=== PATIENT | female | born 1945 | race Caucasian/White ===

== ENCOUNTER 2016-07-02 19:33 | Emergency (ER) | payer MEDICARE ==
[2015-10-25 13:46] VITALS: BMI 22.8
[~2016-07-02 19:33] MED LIST: ANUSOL-HC25 MG RC; ARICEPT5 MG PO; ATIVAN0.5 MG PO; BAYER CHEWABLE81 MG PO; BUSPAR10 MG PO; COLACE100 MG PO; DEPAKOTE SPRIN125 MG PO; DULCOLAX5 MG PO; EFFEXOR37.5 MG PO; KLONOPIN0.5 MG PO; KLONOPIN1 MG PO; LATUDA80 MG PO; LEXAPRO10 MG PO; LIDODERM 5 %1 PATCH TRANSDERM; MICONAZOLE NITR28 GM TOPICAL; MIRALAX17 GM PO; NORCO 7.5/325 T1 TA1 PO; OXYTROL PATCH1 PATCH TRANSDERM; PRILOSEC20 MG PO; REMERON30 MG PO; THERAGRAN M [BK1 TAB PO; THEREMS-M1 TAB PO; TRAZODONE HCL50 MG PO; VITAMIN D5000 UNIT PO; VOLTAREN100 GM TOPICAL; ZYPREXA ZYDI5 MG/TAB PO
== END 2016-07-02 21:46 | disposition home or self-care (01) ==
LOC: D.ER 19:33
DX: S01.01XA Laceration without foreign body of scalp, initial encounter (principal); W19.XXXA Unspecified fall, initial encounter; Y93.89 Activity, other specified; Y92.019 Unspecified place in single-family (private) house as the place of occurrence of the external cause; S09.90XA Unspecified injury of head, initial encounter; F41.9 Anxiety disorder, unspecified; F31.9 Bipolar disorder, unspecified; F32.9 Major depressive disorder, single episode, unspecified

== ENCOUNTER 2016-07-02 22:37 | Emergency (ER) | payer MEDICARE ==
[2015-10-25 13:46] VITALS: BMI 22.8
[2016-07-02 23:16] LABS: BASOPHILS 0.2 % (0.0-2.0); EOSINOPHILS 2.3 % (0-7); HEMATOCRIT 34.1 % (36.0-48.0); IMMATURE GRANULOCYTES 0.3 % (0-5); LYMPHOCYTES 34.7 % (15-50); MCH 30.7 pg (26.0-34.0); MCHC 32.3 g/dL (31.0-37.0); MCV 95.3 fL (80.0-100.0); MEAN PLATELET VOLUME 9.9 fL (7.4-10.4); MONOCYTES 18.4 % (2-11); NEUTROPHILS 44.1 % (40-80); PLATELET COUNT 124 10x3/uL (130-400); RBC 3.58 10x6/uL (4.00-5.40); RDW 13.8 % (11.5-14.5); WBC 6.6 10x3/uL (4.8-10.8)
[2016-07-02 23:33] LABS: ALBUMIN 3.3 g/dL (3.4-5.0); ANION GAP 8.2 mmol/L (8-16); BILIRUBIN - TOTAL 0.2 mg/dL (0.2-1.3); CARBON DIOXIDE 33.5 mmol/L (21.0-32.0); CREATININE - SERUM 1.7 mg/dL (0.6-1.3); POTASSIUM - SERUM 4.7 mmol/L (3.5-5.1); PROTEIN - SERUM 6.7 g/dL (6.4-8.2)
[2016-07-02 23:40] LABS: CALCIUM 8.4 mg/dL (8.5-10.1)
== END 2016-07-02 23:56 | disposition home or self-care (01) ==
LOC: D.ER 22:37
PROVIDERS: Emergency Medicine
DX: I95.9 Hypotension, unspecified (principal); F41.9 Anxiety disorder, unspecified; F31.9 Bipolar disorder, unspecified; F03.90 Unspecified dementia, unspecified severity, without behavioral disturbance, psychotic disturbance, mood disturbance, and anxiety

== ENCOUNTER 2017-06-12 22:50 | Inpatient (IN) | payer MEDICARE ==
[~2017-06-12] VITALS: Ht 170.2 cm; Wt 72.6 kg
--- NOTE | ~2017-06-12 | PN ---
PATIENT:KOFI AWAD MEDICAL RECORD: [id number] LOCATION:SUSHIL CastroJayy ADMISSION DATE: 06/13/17 PROGRESS NOTE DATE OF SERVICE: 06/24/2017 SUBJECTIVE: The patient's case was discussed with staff. She has no new complaint. OBJECTIVE: The patient is in good behavioral control with limited insight about her condition. She is anxious to leave the hospital. Unfortunately, [facility] and the office of long-term care have not given approval yet. Once they do, I anticipate transitioning her back to the skilled nursing. TRANSINT:[id number] Voice Confirmation ID: [id number] DOCUMENT ID: [id number] JERALD CHRISTY MD at 0808 CC: [id number] DICTATION DATE: 06/24/17 1515 CHILD CARE SPECIALIST: 06/24/17 1542 ADM IN [facility] [address] [place] [address]
--- NOTE | ~2017-06-12 | PN ---
PATIENT:KOFI AWAD MEDICAL RECORD: [id number] LOCATION:SUSHIL Recio ADMISSION DATE: 06/13/17 PROGRESS NOTE DATE OF SERVICE: 06/17/2017 SUBJECTIVE: The patient's case was discussed with staff. She has no new complaint. OBJECTIVE: The patient is in good behavioral control with limited insight about her condition. She tolerates her medicines well, but insists that she is very anxious. ASSESSMENT: No change in diagnoses. PLAN: The patient will be given Klonopin at a higher dose. Her long-term prognosis is guarded. Brief supportive and educational interventions were made, and I am going to check a Depakote level in the morning. TRANSINT:[id number] Voice Confirmation ID: [id number] DOCUMENT ID: [id number] JERALD CHRISTY MD at 1317 CC: [id number] DICTATION DATE: 06/17/17 1242 STORE ASSOCIATE: 06/17/17 1320 ADM IN [place] [id number] [place] [address]
--- NOTE | ~2017-06-12 | PN ---
PATIENT:KOFI AWAD MEDICAL RECORD: [id number] LOCATION:SUSHIL Recio ADMISSION DATE: 06/13/17 PROGRESS NOTE DATE OF SERVICE: 06/14/2017 SUBJECTIVE: The patient's case was discussed with staff. She has no new complaint. OBJECTIVE: The patient denies intent to harm herself or others. She generally tolerates her medicines well. She has been sleeping reasonably well. ASSESSMENT: No change in diagnoses. PLAN: The patient has significantly improved. She has limited insight about her situation. I am going to treat her with a lower dose of Klonopin and will maintain her on her other medications. TRANSINT:[id number] Voice Confirmation ID: [id number] DOCUMENT ID: [id number] JERALD CHRISTY MD at 1105 CC: [id number] DICTATION DATE: 06/14/17 1007 HOME CARE CHAPLAIN: 06/14/17 1238 ADM IN [place] [address] [place] [address]
--- NOTE | ~2017-06-12 | PN ---
PATIENT:KOFI AWAD MEDICAL RECORD: [id number] LOCATION:SUSHIL BorgesRafaelJayy ADMISSION DATE: 06/13/17 PROGRESS NOTE DATE OF SERVICE: 06/18/2017 SUBJECTIVE: The patient's case was discussed with staff. She has no new complaint. OBJECTIVE: The patient is calm and cooperative. She has limited insight about her condition. ASSESSMENT: No change in diagnoses. PLAN: The patient denies that she would seek to harm herself or others. She generally tolerates her medicines well. Eye contact is fair. I do plan on transitioning her back to the [facility]. She wants to have an apartment on her own in [place]. TRANSINT:[id number] Voice Confirmation ID: [id number] DOCUMENT ID: [id number] JERALD CHRISTY MD at 1322 CC: [id number] DICTATION DATE: 06/18/17 1335 CHEMICAL PLANT TECHNICAL DIRECTOR: 06/18/17 1354 ADM IN [place] [address] [place] [id number]
--- NOTE | ~2017-06-12 | DS ---
PATIENT:KOFI AWAD :49 MEDICAL RECORD: [id number] DISCHARGE SUMMARY ADMISSION DATE: 06/13/17 DISCHARGE DATE: 06/27/17 IDENTIFYING DATA: The patient is 71 years old and she was admitted to the hospital on a voluntary basis because of suicidal thoughts. The patient lives in a local intermediate. She has been in the intermediate for a long time and recently has become increasingly depressed. She endorses numerous neurovegetative depressive symptoms and has recently been having thoughts about killing herself. She had made plans to kill herself by electrocuting herself at the intermediate. She was clearly manic and delusional in addition to being depressed. She was admitted to the hospital to evaluate and treat these symptoms. HOSPITAL COURSE: The patient was admitted to the hospital and fully evaluated from both a medical, psychological, and social standpoint. She was treated with both mood stabilizing and memory enhancing medications. She did show improvement in her overall mood lability and a reduction in her delusional thought processes. She had a therapeutic lithium level and was subsequently transitioned out of the hospital. DISCHARGE DIAGNOSES: AXIS I: Schizoaffective disorder, bipolar type. AXIS II: Deferred. AXIS III: None. AXIS IV: Moderate stressors. AXIS V: Global assessment of functioning is 35. PLAN: At the time of discharge, the patient was in good behavioral control and had no active thoughts of harming herself or others. She was tolerating her medications well. Her long-term prognosis is guarded. TRANSINT:[id number] Voice Confirmation ID: [id number] DOCUMENT ID: [id number] JERALD CHRISTY MD at 1315 CC: [id number] DICTATION DATE: 07/02/17 1039 CHEMICAL EQUIPMENT SALES ENGINEER: 07/03/17 0329 DIS IN 06/27/17 [facility] [address] [place] [id number]
--- NOTE | ~2017-06-12 | PN ---
PATIENT:KOFI AWAD MEDICAL RECORD: [id number] LOCATION:SUSHIL Recio ADMISSION DATE: 06/13/17 PROGRESS NOTE DATE OF SERVICE: 06/25/2017 SUBJECTIVE: The patient's case was discussed with staff. She has no new complaint. OBJECTIVE: The patient is in good behavioral control. She has poor insight about her condition. She tolerates her medicines well. ASSESSMENT: No change in diagnoses. PLAN: Current medicines and therapies have been reviewed and will be maintained. Her long-term prognosis is guarded. I anticipate she can be transitioned out of the hospital soon if this level of improvement is maintained. TRANSINT:[id number] Voice Confirmation ID: [id number] DOCUMENT ID: [id number] JERALD CHRISTY MD at 1240 CC: [id number] DICTATION DATE: 06/25/17 1251 FEEDER WORKER POWER UNIT OPERATOR: 06/25/17 1310 ADM IN [place] [id number] [place] [address]
--- NOTE | ~2017-06-12 | PSY ---
PATIENT NAME:KOFI AWAD MEDICAL RECORD: [id number] : 49 LOCATION:SUSHIL Recio8 ADMISSION DATE: 06/13/17 ACCOUNT: [id number] PSYCHIATRIC EVALUATION DATE OF EVALUATION: 06/13/17 IDENTIFYING DATA: The patient is 71 years old and she was admitted to the hospital on a voluntary basis. CHIEF COMPLAINT: Suicidal thoughts. HISTORY OF PRESENT ILLNESS: The patient comes to us from a local intermediate where she has been for years. The patient has been quite depressed and endorses numerous neurovegetative depressive symptoms. In addition to this, she has recently begun thinking about killing herself. She has made a plan to electrocute herself. Apparently, she did this after reading about a philosopher who did this a long time ago. She told her plan to someone at the intermediate, who intervened. She repeats it to me when asked, says that she is not sure if she would still carry it out, but that she certainly is unhappy and does not really care what happens to her. PAST MEDICAL HISTORY: None. PAST PSYCHIATRIC HISTORY: Significant for longstanding mental illness with an established diagnosis of schizoaffective disorder, bipolar type. She also has a history of dementia. SOCIAL HISTORY: The patient is from [place]. 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 She became mentally ill and dropped out. She was 3 times through her adult life and 3 times. She has no children, and she has 2 sisters who are about 10 years older than her, both live out of state and she has little contact with them. MENTAL STATUS EXAMINATION: The patient is awake, alert, and oriented to person, place, time, and situation. Her mood is flat. Her affect is constricted. Thought processes are circumstantial. Memory, concentration, and abstraction abilities are at least moderately impaired, and she denies any active intent to harm herself or others as well as overt psychotic symptoms. ASSETS: Supportive family members. LIABILITIES: Limited insight. DIAGNOSTIC IMPRESSION: AXIS I: Schizoaffective disorder, bipolar type. AXIS II: Deferred. AXIS III: None. AXIS IV: Moderate stressors. AXIS V: Global assessment of functioning is 30. PLAN: At this time, the patient is admitted to the hospital for a comprehensive medical, psychological, and social evaluation. She will be treated with both mood stabilizing and memory enhancing medications as deemed appropriate. Her long-term prognosis is guarded. TRANSINT:[id number] Voice Confirmation ID: [id number] DOCUMENT ID: [id number] JERALD CHRISTY MD at 0944 CC: [id number] DICTATION DATE: 06/13/17 1223 PREPARATION OPERATOR: 06/13/17 1236 ADM IN [place] [id number] [place] [id number]
--- NOTE | ~2017-06-12 | PN ---
PATIENT:KOFI AWAD MEDICAL RECORD: [id number] LOCATION:SUSHIL Recio ADMISSION DATE: 06/13/17 PROGRESS NOTE DATE OF SERVICE: 06/27/2017 SUBJECTIVE: No new complaint. OBJECTIVE: The patient's Estefany assessment has returned and she will be able to be discharged today to [facility]. On exam, mood is euthymic. Affect is pleasant, somewhat expansive. Speech is fluent. Content of thought is negative for overt psychosis. Sensorium unchanged. ASSESSMENT: No change in diagnosis. PLAN: Anticipate discharge later today on current medications. TRANSINT:[id number] Voice Confirmation ID: [id number] DOCUMENT ID: [id number] JABARI MARCIAL III, MD at 0503 CC: [id number] DICTATION DATE: 06/27/17 1142 MANAGER FINANCIAL: 06/27/17 1214 DIS IN 06/27/17 [facility] [address] [place] [address]
--- NOTE | ~2017-06-12 | PN ---
PATIENT:KOFI AWAD MEDICAL RECORD: [id number] LOCATION:SUSHIL Castro112 ADMISSION DATE: 06/13/17 PROGRESS NOTE DATE OF SERVICE: 06/21/2017 SUBJECTIVE: The patient's case was discussed with staff. She has no new complaint. OBJECTIVE: The patient denies intent to harm herself or others. She generally tolerates her medicines well. She is limited in her insight. [facility] the [facility] and if this level of improvement is maintained, I would anticipate she can go back soon. TRANSINT:[id number] Voice Confirmation ID: [id number] DOCUMENT ID: [id number] JERALD CHRISTY MD at 1101 CC: [id number] DICTATION DATE: 06/21/17 1219 DIVISION SERVICE MANAGER: 06/21/17 1252 ADM IN [facility] [address] [place] [address]
--- NOTE | ~2017-06-12 | PN ---
PATIENT:KOFI AWAD MEDICAL RECORD: [id number] LOCATION:SUSHIL Castro112 ADMISSION DATE: 06/13/17 PROGRESS NOTE DATE OF SERVICE: 06/26/2017 SUBJECTIVE: The patient's case was discussed with staff. She has no new complaint. OBJECTIVE: The patient denies intent to harm herself or others. She generally tolerates her medicines well. Eye contact is fair. ASSESSMENT: No change in diagnoses. PLAN: Brief supportive and educational interventions were made. I anticipate the patient can be transitioned out of the hospital soon. At this point, the office of long-term care has not given us approval and tomorrow is Friday. It may come soon, but it would appear that she is going to be with us through the weekend unless the notification comes back this afternoon. TRANSINT:[id number] Voice Confirmation ID: [id number] DOCUMENT ID: [id number] JERALD CHRISTY MD at 1418 CC: [id number] DICTATION DATE: 06/26/17 1255 RADIO MECHANIC APPRENTICE: 06/26/17 1328 DIS IN 06/27/17 [facility] [address] [place] [address]
--- NOTE | ~2017-06-12 | PN ---
PATIENT:KOFI AWAD MEDICAL RECORD: [id number] LOCATION:SUSHIL Recio ADMISSION DATE: 06/13/17 PROGRESS NOTE DATE OF SERVICE: 06/19/2017 SUBJECTIVE: The patient's case was discussed with staff. She has no new complaint. OBJECTIVE: The patient is in good behavioral control with poor insight about her condition. She says that she wants to go live on the street if she cannot live in her own apartment or is going to be forced to go back to [facility]. It is pointless to try to reason with her. ASSESSMENT: No change in diagnoses. PLAN: Current medicines have been reviewed and will be maintained. Long-term prognosis is guarded. TRANSINT:[id number] Voice Confirmation ID: [id number] DOCUMENT ID: [id number] JERALD CHRISTY MD at 1303 CC: [id number] DICTATION DATE: 06/19/17 1348 PATTERN GENERATOR OPERATOR: 06/19/17 1415 ADM IN [place] [id number] [place] [address]
--- NOTE | ~2017-06-12 | PN ---
PATIENT:KOFI AWAD MEDICAL RECORD: [id number] LOCATION:SUSHIL BorgesRafaelJayy ADMISSION DATE: 06/13/17 PROGRESS NOTE DATE OF SERVICE: 06/20/2017 SUBJECTIVE: The patient's case was discussed with staff. She has no new complaint. OBJECTIVE: The patient denies intent to harm herself or others. She generally tolerates her medicines well. ASSESSMENT: No change in diagnoses. PLAN: Brief supportive and educational interventions were made. The patient apparently told Dr. Christina that she was going to kill herself yesterday, but she tells me today she was just angry and frustrated about going back to the long-term. TRANSINT:[id number] Voice Confirmation ID: [id number] DOCUMENT ID: [id number] JERALD CHRISTY MD at 1204 CC: [id number] DICTATION DATE: 06/20/17 1315 PIZZA MAKER: 06/20/17 1329 ADM IN [place] [address] [place] [address]
--- NOTE | ~2017-06-12 | PN ---
PATIENT:KOFI AWAD MEDICAL RECORD: [id number] LOCATION:JonyAIMEEJb CastroJayy ADMISSION DATE: 06/13/17 PROGRESS NOTE DATE OF SERVICE: 06/23/2017 SUBJECTIVE: The patient's case was discussed with staff. She has no new complaint. OBJECTIVE: The patient is in good behavioral control. She denies any intent to harm herself or others. She has resolved herself to going back to the [facility], although she still wants to plead her case with her older sister who is her power of collar tacker. ASSESSMENT: No change in diagnoses. PLAN: Supportive and educational interventions were made. Nursing Home prognosis is guarded. TRANSINT:[id number] Voice Confirmation ID: [id number] DOCUMENT ID: [id number] JERALD CHRISTY MD at 1457 CC: [id number] DICTATION DATE: 06/23/17 1114 ON SITE NURSE: 06/23/17 1200 ADM IN [place] [address] [place] [address]
--- NOTE | ~2017-06-12 | PN ---
PATIENT:KOFI AWAD MEDICAL RECORD: [id number] LOCATION:SUSHIL Recio ADMISSION DATE: 06/13/17 PROGRESS NOTE DATE OF SERVICE: 06/15/2017 SUBJECTIVE: The patient's case was discussed with staff. She has no new complaint. OBJECTIVE: The patient is disorganized with poor insight about her condition. She complains of anxiety, but looks very calm. ASSESSMENT: No change in diagnoses. PLAN: Brief supportive and educational interventions were made. The patient's long-term prognosis is guarded. TRANSINT:[id number] Voice Confirmation ID: [id number] DOCUMENT ID: [id number] JERALD CHRISTY MD at 1156 CC: [id number] DICTATION DATE: 06/15/17 1208 SNACK BAR COOK: 06/15/17 1238 ADM IN [place] [id number] [place] [address]
[2017-06-12 23:12] LABS: APPEARANCE CLEAR (CLEAR); BACTERIA FEW /hpf (NONE SEEN); BILIRUBIN NEGATIVE (NEGATIVE); COLOR YELLOW (YELLOW); EPITHELIAL CELLS RARE /hpf (0-5); GLUCOSE NEGATIVE (NEGATIVE); KETONE NEGATIVE (NEGATIVE); NITRITE NEGATIVE (NEGATIVE); PROTEIN NEGATIVE (NEGATIVE); RED CELLS - URINE 0-5 /hpf (0-5); SPECIFIC GRAVITY 1.005 (1.005-1.020); UROBILINOGEN NORMAL (NORMAL)
[2017-06-12 23:51] LABS: BASOPHILS 0.3 % (0-2); EOSINOPHILS 2.7 % (0-7); HEMATOCRIT 34.3 % (36.0-48.0); HEMOGLOBIN 11.1 g/dL (12-16); IMMATURE GRANULOCYTES 0.3 % (0-5); LYMPHOCYTES 33.7 % (15-50); MCH 30.6 pg (26.0-34.0); MCHC 32.4 g/dL (31.0-37.0); MCV 94.5 fL (80.0-100.0); MEAN PLATELET VOLUME 9.8 fL (7.4-10.4); MONOCYTES 14.3 % (2-11); NEUTROPHILS 48.7 % (40-80); RBC 3.63 10x6/uL (4.00-5.40); RDW 13.8 % (11.5-14.5)
[2017-06-12 23:54] LABS: PLATELET COUNT 190 10x3/uL (130-400)
[2017-06-13 00:13] LABS: UDS - AMPHET NEGATIVE QUAL (NEGATIVE); UDS - BARB NEGATIVE QUAL (NEGATIVE); UDS - BENZO NEGATIVE QUAL (NEGATIVE); UDS - COCAINE NEGATIVE QUAL (NEGATIVE); UDS - OPIATE NEGATIVE QUAL (NEGATIVE); UDS - PCP NEGATIVE QUAL (NEGATIVE); UDS - THC NEGATIVE QUAL (NEGATIVE)
[2017-06-13 00:15] LABS: ALBUMIN 3.1 g/dL (3.4-5.0); ANION GAP 13.8 mmol/L (8-16); BILIRUBIN - TOTAL 0.16 mg/dL (0.2-1.3); CALCIUM 8.4 mg/dL (8.5-10.1); CARBON DIOXIDE 26.6 mmol/L (21.0-32.0); CREATININE - SERUM 1.4 mg/dL (0.6-1.3); POTASSIUM - SERUM 4.4 mmol/L (3.5-5.1); PROTEIN - SERUM 6.2 g/dL (6.4-8.2); VALPROIC ACID (DEPAKOTE) 32.7 ug/mL (50.0-100.0)
[2017-06-13 01:50] VITALS: BP 130/64
[2017-06-13] MEDS ORDERED: DEPAKOTE ER500 MG PO (05:53)
[2017-06-13] MEDS ORDERED: DULCOLAX5 MG PO (06:03)
[2017-06-13] MEDS ORDERED: EFFEXOR XR37.5 MG PO (06:06)
[2017-06-13] MEDS ORDERED: ZYPREXA10 MG PO (06:11)
[2017-06-13] MEDS ORDERED: ARICEPT5 MG PO (06:12)
[2017-06-13] MEDS ORDERED: LATUDA80 MG PO (06:12)
[2017-06-13] MEDS ORDERED: REMERON30 MG PO (06:14)
[2017-06-13] MEDS ORDERED: TRAZODONE HCL50 MG PO (06:15)
[2017-06-13] MEDS ORDERED: SINEMET CR 50-1 EACH PO (06:17)
[2017-06-13] MEDS ORDERED: SENNA PLUS TA1 UDTAB PO (06:18)
[2017-06-13] MEDS ORDERED: THEREMS-M1 TAB PO (06:19)
[2017-06-13] MEDS ORDERED: ACETAMINOPHEN325 MG PO (06:21)
[2017-06-13 07:34] LABS: CHOL - HDL RATIO 3.2 ratio (2.3-4.1); LDL-HDL RATIO 1.5 ratio (1.5-3.5)
[2017-06-13 07:43] LABS: HEMOGLOBIN A1C 5.9 % (4.8-6.0)
[2017-06-13 09:37] VITALS: BP 136/65
[2017-06-13 11:31] VITALS: BMI 25.1
[2017-06-13 19:35] VITALS: BP 122/60
[2017-06-14 10:20] VITALS: BP 136/76
[2017-06-14 20:03] VITALS: BP 132/64
[2017-06-15 07:00] VITALS: BP 122/64
[2017-06-15 08:52] VITALS: BP 122/64
[2017-06-15 19:25] LABS: APPEARANCE CLEAR (CLEAR); BILIRUBIN NEGATIVE (NEGATIVE); COLOR STRAW (YELLOW); GLUCOSE NEGATIVE (NEGATIVE); KETONE NEGATIVE (NEGATIVE); NITRITE POSITIVE (NEGATIVE); PROTEIN TRACE mg/dL (NEGATIVE); SPECIFIC GRAVITY 1.005 (1.005-1.020); UROBILINOGEN NORMAL (NORMAL)
[2017-06-15 19:27] LABS: BACTERIA FEW /hpf (NONE SEEN); WHITE CELLS - URINE 0-5 /hpf (0-5)
[2017-06-15 19:53] VITALS: BP 120/58
[2017-06-16 08:22] VITALS: BP 151/061; BP 181/061
[2017-06-16 19:21] VITALS: BP 107/48
[2017-06-17 07:00] VITALS: BP 115/68
[2017-06-17 13:15] VITALS: Ht 170.2 cm; Wt 72.6 kg
[2017-06-17 19:46] VITALS: BP 137/87
[2017-06-18 08:55] VITALS: BP 139/063
[2017-06-18 19:41] VITALS: BP 114/75
[2017-06-19 07:37] VITALS: BP 116/58
[2017-06-19 19:30] VITALS: BP 126/86
[2017-06-20 08:44] VITALS: BP 145/74
[2017-06-20 19:30] VITALS: BP 131/81
[2017-06-21 10:50] VITALS: BP 166/84
[2017-06-21 20:33] VITALS: BP 160/60
[2017-06-22 07:00] VITALS: BP 127/74
[2017-06-22 20:30] VITALS: BP 110/50; BP 110/54
[2017-06-23 08:36] VITALS: BP 136/91
[2017-06-23 19:56] VITALS: BP 125/68
[2017-06-24 08:49] VITALS: BP 148/091
[2017-06-25 08:00] VITALS: BP 128/054
[2017-06-25 19:36] VITALS: BP 120/51
[2017-06-26 09:37] VITALS: BP 132/81
[2017-06-26 20:35] VITALS: BP 120/52
[2017-06-27 09:32] VITALS: BP 119/74
[2017-06-27] MEDS ORDERED: KLONOPIN1 MG PO (11:14)
[2017-06-27] MEDS ORDERED: VITAMIN D5000 UNIT PO (11:15)
== END 2017-06-27 16:30 | DRG 885 ==
LOC: D.ER 22:50 → D.PSYCH 06-13 01:10
PROVIDERS: Family Medicine; Psychiatry & Neurology Psychiatry
DX: F25.0 Schizoaffective disorder, bipolar type (principal); R45.851 Suicidal ideations; F41.9 Anxiety disorder, unspecified; G20 Parkinson's disease; F02.80 Dementia in other diseases classified elsewhere, unspecified severity, without behavioral disturbance, psychotic disturbance, mood disturbance, and anxiety; K21.9 Gastro-esophageal reflux disease without esophagitis; K59.09 Other constipation; L84 Corns and callosities; E55.9 Vitamin D deficiency, unspecified

== ENCOUNTER 2017-09-10 19:45 | Inpatient (IN) | payer MEDICARE ==
--- NOTE | ~2017-09-10 | DS ---
PATIENT:RACHEAL AWAD :49 MEDICAL RECORD: [id number] DISCHARGE SUMMARY ADMISSION DATE: 09/10/17 DISCHARGE DATE: 09/17/17 IDENTIFYING DATA: The patient is 72 years old and well known to me from previous clinical contact. She lives in a local assisted and has been making suicidal statements and endorsing vegetative depressive symptoms. All of this is related to frustration about not being able to live on her own. She has a guardian who happens to be her older sister. The older sister is almost 80 or is 80 and lives in [place], [place]. Racheal has a long history of not functioning well on her own and for a long time has been in a assisted. She is frustrated by these circumstances and says she wants to kill herself for that reason. HOSPITAL COURSE: The patient was admitted to the hospital and fully evaluated from both a medical, psychological, and social standpoint. She was treated with antidepressant and mood stabilizing medications and actually did show improvement in her condition. She was not happy about the circumstances, particularly with her sister, but she was accepting of it and returned to the assisted without making any threats. DISCHARGE DIAGNOSES: AXIS I: Schizoaffective disorder, bipolar type. AXIS II: None. AXIS III: None. AXIS IV: Moderate stressors. AXIS V: Global Assessment of Functioning is 40. PLAN: At the time of discharge, the patient was in good behavioral control with limited insight about her condition. She was tolerating her medications well. Her long-term prognosis is guarded. TRANSINT:[id number] Voice Confirmation ID: [id number] DOCUMENT ID: [id number] JERALD CHRISTY MD at 1444 CC: [id number] DICTATION DATE: 09/23/17 1514 ARTIFICIAL INSEMINATION TECHNICIAN: 09/23/17 1619 DIS IN 09/17/17 [place] [id number] [place] [address]
--- NOTE | ~2017-09-10 | PN ---
PATIENT:KOFI AWAD MEDICAL RECORD: [id number] LOCATION:SUSHIL Recio ADMISSION DATE: 09/10/17 PROGRESS NOTE DATE OF SERVICE: 09/12/2017 SUBJECTIVE: No new complaint offered. OBJECTIVE: The patient has voiced some suicidal ideation, although she does not at the moment. Mood is for the most part euthymic. Affect is still somewhat expansive. Speech is fluent. Content of thought is as noted above. Sensorium shows no change. ASSESSMENT: No change in diagnosis. PLAN: 1. Continue present medications. 2. Continue supportive therapy. TRANSINT:[id number] Voice Confirmation ID: [id number] DOCUMENT ID: [id number] JABARI MARCIAL III, MD at 1341 CC: [id number] DICTATION DATE: 09/12/17 1148 SINGLE CORNER CUTTER: 09/12/17 1154 ADM IN [facility] [address] [place] [id number]
--- NOTE | ~2017-09-10 | PSY ---
PATIENT NAME:KOFI AWAD MEDICAL RECORD: [id number] : 49 LOCATION:JonyCINDY Recio8 ADMISSION DATE: 09/10/17 ACCOUNT: [id number] PSYCHIATRIC EVALUATION DATE OF EVALUATION: 09/11/17 IDENTIFYING DATA: The patient is 71 years old and she is very well known to me from previous clinical contact. She was last here in May of 2017. The patient currently presents back because she has made suicidal statements in the [facility]. She tells me that is correct and that she is unhappy about living in the ch[facility] and that she is going to kill herself by not eating. This was discussed in an open manner and the patient says that she is so unhappy living there and feels so frustrated because she cannot live in her own apartment that she is going to kill herself in this passive manner. She does not endorse many neurovegetative depressive symptoms, in fact she does not present as a depressed individual when I am speaking with her. PAST MEDICAL HISTORY: None. PAST PSYCHIATRIC HISTORY: Significant for longstanding chronic mental illness with an established diagnosis of schizoaffective disorder, bipolar type. She also has a history of dementia that is somewhat poorly documented. SOCIAL HISTORY: The patient is from [place]. She attended the [employer] and was accepted into [employer] where she went for 1 year before she became mentally ill and was forced to withdraw. She was 3 times and has been 3 times. She has no children, but she does have 2 sisters who are both about 10 years older than her, one has a little bit of contact with her and she lives in [place]. MENTAL STATUS EXAMINATION: The patient is awake, alert and oriented to person, place, time, and situation. Her mood is flat. Her affect is constricted. Thought processes are circumstantial. Memory, concentration, and abstraction abilities are moderately impaired and she denies any active intent to harm herself or others as well as any overt psychotic symptoms. ASSETS: Stable living environment. LIABILITIES: Limited insight. DIAGNOSTIC IMPRESSION: AXIS I: Schizoaffective disorder, bipolar type. AXIS II: None. AXIS III: None. AXIS IV: Moderate stressors. AXIS V: Global assessment of functioning is 35. PLAN: At this time, the patient is admitted to the hospital for a comprehensive medical, psychological, and social evaluation. She will be treated with both mood stabilizing and memory enhancing medications as deemed appropriate. Her long-term prognosis is guarded. TRANSINT:[id number] Voice Confirmation ID: [id number] DOCUMENT ID: [id number] JERALD CHRISTY MD at 1403 CC: [id number] DICTATION DATE: 09/11/17 1352 WEB PRODUCTION MANAGER: 09/11/17 1423 ADM IN [place] [address] [place] [address]
--- NOTE | ~2017-09-10 | PN ---
PATIENT:KOFI AWAD MEDICAL RECORD: [id number] LOCATION:SUSHIL Recio ADMISSION DATE: 09/10/17 PROGRESS NOTE DATE OF SERVICE: 09/16/2017 SUBJECTIVE: The patient's case was discussed with staff. She has no new complaint. OBJECTIVE: The patient is in good behavioral control with limited insight about her condition. She tolerates her medicines well. ASSESSMENT: No change in diagnoses. PLAN: The patient scored a 15/[address] Perez's testing indicating the presence of a dementia. She will be transitioned out of the hospital tomorrow. There is no evidence of direct or acute dangerousness. Her sister is her guardian and does not want her to change her living arrangements. TRANSINT:[id number] Voice Confirmation ID: [id number] DOCUMENT ID: [id number] JERALD CHRISTY MD at 1218 CC: [id number] DICTATION DATE: 09/16/17 1451 PRESIDENT + PUBLISHER: 09/16/17 1500 ADM IN [place] [id number] [place] [id number]
--- NOTE | ~2017-09-10 | PN ---
PATIENT:KOFI AWAD MEDICAL RECORD: [id number] LOCATION:SUSHIL Castro112 ADMISSION DATE: 09/10/17 PROGRESS NOTE DATE OF SERVICE: 09/17/2017 SUBJECTIVE: The patient's case was discussed with staff. She has no new complaint. OBJECTIVE: The patient is in good behavioral control and has no thoughts of harming herself or others. I anticipate she can be transitioned back to the longterm today. TRANSINT:[id number] Voice Confirmation ID: [id number] DOCUMENT ID: [id number] JERALD CHRISTY MD at 1341 CC: [id number] DICTATION DATE: 09/17/17 1234 COPIER AND PRINTER FIELD TECHNICIAN: 09/17/17 1300 DIS IN 09/17/17 [place] [id number] [place] [address]
--- NOTE | ~2017-09-10 | PN ---
PATIENT:KOFI AWAD MEDICAL RECORD: [id number] LOCATION:SUSHIL Recio ADMISSION DATE: 09/10/17 PROGRESS NOTE DATE OF SERVICE: 09/15/2017 SUBJECTIVE: The patient's case was discussed with staff. She has no new complaint. OBJECTIVE: The patient is in good behavioral control with limited insight about her condition. She tolerates her medicines well. ASSESSMENT: No change in diagnoses. PLAN: The patient will have a Depakote level checked tomorrow morning. Dr. Idalia Perez scheduled to test her and I suspect there is some cognitive impairment, although it may be difficult to detect. 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 I believe she is significantly above average intelligence. TRANSINT:[id number] Voice Confirmation ID: [id number] DOCUMENT ID: [id number] JERALD CHRISTY MD at 1344 CC: [id number] DICTATION DATE: 09/15/17 1428 CERTIFIED COMPOSITES TECHNICIAN: 09/15/17 1448 ADM IN [place] [address] [place] [id number]
[~2017-09-10 19:45] MED LIST changes: +ACETAMINOPHEN325 MG PO; +DEPAKOTE ER500 MG PO; +EFFEXOR XR37.5 MG PO; +SENNA PLUS TA1 UDTAB PO; +SINEMET CR 50-1 EACH PO; +ZYPREXA10 MG PO
[2017-09-10] MEDS ORDERED: KLONOPIN1 MG PO (21:16)
[2017-09-10 21:56] LABS: BASOPHILS 0.2 % (0-2); EOSINOPHILS 2.7 % (0-7); HEMATOCRIT 33.5 % (36.0-48.0); HEMOGLOBIN 10.7 g/dL (12-16); IMMATURE GRANULOCYTES 0.2 % (0-5); LYMPHOCYTES 31.7 % (15-50); MCH 30.3 pg (26.0-34.0); MCHC 31.9 g/dL (31.0-37.0); MCV 94.9 fL (80.0-100.0); MEAN PLATELET VOLUME 9.7 fL (7.4-10.4); MONOCYTES 17.5 % (2-11); NEUTROPHILS 47.7 % (40-80); PLATELET COUNT 130 10x3/uL (130-400); RBC 3.53 10x6/uL (4.00-5.40); RDW 13.5 % (11.5-14.5); WBC 6.4 10x3/uL (4.8-10.8)
[2017-09-10 22:18] LABS: ALBUMIN 3.1 g/dL (3.4-5.0); BILIRUBIN - TOTAL 0.28 mg/dL (0.2-1.3); CALCIUM 8.5 mg/dL (8.5-10.1); CARBON DIOXIDE 27.1 mmol/L (21.0-32.0); CHOL - HDL RATIO 2.6 ratio (2.3-4.1); CREATININE - SERUM 1.5 mg/dL (0.6-1.3); LDL-HDL RATIO 1.3 ratio (1.5-3.5); POTASSIUM - SERUM 4.1 mmol/L (3.5-5.1); PROTEIN - SERUM 6.3 g/dL (6.4-8.2); THYROID STIMULATING HORMONE 1.35 uIU/mL (0.36-3.74)
[2017-09-11 02:44] VITALS: BP 116/52; BMI 21.5
[2017-09-11 08:11] VITALS: BP 128/77
[2017-09-11 11:41] LABS: APPEARANCE HAZY (CLEAR); BACTERIA MODERATE /hpf (NONE SEEN); BILIRUBIN NEGATIVE (NEGATIVE); COLOR YELLOW (YELLOW); EPITHELIAL CELLS 0-5 /hpf (0-5); GLUCOSE NEGATIVE (NEGATIVE); KETONE NEGATIVE (NEGATIVE); MUCUS <1+ /lpf (NONE SEEN); NITRITE POSITIVE (NEGATIVE); PROTEIN NEGATIVE (NEGATIVE); SPECIFIC GRAVITY 1.005 (1.005-1.020); UROBILINOGEN NORMAL (NORMAL)
[2017-09-11 13:58] VITALS: Wt 62.1 kg
[2017-09-11 20:13] VITALS: BP 140/67
[2017-09-12 06:13] LABS: RAPID PLASMA REAGIN Non Reactive (Non Reactive)
[2017-09-12 08:16] LABS: FOLATE (FOLIC ACID) - SERUM >20.0 ng/mL (>3.0)
[2017-09-12 10:17] LABS: VITAMIN D 25 HYDROXY 70.5 ng/mL (30.0-100.0)
[2017-09-12 21:20] VITALS: BP 134/69
[2017-09-13 12:49] VITALS: BP 145/75
[2017-09-13 21:34] VITALS: BP 130/59
[2017-09-14 07:00] VITALS: BP 128/79
[2017-09-15 07:28] VITALS: BP 126/78
[2017-09-15 21:22] VITALS: BP 123/63
[2017-09-16 09:45] VITALS: BP 124/68
[2017-09-16 19:41] VITALS: BP 135/57
[2017-09-17 08:54] VITALS: BP 117/68
[2017-09-18 18:09] LABS: AEROBE ID Final report (())
== END 2017-09-17 16:00 | DRG 885 ==
LOC: D.PSYCH 19:45
PROVIDERS: Psychiatry & Neurology Psychiatry
DX: F25.0 Schizoaffective disorder, bipolar type (principal); R45.851 Suicidal ideations; G20 Parkinson's disease; F02.80 Dementia in other diseases classified elsewhere, unspecified severity, without behavioral disturbance, psychotic disturbance, mood disturbance, and anxiety; F41.9 Anxiety disorder, unspecified; F32.9 Major depressive disorder, single episode, unspecified; K21.9 Gastro-esophageal reflux disease without esophagitis; N18.3 Chronic kidney disease, stage 3 (moderate); D50.9 Iron deficiency anemia, unspecified; K59.09 Other constipation; E55.9 Vitamin D deficiency, unspecified; E88.09 Other disorders of plasma-protein metabolism, not elsewhere classified

== ENCOUNTER 2017-12-07 20:06 | Emergency (ER) | payer MEDICARE ==
[~2017-12-07] VITALS: Ht 167.6 cm; Wt 59.1 kg
[2017-12-07 20:09] VITALS: Ht 167.6 cm; Wt 59.1 kg
[2017-12-07 21:31] VITALS: BP 132/74
== END 2017-12-07 21:32 | disposition home or self-care (01) ==
LOC: D.ER 20:06
DX: S01.81XA Laceration without foreign body of other part of head, initial encounter (principal); W19.XXXA Unspecified fall, initial encounter; Y93.89 Activity, other specified; Y92.129 Unspecified place in nursing home as the place of occurrence of the external cause; F03.90 Unspecified dementia, unspecified severity, without behavioral disturbance, psychotic disturbance, mood disturbance, and anxiety; Z86.59 Personal history of other mental and behavioral disorders

== ENCOUNTER 2018-01-16 21:39 | Emergency (ER) | payer MEDICARE ==
[~2018-01-16] VITALS: Ht 167.6 cm; Wt 62.7 kg
[2018-01-16 21:53] VITALS: Ht 167.6 cm; Wt 62.7 kg
[2018-01-17 01:07] VITALS: BP 110/73
== END 2018-01-17 01:07 ==
LOC: D.ER 21:39
DX: S09.90XA Unspecified injury of head, initial encounter (principal); W19.XXXA Unspecified fall, initial encounter; Y93.89 Activity, other specified; Y92.129 Unspecified place in nursing home as the place of occurrence of the external cause; F03.90 Unspecified dementia, unspecified severity, without behavioral disturbance, psychotic disturbance, mood disturbance, and anxiety; Z86.59 Personal history of other mental and behavioral disorders; K21.9 Gastro-esophageal reflux disease without esophagitis; G20 Parkinson's disease

== ENCOUNTER 2018-01-23 20:31 | Emergency (ER) | payer MEDICARE ==
[~2018-01-23] VITALS: Ht 167.6 cm; Wt 62.7 kg
[2018-01-23 20:33] VITALS: Ht 167.6 cm; Wt 62.7 kg
[2018-01-23] MEDS ORDERED: REMERON15 MG PO (20:40)
[2018-01-23] MEDS ORDERED: MEGACE40 MG PO (20:40)
[2018-01-23] MEDS ORDERED: ZYPREXA10 MG PO (20:41)
[2018-01-24 03:23] VITALS: BP 132/73
== END 2018-01-24 01:25 | disposition home or self-care (01) ==
LOC: D.ER 20:31
DX: S00.93XA Contusion of unspecified part of head, initial encounter (principal); W19.XXXA Unspecified fall, initial encounter; Y93.89 Activity, other specified; Y92.129 Unspecified place in nursing home as the place of occurrence of the external cause; I10 Essential (primary) hypertension; G30.9 Alzheimer's disease, unspecified; F02.80 Dementia in other diseases classified elsewhere, unspecified severity, without behavioral disturbance, psychotic disturbance, mood disturbance, and anxiety; K21.9 Gastro-esophageal reflux disease without esophagitis

== ENCOUNTER 2018-04-19 12:15 | Inpatient (IN) | payer MEDICARE ==
[~2018-04-19] VITALS: Ht 167.6 cm; Wt 68.2 kg
--- NOTE | ~2018-04-19 | MORECARE ---
CASE MANAGEMENT DISCHARGE SUMMARY PATIENT: KOFI AWAD UNIT: [id number] ADM DATE: 04/19/18 AGE: 72 : 47 SEX: F ROOM/BED: D.2222 AUTHOR: JESSICA FARAH PHYSICIAN: REFERRING PHYSICIAN: ZULEIKA GARCIA MD DATE OF SERVICE: 04/19/18 Discharge Plan Patient Name: KOFI [facility]AD [facility] [facility] 1945 Planned Disposition: Anticipated Discharge Date: 04/24/18 Discharge Date: Expected LOS: 5 Initial Reviewer: [id number] Initial Review Date: 04/19/2018 Generated: 04/19/18 5:46 pm Patient Name: KOFI AWAD Page [id number] at 1646 All edits/amendments must be made on the electronic document DICTATION DATE: 04/19/181645 TELEPHONE SERVICES SALES REPRESENTATIVE: SAUL 04/19/181645 RPT#: [id number] DC DATE: STATUS: ADM IN [facility] [address] [place] [address] END OF REPORT
--- NOTE | ~2018-04-19 | MORECARE ---
CASE MANAGEMENT DISCHARGE SUMMARY PATIENT: KOFI AWAD UNIT: [id number] ADM DATE: 04/19/18 AGE: 72 : [birth year] SEX: F ROOM/BED: D.2222 AUTHOR: GAGAN,DOC PHYSICIAN: REFERRING PHYSICIAN: ZULEIKA PERKINS MD DATE OF SERVICE: 04/22/18 Discharge Plan Patient Name: KOFI AWAD Facility: [facility]:[place] : 1945 Planned Disposition: Anticipated Discharge Date: 04/24/18 Discharge Date: 04/21/2018 Expected LOS: 5 Initial Reviewer: [email or web address] Initial Review Date: 04/19/2018 Generated: 04/22/18 4:23 pm Comments DCP- Discharge Planning Updated by [email or web address]: Justine Sharma on 04/21/18 10:[address] Received orders for discharge. Spoke with Corby at [facility] and clinical faxed to [phone] per her request. I informed Corby that she will have 5 more days of Levaquin via her midline. Corby states patient will be returning to her emt intermediate bed, nurse to call report to [facility]. She is discharging today to LTC (Medicaid bed) via ambulance. clearance coordinator informed of need for ambulance. DCP- Discharge Planning Updated by [email or web address]: Saira Esparza on 04/19/18 3:[address] Patient Name: KOFI AWAD Admission Status: ER Accout number: [id number] Admission Date: 04-19-2018 : 1945 Admission Diagnosis: Attending: ZULEIKA PERKINS Current LOS: 1 Anticipated DC Date: 04-24-2018 Planned Disposition: Primary Insurance: MEDICARE A & B Discharge Planning Comments: Patient disoriented during her ER stay. She is a resident at [facility] and she will return there upon discharge from the hospital. See Emergency Contact listed below (found on [place] Facesheet) CM will continue to follow and will assist with dc plans/needs. Paper Box Cutter: Saira Esparza RN, [facility] DCPIA - Discharge Planning Initial Assessment Updated by [email or web address]: Saira Esparza on 04/19/18 4:49 pm * Is the patient Alert and Oriented? No * How many steps to enter\exit or inside your home? None * PCP Dr. Perkins * [facility] * [facility] * Facility [facility] * ADLs Total Dependent * List name and contact numbers for known caregivers / representatives who currently or will assist patient after discharge: Sri Hart - - [phone] (home) [phone] (Business) * Verbal permission to speak to the caregivers and representatives has been obtained from the patient. Yes * Community resources currently utilized None * Additional services required to return to the preadmission environment? No * Can the patient safely return to the preadmission environment? Yes * Has this patient been hospitalized within the prior 30 days at any hospital? No Last DP export: 04/21/18 10:44 Patient Name: KOFI AWAD Page 30315 at 1523 All edits/amendments must be made on the electronic document DICTATION DATE: 04/22/181522 GOLF BALL INSPECTOR: SAUL 04/22/18 152 RPT#: [id number] DC DATE:04/21/18 STATUS: DIS IN [facility] [address] [place] [address] END OF REPORT
--- NOTE | ~2018-04-19 | MORECARE ---
CASE MANAGEMENT DISCHARGE SUMMARY PATIENT: KOFI AWAD UNIT: [id number] ADM DATE: 04/19/18 AGE: 72 : 47 SEX: F ROOM/BED: D.2222 AUTHOR: GAGAN,DOC PHYSICIAN: REFERRING PHYSICIAN: ZULEIKA PERKINS MD DATE OF SERVICE: 04/19/18 Discharge Plan Patient Name: KOFI AWAD Facility: [facility]:[place] : 1945 Planned Disposition: Anticipated Discharge Date: 04/24/18 Discharge Date: Expected LOS: 5 Initial Reviewer: [email or web address] Initial Review Date: 04/19/2018 Generated: 04/19/18 5:53 pm DCP- Discharge Planning Updated by [email or web address]: Saira Esparza on 04/19/18 3:[address] Patient Name: KOFI AWAD Admission Status: ER Accout number: [id number] Admission Date: 04-19-2018 : 1945 Admission Diagnosis: Attending: ZULEIKA PERKINS Current LOS: 1 Anticipated DC Date: 04-24-2018 Planned Disposition: Primary Insurance: MEDICARE A & B Discharge Planning Comments: Patient disoriented during her ER stay. She is a resident at [facility] and she will return there upon discharge from the hospital. See Emergency Contact listed below (found on [place] Facesheet) CM will continue to follow and will assist with dc plans/needs. Metal Control Coordinator: Saira Esparza RN, [facility] DCPIA - Discharge Planning Initial Assessment Updated by [email or web address]: Saira Esparza on 04/19/18 4:49 pm * Is the patient Alert and Oriented? No * How many steps to enter\exit or inside your home? None * PCP Dr. Perkins * [facility] * [facility] * Facility Name [facility] Resident * ADLs Total Dependent * List name and contact numbers for known caregivers / representatives who currently or will assist patient after discharge: Sri Hart - - [phone] (home) [phone] (Business) * Verbal permission to speak to the caregivers and representatives has been obtained from the patient. Yes * Community resources currently utilized None * Additional services required to return to the preadmission environment? No * Can the patient safely return to the preadmission environment? Yes * Has this patient been hospitalized within the prior 30 days at any hospital? No Last DP export: 04/19/18 3:46 Patient Name: KOFI AWAD Page 64610 at 1653 All edits/amendments must be made on the electronic document DICTATION DATE: 04/19/181652 SAILMAKER: SAUL 04/19/181652 RPT#: [id number] DC DATE: STATUS: ADM IN [facility] [address] [place] [address] END OF REPORT
--- NOTE | ~2018-04-19 | MORECARE ---
CASE MANAGEMENT DISCHARGE SUMMARY PATIENT: KOFI AWAD UNIT: [id number] ADM DATE: 04/19/18 AGE: 72 : [birth year] SEX: F ROOM/BED: D.2222 AUTHOR: GAGAN,DOC PHYSICIAN: REFERRING PHYSICIAN: ZULEIKA PERKINS MD DATE OF SERVICE: 04/21/18 Discharge Plan Patient Name: KOFI AWAD Facility: [facility]:[place] : 1945 Planned Disposition: Anticipated Discharge Date: 04/24/18 Discharge Date: Expected LOS: 5 Initial Reviewer: [email or web address] Initial Review Date: 04/19/2018 Generated: 04/21/18 12:36 pm DCP- Discharge Planning Updated by [email or web address]: Saira Esparza on 04/19/18 3:[address] Patient Name: KOFI AWAD Admission Status: ER Accout number: [id number] Admission Date: 04-19-2018 : 1945 Admission Diagnosis: Attending: ZULEIKA PERKINS Current LOS: 1 Anticipated DC Date: 04-24-2018 Planned Disposition: Primary Insurance: MEDICARE A & B Discharge Planning Comments: Patient disoriented during her ER stay. She is a resident at [facility] and she will return there upon discharge from the hospital. See Emergency Contact listed below (found on [place] Faces[place]) CM will continue to follow and will assist with dc plans/needs. Art Educator: Saira Esparza RN, [facility] DCPIA - Discharge Planning Initial Assessment Updated by [email or web address]: Saira Esparza on 04/19/18 4:49 pm * Is the patient Alert and Oriented? No * How many steps to enter\exit or inside your home? None * PCP Dr. Perkins * Pharmacy [facility] * Preadmission Environment [facility] * Facility Name [facility] Resident * ADLs Total Dependent * List name and contact numbers for known caregivers / representatives who currently or will assist patient after discharge: Sri Hart - - [phone] (home) [phone] (Business) * Verbal permission to speak to the caregivers and representatives has been obtained from the patient. Yes * Community resources currently utilized None * Additional services required to return to the preadmission environment? No * Can the patient safely return to the preadmission environment? Yes * Has this patient been hospitalized within the prior 30 days at any hospital? No External [facility]iders [facility] Next Contact Date: Service Request Date: Service Type: Resolution: Reviewer: Comments: Last DP export: 04/19/18 3:53 Patient Name: KOFI AWAD Page 41823 at 1136 All edits/amendments must be made on the electronic document DICTATION DATE: 04/21/18 1135 DRUPAL ARCHITECT: SAUL 04/21/18 1135 RPT#: [id number] DC DATE: STATUS: ADM IN [facility] [address] [place] [address] END OF REPORT
--- NOTE | ~2018-04-19 | MORECARE ---
CASE MANAGEMENT DISCHARGE SUMMARY PATIENT: KOFI AWAD UNIT: [id number] ADM DATE: 04/19/18 AGE: 72 : [birth year] SEX: F ROOM/BED: D.2222 AUTHOR: GAGAN,DOC PHYSICIAN: REFERRING PHYSICIAN: ZULEIKA PERKINS MD DATE OF SERVICE: 04/21/18 Discharge Plan Patient Name: KOFI AWAD Facility: [facility]:[place] : 1945 Planned Disposition: Anticipated Discharge Date: 04/24/18 Discharge Date: Expected LOS: 5 Initial Reviewer: [email or web address] Initial Review Date: 04/19/2018 Generated: 04/21/18 12:44 pm Comments DCP- Discharge Planning Updated by [email or web address]: Justine Shamra on 04/21/18 10:[address] Received orders for discharge. Spoke with Corby at [facility] and clinical faxed to [phone] per her request. I informed Corby that she will have 5 more days of Levaquin via her midline. Corby states patient will be returning to her terminal superintendent bed, nurse to call report to [facility]. She is discharging today to LTC (Medicaid bed) via ambulance. children's program coordinator informed of need for ambulance. DCP- Discharge Planning Updated by [email or web address]: Saira Esparza on 04/19/18 3:[address] Patient Name: KOFI AWAD Admission Status: ER Accout number: [id number] Admission Date: 04-19-2018 : 1945 Admission Diagnosis: Attending: ZULEIKA PERKINS Current LOS: 1 Anticipated DC Date: 04-24-2018 Planned Disposition: Primary Insurance: MEDICARE A & B Discharge Planning Comments: Patient disoriented during her ER stay. She is a resident at [facility] and she will return there upon discharge from the hospital. See Emergency Contact listed below (found on [place] Facesheet) CM will continue to follow and will assist with dc plans/needs. Fiberglasser: Saira Esparza RN, [facility] DCPIA - Discharge Planning Initial Assessment Updated by [email or web address]: Saira Esparza on 04/19/18 4:49 pm * Is the patient Alert and Oriented? No * How many steps to enter\exit or inside your home? None * PCP Dr. Perkins * [facility]acy [facility] * Preadmission Environment [facility] * Facility [facility] * ADLs Total Dependent * List name and contact numbers for known caregivers / representatives who currently or will assist patient after discharge: Sri Hart - - [phone] (home) [phone] (Business) * Verbal permission to speak to the caregivers and representatives has been obtained from the patient. Yes * Community resources currently utilized None * Additional services required to return to the preadmission environment? No * Can the patient safely return to the preadmission environment? Yes * Has this patient been hospitalized within the prior 30 days at any hospital? No Last DP export: 04/21/18 10:36 Patient Name: KOFI AWAD Page 54714 at 1144 All edits/amendments must be made on the electronic document DICTATION DATE: 04/21/181143 E LEARNING DEVELOPER: SAUL 04/21/18 1144 RPT#: [id number] DC DATE: STATUS: ADM IN [facility] [address] [place] [address] END OF REPORT
[~2018-04-19 12:15] MED LIST changes: +MEGACE40 MG PO; +REMERON15 MG PO
[2018-04-19 12:52] LABS: APPEARANCE CLEAR (CLEAR); BILIRUBIN NEGATIVE (NEGATIVE); COLOR YELLOW (YELLOW); GLUCOSE NEGATIVE (NEGATIVE); KETONE NEGATIVE (NEGATIVE); NITRITE NEGATIVE (NEGATIVE); PROTEIN 1+ mg/dL (NEGATIVE); UROBILINOGEN NORMAL (NORMAL); WHITE CELLS - URINE NSEEN /hpf (0-5)
[2018-04-19 12:53] LABS: EPITHELIAL CELLS NSEEN /hpf (0-5); RED CELLS - URINE OCC /hpf (0-5)
[2018-04-19 12:59] LABS: BASOPHILS 0.2 % (0-2); EOSINOPHILS 0.3 % (0-7); HEMATOCRIT 45.3 % (36.0-48.0); HEMOGLOBIN 14.5 g/dL (12-16); IMMATURE GRANULOCYTES 0.8 % (0-5); LYMPHOCYTES 22.4 % (15-50); MCH 31.3 pg (26.0-34.0); MCV 97.6 fL (80.0-100.0); MEAN PLATELET VOLUME 10.6 fL (7.4-10.4); MONOCYTES 8.8 % (2-11); NEUTROPHILS 67.5 % (40-80); RBC 4.64 10x6/uL (4.00-5.40); RDW 14.2 % (11.5-14.5); WBC 12.6 10x3/uL (4.8-10.8)
[2018-04-19 13:05] LABS: PLATELET COUNT 228 10x3/uL (130-400)
[2018-04-19 14:00] LABS: ALBUMIN 2.4 g/dL (3.4-5.0); ANION GAP 17.8 mmol/L (8-16); BILIRUBIN - TOTAL 0.34 mg/dL (0.2-1.3); CALCIUM 9.1 mg/dL (8.5-10.1); CARBON DIOXIDE 21.6 mmol/L (21.0-32.0); CREATININE - SERUM 2.1 mg/dL (0.6-1.3); POTASSIUM - SERUM 4.4 mmol/L (3.5-5.1); PROTEIN - SERUM 6.6 g/dL (6.4-8.2)
[2018-04-19 14:13] VITALS: BP 165/88
[2018-04-19 17:39] VITALS: BP 153/77
[2018-04-19] MEDS ORDERED: REMERON15 MG PO (22:12)
[2018-04-19] MEDS ORDERED: MEGACE40 MG PO (22:13)
[2018-04-19 22:28] VITALS: BP 109/78; Ht 167.6 cm; Wt 68.2 kg
[2018-04-20] VITALS: BP 99/53
[2018-04-20 04:00] VITALS: BP 132/66
[2018-04-20 05:52] LABS: BASOPHILS 0.1 % (0-2); EOSINOPHILS 0.8 % (0-7); HEMATOCRIT 37.9 % (36.0-48.0); HEMOGLOBIN 11.8 g/dL (12-16); IMMATURE GRANULOCYTES 0.4 % (0-5); LYMPHOCYTES 23.4 % (15-50); MCH 30.7 pg (26.0-34.0); MCHC 31.1 g/dL (31.0-37.0); MCV 98.7 fL (80.0-100.0); MEAN PLATELET VOLUME 10.6 fL (7.4-10.4); MONOCYTES 11.2 % (2-11); NEUTROPHILS 64.1 % (40-80); RBC 3.84 10x6/uL (4.00-5.40); WBC 10.3 10x3/uL (4.8-10.8)
[2018-04-20 06:09] LABS: PLATELET COUNT 140 10x3/uL (130-400)
[2018-04-20 06:23] LABS: ALBUMIN 2.2 g/dL (3.4-5.0); BILIRUBIN - TOTAL 0.31 mg/dL (0.2-1.3); CALCIUM 9.1 mg/dL (8.5-10.1); CARBON DIOXIDE 23.4 mmol/L (21.0-32.0); CREATININE - SERUM 1.6 mg/dL (0.6-1.3); POTASSIUM - SERUM 4.3 mmol/L (3.5-5.1); PROTEIN - SERUM 6.3 g/dL (6.4-8.2); VANCOMYCIN - TROUGH 12.2 ug/mL (10.0-20.0)
[2018-04-20 06:33] LABS: ANION GAP 14.9 mmol/L (8-16)
[2018-04-20 08:50] VITALS: BP 103/69
[2018-04-20 16:17] VITALS: BP 122/58
[2018-04-20 21:47] VITALS: BP 125/59
[2018-04-21 05:43] VITALS: BP 120/39
[2018-04-21 06:43] LABS: BASOPHILS 0.1 % (0-2); EOSINOPHILS 4.1 % (0-7); HEMATOCRIT 30.8 % (36.0-48.0); HEMOGLOBIN 9.8 g/dL (12-16); IMMATURE GRANULOCYTES 0.6 % (0-5); LYMPHOCYTES 20.2 % (15-50); MCH 30.5 pg (26.0-34.0); MCHC 31.8 g/dL (31.0-37.0); MEAN PLATELET VOLUME 10.5 fL (7.4-10.4); MONOCYTES 10.6 % (2-11); NEUTROPHILS 64.4 % (40-80); RBC 3.21 10x6/uL (4.00-5.40); RDW 13.5 % (11.5-14.5); WBC 8.6 10x3/uL (4.8-10.8)
[2018-04-21 06:44] LABS: PLATELET COUNT 105 10x3/uL (130-400)
[2018-04-21 07:12] LABS: ANION GAP 12.5 mmol/L (8-16); BILIRUBIN - TOTAL 0.16 mg/dL (0.2-1.3); CALCIUM 7.9 mg/dL (8.5-10.1); CARBON DIOXIDE 25.1 mmol/L (21.0-32.0); CREATININE - SERUM 1.5 mg/dL (0.6-1.3); PROTEIN - SERUM 5.1 g/dL (6.4-8.2); VANCOMYCIN - RANDOM 15.8 ug/mL (10.0-20.0)
[2018-04-21 07:15] LABS: POTASSIUM - SERUM 3.6 mmol/L (3.5-5.1)
[2018-04-21 09:57] VITALS: BP 101/41
[2018-04-21] MEDS ORDERED: Levaquin PREMIX IV (10:18)
[2018-04-21] MEDS ORDERED: KLONOPIN0.5 MG PO (10:19)
[2018-04-21] MEDS ORDERED: FLORAJEN3 CAPS460 MG PO (10:20)
[2018-04-21 13:58] VITALS: BP 99/39
== END 2018-04-21 15:26 | DRG 872 ==
LOC: D.ER 12:15 → D.MS 16:26
PROVIDERS: Emergency Medicine; Family Medicine
PROC: 05HC33Z Insertion of Infusion Device into Left Basilic Vein, Percutaneous Approach (ICD-10-PCS; principal; 2018-04-20)
PROC: B54NZZA Ultrasonography of Left Upper Extremity Veins, Guidance (ICD-10-PCS; 2018-04-20)
DX: A41.9 Sepsis, unspecified organism (principal); N17.9 Acute kidney failure, unspecified; E87.0 Hyperosmolality and hypernatremia; K21.9 Gastro-esophageal reflux disease without esophagitis; G30.9 Alzheimer's disease, unspecified; F02.80 Dementia in other diseases classified elsewhere, unspecified severity, without behavioral disturbance, psychotic disturbance, mood disturbance, and anxiety; E03.9 Hypothyroidism, unspecified; F25.0 Schizoaffective disorder, bipolar type; N18.9 Chronic kidney disease, unspecified; D50.9 Iron deficiency anemia, unspecified; E55.9 Vitamin D deficiency, unspecified; N32.81 Overactive bladder

== ENCOUNTER 2018-07-23 16:20 | Inpatient (IN) | payer MEDICARE ==
[~2018-07-23] VITALS: Ht 167.6 cm; Wt 59.3 kg
--- NOTE | ~2018-07-23 | PN ---
PATIENT:KOFI HUNTLEY MEDICAL RECORD: [id number] LOCATION:S[facility] [address] ADMISSION DATE: 07/23/18 PROGRESS NOTE DATE OF SERVICE: 08/01/2018 SUBJECTIVE: Ms. Huntley is a 72-year-old female resident of local [facility]. She states she was previously a resident in the [facility] and Dr. 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 She came to us secondary to suicidal ideations with plan to electrocute herself with fork in the wall. She did remember me from yesterday and was able to call me by name. She seems somewhat anxious, attention seeking as evidenced by frequently yesterday and today call Dr. Ortega and today myself back over. Her valproic acid level yesterday was 52.2. She is noted to have a bilateral upper extremity tremor. She complained of a little bit of irritability today. OBJECTIVE: LATEST VITAL SIGNS: 98.6, 77, 17, 160/64, 96%. ASSESSMENT: Unchanged. PLAN: Continue to monitor for suicidal ideation. Might consider if possible therapy appointments for patient as she seems to be not continuing to do well with processing her anxiety and other issues on an outpatient basis. Case discussed with nursing, chart review and patient interview. TRANSINT:[id number] Voice Confirmation ID: [id number] DOCUMENT ID: [id number] SIDDHARTHA MCGRAW MD CC: [id number] DICTATION DATE: 08/01/18 1051 MANAGER CHILD: 08/01/18 1140 ADM IN [place] [address] [place] [address]
--- NOTE | ~2018-07-23 | PN ---
PATIENT:KOFI HUNTLEY MEDICAL RECORD: [id number] LOCATION:S[facility] [address]112 ADMISSION DATE: 07/23/18 PROGRESS NOTE DATE OF SERVICE: 08/03/2018 SUBJECTIVE: Ms. Huntley is a 72-year-old female who was admitted secondary to suicidal ideation with a plan to stick a fork in an outlet. The patient is well known to this facility and Dr. Ortega as she has had a long history of such behavior. Nursing reports that she, per her baseline, will get territorial or angry when her needs, such as, not wanting to let anyone else sit on the couch she is on or not getting a particular type of drink and will get easily agitated. However, on interview with me she has always known my name. She is pleasant. She generally reports some low level of anxiety, which apparently has been longstanding and baseline and has some history of benzodiazepine abuse. She slept 8 hours last night. She is eating 25% to 175% of meals and last bowel movement was on the 9th. OBJECTIVE: LATEST VITAL SIGNS: Temperature 98.2, heart rate 87, respiratory rate 17, blood pressure 120/54, and oxygen saturation 98%. ASSESSMENT: Unchanged. PLAN: Continue current treatment plan. Continue to monitor for suicidal ideation. Case discussed with nursing, chart review, and patient interviewed. TRANSINT:[id number] Voice Confirmation ID: [id number] DOCUMENT ID: [id number] SIDDHARTHA MCGRAW MD CC: [id number] DICTATION DATE: 08/03/18 1207 INTEL RECRUITER: 08/03/18 1227 ADM IN [place] [address] [place] [address]
[~2018-07-23 16:20] MED LIST changes: +FLORAJEN3 CAPS460 MG PO; +Levaquin PREMIX IV
[2018-07-23] MEDS ORDERED: DEPAKENE250 MG PO (18:10)
[2018-07-23] MEDS ORDERED: DEPAKOTE250 MG PO (18:11)
[2018-07-23] MEDS ORDERED: CYMBALTA30 MG PO (18:13)
[2018-07-23] MEDS ORDERED: FERROUS SULFAT325 MG PO (18:14)
[2018-07-23] MEDS ORDERED: SENNA LAXATIVE8.6 MG PO (18:16)
--- NOTE | 2018-07-23 18:39 | NUR ---
PT WAS ADMITTED FOR SUICIDAL IDEATION WITH A PLAN TO STICK A FORK IN A PLUG IN AND SHOCK SELF TO . CALLED DAMIEN PISANO THE PT'S SISTER WHO IS HER POA FOR CONSENT TO TREAT. DAMIEN GAVE CONSENT FOR TREATMENT AND CODE WORD IS "JOSLYN". PT IS A FULL CODE.
[2018-07-23 19:17] LABS: BASOPHILS 0.3 % (0-2); EOSINOPHILS 1.1 % (0-7); HEMATOCRIT 34.5 % (36.0-48.0); HEMOGLOBIN 11.1 g/dL (12-16); IMMATURE GRANULOCYTES 0.3 % (0-5); LYMPHOCYTES 46.6 % (15-50); MCH 30.5 pg (26.0-34.0); MCHC 32.2 g/dL (31.0-37.0); MCV 94.8 fL (80.0-100.0); MEAN PLATELET VOLUME 9.7 fL (7.4-10.4); MONOCYTES 10.7 % (2-11); PLATELET COUNT 193 10x3/uL (130-400); RBC 3.64 10x6/uL (4.00-5.40); RDW 14.8 % (11.5-14.5); WBC 7.1 10x3/uL (4.8-10.8)
[2018-07-23 19:41] LABS: ALBUMIN 3.2 g/dL (3.4-5.0); ANION GAP 14.9 mmol/L (8-16); BILIRUBIN - TOTAL 0.16 mg/dL (0.2-1.3); CARBON DIOXIDE 27.5 mmol/L (21.0-32.0); CHOL - HDL RATIO 2.7 ratio (2.3-4.1); CREATININE - SERUM 1.9 mg/dL (0.6-1.3); LDL-HDL RATIO 1.4 ratio (1.5-3.5); POTASSIUM - SERUM 4.4 mmol/L (3.5-5.1); PROTEIN - SERUM 6.8 g/dL (6.4-8.2); THYROID STIMULATING HORMONE 1.83 uIU/mL (0.36-3.74); VALPROIC ACID (DEPAKOTE) 58.1 ug/mL (50.0-100.0)
[2018-07-23 21:21] VITALS: BP 140/70
--- NOTE | 2018-07-24 04:17 | NUR ---
B) Patient is alert and oriented to person, place and time, calm and cooperative, no S.I. this shift, denies self harm, I) Administered scheduled medications as ordered, monitored for safety R) Mediation compliant, pleasant and friendly, remembers staff names for her last visit to longterm, P) Continue plan of care.
--- NOTE | 2018-07-24 14:59 | NUR ---
ORIENTED X 3.DENIES THOUGHTS OF HARMING SELF,HAS CONTRACT .WILL TELL STAFF IF THOUGHTS OF SUICIDE RETURN.GAIT VERY UNSTEADY,PROPELLS SELF IN WHEELCHAIR BUT ATTEMPTS TO GET STAFF TO PUSH HER .VERY NEEDY.WILL CONTINUE WITH PLAN OF CARE,MONITOR FOR CHANGES AND SAFETY.
[2018-07-24 15:43] VITALS: BP 107/43
[2018-07-24 19:58] VITALS: BP 84/32
--- NOTE | 2018-07-25 03:55 | NUR ---
B) Patient is alert and oriented to person and place, calm and cooperative with staff, I) Administered schuled medications as ordered, monitored for safety R) Mediation compliant, no suicidal statements this shift, contracts for safety P) Continue plan of care.
[2018-07-25 07:24] LABS: RAPID PLASMA REAGIN Non Reactive (Non Reactive); VITAMIN D 25 HYDROXY 50.3 ng/mL (30.0-100.0)
[2018-07-25 08:10] VITALS: BP 115/47
[2018-07-25 08:16] LABS: FOLATE (FOLIC ACID) - SERUM >20.0 ng/mL (>3.0)
--- NOTE | 2018-07-25 09:59 | NUR ---
PT C/O URGENCY TODAY WITH URINATION BUT NO EVIDENCE OF INCONTIENCE YET. PT WILL BE PUT ON A TOILETING SCHEDULE OF EVERY 2 HOURS TO PREVENT ANY EPISODES. NO AGGRESSION NOTED. PT DENIES ANY SI AND STATED THAT HER DEPRESSION SEEMS TO BE BETTER. ENCOURAGED PT TO CONTINUE TO EXPRESS NEEDS AND FEELINGS TO STAFF. MEDICATIONS GIVEN ORDERED. FALL PRECAUTIONS MAINTAINED. WILL CONTINUE TO MONITOR AND CONTINUE WITH PLAN OF CARE.
--- NOTE | 2018-07-25 12:41 | PSY ---
PATIENT NAME:KOFI AWAD MEDICAL RECORD: [id number] : [birth year] LOCATION:[facility] M[facility] ADMISSION DATE: 07/23/18 ACCOUNT: [id number] PSYCHIATRIC EVALUATION DATE OF EVALUATION: 07/23/18 PSYCHIATRIC EVALUATION IDENTIFYING DATA: The patient is 72 years old and she is known to me from previous clinical contact. CHIEF COMPLAINT: None. HISTORY OF PRESENT ILLNESS: The patient was last hospitalized here in August of 2017. She currently lives in the [facility] and is referred to us because she apparently said she was going to kill herself by sticking a fork into a light socket. She endorses numerous depressive symptoms. She tells me that she is not happy where she is or with her life circumstances, but is very short on details about how or why these things are a problem. PAST MEDICAL HISTORY: None. PAST PSYCHIATRIC HISTORY: Significant for long-standing chronic mental illness. The patient has been hospitalized numerous times and has been in all sorts of residential treatment facilities as well as supervised living settings. She has a history of dementia that is poorly documented and is well above average intelligence, which creates a problem in that she can decline quite a bit before it becomes too noticeable. SOCIAL HISTORY: The patient is from [place]. She attended the [facility] [employer] [facility] and was accepted to [employer], where she went for one year before becoming mentally ill and forced to withdraw. She was 3 times and has had 3 divorces. She has no children, but she does have 2 sisters who are 10 years older than her and have some contact with her. MENTAL STATUS EXAMINATION: The patient is awake; alert; and oriented to person, place, time, and situation. Her mood is flat. Her affect is constricted. Thought processes are circumstantial. Memory, concentration, and abstraction abilities are moderately impaired. She denies that she would actively seek to harm herself or others as well as any overt psychotic symptoms. ASSETS: Stable living environment. LIABILITIES: Limited insight. ALLERGIES: LITHIUM AND PREDNISONE. MEDICATIONS: Please see the admission's MAR. DIAGNOSTIC IMPRESSION: AXIS I: 1. Schizoaffective disorder, bipolar type. 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 AXIS II: None. AXIS III: None. AXIS IV: Moderate. AXIS V: Global assessment of functioning 40. PLAN: At this time, the patient is admitted to the hospital secondary to depressive symptoms associated with a chronic mental illness. She is threatening to kill herself and has a specific and effective plan as to how to do it. She says she will stick a fork or some other metal object into a light socket. TRANSINT:[id number] Voice Confirmation ID: [id number] DOCUMENT ID: [id number] JERALD CHRISTY MD at 1241 CC: [id number] DICTATION DATE: 07/23/181812 DISPERSION MIXER: 07/23/18 185 ADM IN [place] [address] [place] [address]
--- NOTE | 2018-07-25 12:41 | PN ---
PATIENT:KOFI AWAD MEDICAL RECORD: [id number] LOCATION:S[facility]IL Recio ADMISSION DATE: 07/23/18 PROGRESS NOTE DATE OF SERVICE: 07/24/2018 SUBJECTIVE: The patient's case was discussed with staff. She has no new complaint. OBJECTIVE: The patient is in good behavioral control. She has not been aggressive or threatening today. She did say she was going to kill herself by sticking something metal, I think she had said a fork, into the light socket. This did not come up in our conversation today. She is taking Depakote and has a low therapeutic dose. I am going to leave it this way today and will likely have to increase it; but at this point, I am going to leave it as it is. I think that she is a little better and I would like to make as few medication changes as possible since she is brittle or fragile with her disease to begin with and just in general it is best to take as few medicines as low dose as possible obviously; and consistent with those two principles, I am just going to leave the medicines as they are today and will talk with her again tomorrow. TRANSINT:[id number] Voice Confirmation ID: [id number] DOCUMENT ID: [id number] JERALD CHRISTY MD at 1241 CC: [id number] DICTATION DATE: 07/24/18 1616 LIQUOR COMMISSIONER: 07/24/[address] [facility] [address] [place] [address]
[2018-07-25 20:00] VITALS: BP 116/57
--- NOTE | 2018-07-25 21:30 | NUR ---
PATIENT IS CALM AND COOPERATIVE. DENIES ANY SUICIDAL IDEATIONS, COMPLIANT WITH MEDS, NO ADVERSE REACTIONS NOTED. WILL CONTINUE TO MONITOR.
--- NOTE | 2018-07-26 07:30 | NUR ---
REC'D PT IN HALLWAY WITH PEERS. AWAKE ANS ALERT X 3. DENIES SI AT THIS TIME. DENIES ANY THOUGHTS OF SELF HARM. CONTRACT IN PLACE. REDIRECT NEEDED. CALM AND COOPERATIVE WITH ASSESSMENT. PRESCRIBED MEDS PROVIDED. MED COMPLIANT. FALL PRECAUTIONS IN PLACE. WILL CONTINUE TO MONITOR Q 15 MINUTES FOR SAFETY. WILL CPOC.
[2018-07-26 08:26] VITALS: BP 113/60
--- NOTE | 2018-07-26 12:51 | PN ---
PATIENT:KOFI AWAD MEDICAL RECORD: [id number] LOCATION:S[facility]IL Recio ADMISSION DATE: 07/23/18 PROGRESS NOTE DATE OF SERVICE: 07/25/2018 SUBJECTIVE: The patient's case was discussed with staff. She has no new complaint. OBJECTIVE: The patient denies intent to harm herself or others. She is quite delusional and clearly displaying evidence of a great deal of anxiety. ASSESSMENT: No change in diagnoses. PLAN: The patient is going to be given Klonopin at a dose of 0.5 mg twice daily. She will be monitored for clinical changes associated with its use. Her long-term prognosis is guarded. TRANSINT:[id number] Voice Confirmation ID: [id number] DOCUMENT ID: [id number] JERALD CHRISTY MD at 1251 CC: [id number] DICTATION DATE: 07/25/18 1250 LEAD RELAY TESTER: 07/25/18 1450 ADM IN [place] [address] [place] [address]
[2018-07-26 20:00] VITALS: BP 98/65
--- NOTE | 2018-07-26 21:39 | NUR ---
PATIENT IS QUIET AND STAYS TO HERSELF, NOT VERY INTERACTIVE WITH OTHERS, EASILY AGITATED, COMPLIANT WITH MEDS, NO ADVERSE REACTION NOTED. WILL FOLLOW POC
--- NOTE | 2018-07-27 07:30 | NUR ---
REC'D PT IN HALLWAY WITH PEERS. ALERT AND ORIENTED X 3. CALM AND COOPERATIVE WITH ASSESSMENT. REDIRECT NEEDED. NO SI NOTED. PT DENIES ANY SI. PRESCRIBED MEDS PROVIDED. MED COMPLIANT. FALL PRECAUTIONS IN PLACE. WILL CONTINUE TO MONITOR Q 15 MINUTES FOR SAFETY. WILL CPOC.
[2018-07-27 11:11] VITALS: Ht 167.6 cm; Wt 59.3 kg
--- NOTE | 2018-07-27 15:53 | PN ---
PATIENT:KOFI AWAD MEDICAL RECORD: [id number] LOCATION:JonyAIM[facility] Castro[facility]y ADMISSION DATE: 07/23/18 PROGRESS NOTE DATE OF SERVICE: 07/26/2018 SUBJECTIVE: The patient's case was discussed with staff. She has no new complaint. OBJECTIVE: The patient denies intent to harm herself or others. She is generally tolerating her medications well. She has not been aggressive today. ASSESSMENT: No change in diagnoses. PLAN: Brief supportive and educational interventions were made. The patient will be maintained on her current medicines. TRANSINT:[id number] Voice Confirmation ID: [id number] DOCUMENT ID: [id number] JERALD CHRISTY MD at 1553 CC: [id number] DICTATION DATE: 07/26/18 1259 DIRECTOR SCHOOL FOR BLIND: 07/26/18 1801 ADM IN [facility] [address] [place] [address]
[2018-07-27 20:27] VITALS: BP 124/65
--- NOTE | 2018-07-28 02:49 | NUR ---
B) Patientis alert and oriented to person and place, no S.I. this shift, needy and attention seeking at times, I) Administered scheduled medications as ordered, monitored for safety R) Mediation compliant, quiet, and calm most of the time, P) Continue plan of care.
--- NOTE | 2018-07-28 07:30 | NUR ---
REC'D PT IN HALLWAY WITH PEERS. PT CALM AND COOPERATIVE WITH ASSESSMENT. NO SI NOTED. PT DENIES ANY SI. REDIRECT AND REORIENT NEEDED. PRESCRIBED MEDS PROVIDED. MED COMPLIANT. FALL PRECAUTIONS IN PLACE. WILL CONTINUE TO MONITOR Q 15 MINUTES FOR SAFETY. WILL CPOC.
[2018-07-28 08:30] VITALS: BP 110/51
--- NOTE | 2018-07-28 12:55 | NUR ---
Nutrition Follow Up: Chart reviewed Diet: Regular PO Intake: 79% meal avg BM: 07/25/18 Meds and labs reviewed Rec continue current diet. RD following.
--- NOTE | 2018-07-28 15:32 | PN ---
PATIENT:KOFI AWAD MEDICAL RECORD: [id number] LOCATION:JonyAIMEEJb CastroJayy ADMISSION DATE: 07/23/18 PROGRESS NOTE DATE OF SERVICE: 07/27/2018 SUBJECTIVE: The patient's case was discussed with staff. She has no new complaint. OBJECTIVE: The patient tolerates her medicines well. She is oriented fully. She has not been aggressive and has no thoughts of harming herself or others. ASSESSMENT: No change in diagnoses. PLAN: The patient will be maintained on current medicines. Her long-term prognosis is guarded. TRANSINT:[id number] Voice Confirmation ID: [id number] DOCUMENT ID: [id number] JERALD CHRISTY MD at 1532 CC: [id number] DICTATION DATE: 07/27/18 1711 INTERMEDIATE FRAME TENDER: 07/27/18 1830 ADM IN [place] [id number] [place] [address]
[2018-07-28 21:16] VITALS: BP 150/70
--- NOTE | 2018-07-29 02:30 | NUR ---
PATIENT IS ALERT AND ORIENT TO TO SELF AND PLACE. DENIES ANT SUICIDAL THOUGHTS. CALM AND COOPERATIVE WITH STAFF. REDIRECT NEEDED. ADMINISTERED MEDICATIONS. COMPLIANT WITH MEDICATIONS. FALL PRECAUTIONS MAINTAINED. CONTINUE PLAN OF CARE.
--- NOTE | 2018-07-29 07:30 | NUR ---
B) PT IS ALERT AND ORIENTED TO PERSON AND PLACE. DENIES SUICIDAL THOUGHTS. CALM AND COOPERATIVE WITH ASSESSMENT. REDIRECT NEEDED. I) ADMINISTERED MEDICATIONS PRESCRIBED R) MED COMPLIANT P) WILL CPOC
[2018-07-29 08:08] VITALS: BP 137/53
--- NOTE | 2018-07-29 15:23 | PN ---
PATIENT:KOFI AWAD MEDICAL RECORD: [id number] LOCATION:SUSHIL Recio ADMISSION DATE: 07/23/18 PROGRESS NOTE DATE OF SERVICE: 07/28/2018 SUBJECTIVE: The patient's case was discussed with staff. She has no new complaint. OBJECTIVE: The patient is calm and cooperative. She has not been aggressive today. She does have some delusional thought content, but denies that she would seek to harm herself or others. ASSESSMENT: No change in diagnoses. PLAN: The patient's Cymbalta is going to be increased. She will be monitored for clinical changes associated with this. Her long-term prognosis is guarded. TRANSINT:[id number] Voice Confirmation ID: [id number] DOCUMENT ID: [id number] JERALD CHRISTY MD at 1523 CC: [id number] DICTATION DATE: 07/28/18 1622 PARCEL CARRIER: 07/28/184 ADM IN [place] [id number] [place] [address]
[2018-07-29 17:47] LABS: APPEARANCE CLEAR (CLEAR); BILIRUBIN NEGATIVE (NEGATIVE); COLOR STRAW (YELLOW); GLUCOSE NEGATIVE (NEGATIVE); KETONE NEGATIVE (NEGATIVE); NITRITE NEGATIVE (NEGATIVE); PROTEIN NEGATIVE (NEGATIVE); SPECIFIC GRAVITY 1.005 (1.005-1.020); UROBILINOGEN NORMAL (NORMAL)
[2018-07-29 20:22] VITALS: BP 101/51
--- NOTE | 2018-07-30 00:59 | NUR ---
B) Patient is alert and oriented to person, place and time, needy and demanding at times, wants the staff to do things for her that she can do, I) Administered scheduled medications as ordered, monitored for safety, redirected as needed, encouraged independance R) Mediation compliant, follows instructions, P) Continue plan of care.
[2018-07-30 07:36] VITALS: BP 130/55
--- NOTE | 2018-07-30 11:36 | NUR ---
B) The patient is awake and alert, she can get a bit flirtatious with the men, she is pleasant. She has not made any suicidal remarks and she is not displaying any depression. I) Provide prescribed meds. R) The patient is compliant with meds. P) Continue POC.
--- NOTE | 2018-07-30 15:20 | PN ---
PATIENT:KOFI AWAD MEDICAL RECORD: [id number] LOCATION:JonyRafaelRAHAT Castro112 ADMISSION DATE: 07/23/18 PROGRESS NOTE DATE OF SERVICE: 07/29/2018 SUBJECTIVE: The patient's case was discussed with staff. She has no new complaint. OBJECTIVE: The patient is in good behavioral control. She has limited insight about her condition. She has been fairly irritable with the staff, but not in a way that is directly dangerous. I think part of that is the staff is skilled in deescalating her and part of it is she just has not been agitated quite to that level. Nevertheless, I think that this is problematic and I am concerned about her being in a less therapeutic environment and what would likely go wrong. I am going to increase the dose of her Cymbalta slightly. I will continue her on her other medications as they are. TRANSINT:[id number] Voice Confirmation ID: [id number] DOCUMENT ID: [id number] JERALD CHRISTY MD at 1520 CC: [id number] DICTATION DATE: 07/29/18 1559 STONEMASON SUPERVISOR: 07/29/18 [address] [facility] [address] [place] [address]
[2018-07-30 20:47] VITALS: BP 98/46
--- NOTE | 2018-07-30 22:08 | NUR ---
PATIENT FELL WHILE TRYING TO TRANSFER FROM WHEELCHAIR TO BED UNASSISTED, AT 20:00, PHYSICIANT DR GARCIA AND FAMILY DAMIEN PISANO NOTIFIED, NEURO CHECKS STARTED AND STARS REPORT FILLED OUT, WILL CONTINUE TO MONITOR.
--- NOTE | 2018-07-31 05:16 | NUR ---
B) Patient is alert and oriented to person and place, demanding and needy, I) Administered scheduled mediations as ordered, monitored for safety, neuro checks R) Medication compliant, no change in behavior, P) Continue plan of care.
--- NOTE | 2018-07-31 11:32 | PN ---
PATIENT:KOFI AWAD MEDICAL RECORD: [id number] LOCATION:SUSHIL CastroJayy ADMISSION DATE: 07/23/18 PROGRESS NOTE DATE OF SERVICE: 07/30/2018 SUBJECTIVE: The patient's case was discussed with staff. She has no new complaint. OBJECTIVE: The patient is tolerating her medicines well. I have increased her Cymbalta slightly. She is in good behavioral control. ASSESSMENT: No change in diagnoses. PLAN: The patient will be maintained on current medicines, which I have reviewed. I am, however, going to increase the dose of the Depakote to 500 mg twice daily. TRANSINT:[id number] Voice Confirmation ID: [id number] DOCUMENT ID: [id number] JERALD CHRISTY MD at 1132 CC: [id number] DICTATION DATE: 07/30/18 1554 SURVEILLANCE SYSTEM MONITOR: 07/30/18 1821 ADM IN [facility] [address] [place] [address]
[2018-07-31 20:00] VITALS: BP 93/44
--- NOTE | 2018-07-31 22:09 | NUR ---
B) Patient is alert and oriented to person, place and time, calm and cooperative, I) Administered scheduled mediations as ordered, monitored for safety R) Mediation compliant, sleeping now quietly in bed, P) Continue plan of care.
--- NOTE | 2018-08-01 07:30 | NUR ---
REC'D PT IN HALLWAY WITH PEERS. PT IS VERY DEMANDING AT TIMES. CALM AND COOPERATIVE WITH ASSESSMENT. REDIRECT AND REORIENT NEEDED. PRESCRIBED MEDS PROVIDED. MED COMPLIANT. FALL PRECAUTIONS IN PLACE. WILL CONTINUE TO MONITOR Q 15 MINUTES FOR SAFETY. WILL CPOC.
--- NOTE | 2018-08-01 07:57 | NUR ---
REC'D PT IN HALLWAY WITH PEERS. NO SI NOTED OR VOICED. PT DENIES ANY SI. CALM AND COOPERATIVE WITH ASSESSMENT. REDIRECT AND REORIENT NEEDED. PRESCRIBED MEDS PROVIDED. MED COMPLIANT. FALL PRECAUTIONS IN PLACE. WILL CONTINUE TO MONITOR Q 15 MINUTES FOR SAFETY. WILL CPOC.
[2018-08-01 08:26] VITALS: BP 116/64
--- NOTE | 2018-08-01 21:19 | NUR ---
PATIENT IS COOPERATIVE MOST OF THE TIME. LABILE AT TIMES, COMLIANT WITH MEDS. NO ADVERSE REACTION NOTED.
[2018-08-01 22:58] VITALS: BP 109/56
--- NOTE | 2018-08-02 07:14 | NUR ---
REC'D PT IN HALLWAY WITH PEERS. ALERT AND ORIENTED. CALM AND COOPERATIVE WITH ASSESSMENT. PT IS DEMANDING AT TIMES. EASY TO REDIRECT AND REORIENT NEEDED. PRESCRIBED MEDS PROVIDED. MED COMPLIANT. FALL PRECAUTIONS IN PLACE. WILL CONTINUE TO MONITOR Q 15 MINUTES FOR SAFETY. WILL CONTINUE PLAN OF CARE.
[2018-08-02 07:59] VITALS: BP 106/56
[2018-08-02 22:25] VITALS: BP 117/58
--- NOTE | 2018-08-02 22:45 | NUR ---
PATIENT IS QUIET, LABILE AT TIMES, COMPLIANT WITH MEDS, NO ADVERSE REACTION NOTED. REQUIRES LITTLE GUIDANCE. WILL FOLLOW POC
--- NOTE | 2018-08-03 07:30 | NUR ---
REC'D PT IN HALLWAY WITH PEERS. ALERT AND ORIENTED. CALM AND COOPERATIVE WITH ASSESSMENT. PT IS DEMANDING AND NEEDY AT TIMES. REDIRECT AND REORIENT NEEDED. PRESCRIBED MEDS PROVIDED. MED COMPLIANT. FALL PRECAUTIONS IN PLACE. WILL CONTINUE TO MONITOR Q 15 MINUTES FOR SAFETY. WILL CPOC.
[2018-08-03 08:00] VITALS: BP 128/54
[2018-08-03 21:06] VITALS: BP 101/58
--- NOTE | 2018-08-04 01:30 | NUR ---
RECEIVED IN PATIENT ROOM. RESTING IN BED WITH EYES OPEN. CALM AND COOPERATIVE WITH CARE AND ASSESSMENT. DENIES THOUGHTS OF SELF HARM. REDIRECT AND REORIENT NEEDED. RESTING IN BED WITH EYES CLOSED AT THIS TIME. CONTINUE PLAN OF CARE.
[2018-08-04 08:00] VITALS: BP 138/75
--- NOTE | 2018-08-04 11:30 | NUR ---
REC'D PT IN HALLWAY WITH PEERS. AWAKE AND ALERT. PT IS VERY DEMANDING AT TIMES. NO SI NOTED OR VOICED. PT DENIES ANY SI. CALM AND COOPERATIVE WITH ASSESSMENT. REDIRECT NEEDED. PRESCRIBED MEDS PROVIDED. MED COMPLIANT. FALL PRECAUTIONS IN PLACE. WILL CONTINUE TO MONITOR Q 15 MINUTES FOR SAFETY. WILL CPOC.
[2018-08-04 20:00] VITALS: BP 92/36
[2018-08-05 08:23] VITALS: BP 114/72
--- NOTE | 2018-08-05 09:00 | NUR ---
RECEIVED PT IN DINING ROOM FOR B'FAST, ALERT, CALM, NO AGGRESSION NOTED, CONT CONFUSED. MEDS ADMIN PER ORDERS WITH COMPLETE MED COMPLIANCE NOTED. COOPERATIVE WITH GROUP AND STAFF REQUESTS. CONT POC INCLUDING MEDS AND GROUP THERAPY DIRECTED.
--- NOTE | 2018-08-05 10:57 | NUR ---
Nutrition Follow Up: Chart reviewed Diet: Regular PO Intake: 81% meal avg BM: 08/04/18 Meds and labs reviewed Rec continue current diet. RD following.
--- NOTE | 2018-08-05 20:43 | NUR ---
RECEIVED IN PATIENT ROOM. RESTING IN BED WITH EYES OPEN. CALM AND COOPERATIVE WITH CARE AND ASSESSMENT. DENIES THOUGHTS OF SELF HARM. REDIRECT AND REORIENT AT THIS TIME. CONTINUE PLAN OF CARE.
[2018-08-06 00:47] VITALS: BP 100/44
[2018-08-06 07:16] VITALS: BP 115/64
--- NOTE | 2018-08-06 14:39 | NUR ---
IS ORIENTED X 3.THIS AM ANGRY AFFECT OBSERVED,REQUESTED DRINK OF WATER AND WHEN NURSE COULDN'T IMMEDIATELY GET IT FOR HER SHE BECAME VERY AGGITATED.HAS HAD A MUCH MORE RELAXED AFFECT AND BEHAVIOR THIS AFTERNOON.IS COMPLIANT WITH STAFF AND MEDS.DENIES THOUGHTS OF HARMING SELF.WILL CONTINUE WITH PLAN OF CARE,MONITOR FOR CHANGES AND SAFETY.
--- NOTE | 2018-08-06 15:50 | PN ---
PATIENT:KOFI AWAD MEDICAL RECORD: [id number] LOCATION:SUSHIL Recio ADMISSION DATE: 07/23/18 PROGRESS NOTE DATE OF SERVICE: 07/31/2018 SUBJECTIVE: The patient's case was discussed with staff. She has no new complaint. OBJECTIVE: The patient denies intent to harm herself or others. She has a euthymic mood and is tolerating her medicines well. She continues to report anxiety that is not objectively observed. She does have a tremor that is consistent with her longstanding tardive dyskinesia. ASSESSMENT: No change in diagnoses. PLAN: Current medicines will be maintained, a Depakote level will be checked. TRANSINT:[id number] Voice Confirmation ID: [id number] DOCUMENT ID: [id number] JERALD CHRISTY MD at 1550 CC: [id number] DICTATION DATE: 07/31/18 1059 JINGLE WRITER: 07/31/18 1213 ADM IN [place] [address] [place] [address]
--- NOTE | 2018-08-06 15:50 | PN ---
PATIENT:KOFI AWAD MEDICAL RECORD: [id number] LOCATION:JonyAIMEEJb JonyRafaelJayy ADMISSION DATE: 07/23/18 PROGRESS NOTE DATE OF SERVICE: 08/04/2018 SUBJECTIVE: The patient's case was discussed with staff. She has no new complaint. OBJECTIVE: The patient is in good behavioral control with limited insight about her condition. She has been somewhat irritable. She denies any active intent to harm herself or others. She generally is tolerating her medicines well. It does appear that she has a urinary tract infection and is not currently taking an antibiotic for that. Her long-term prognosis is guarded. I am going to start her on Levaquin and we will increase the dose of her Klonopin because of her anxiety. TRANSINT:[id number] Voice Confirmation ID: [id number] DOCUMENT ID: [id number] JERALD CHRISTY MD at 1550 CC: [id number] DICTATION DATE: 08/04/18 1638 WATER/WASTEWATER PROJECT ENGINEER: 08/04/18 1653 ADM IN [place] [id number] [place] [address]
--- NOTE | 2018-08-06 15:50 | PN ---
PATIENT:KOFI AWAD MEDICAL RECORD: [id number] LOCATION:SUSHIL CastroJayy ADMISSION DATE: 07/23/18 PROGRESS NOTE DATE OF SERVICE: 08/05/2018 SUBJECTIVE: The patient's case was discussed with staff. She has no new complaint. OBJECTIVE: The patient is in good behavioral control with poor insight about her condition. She tolerates her medicines well. She is still demanding and has some lability, which has not been escalated, but that nonescalation is probably related to her environment rather than significant improvement in her condition. I am going to keep her on the same medicines for right now. TRANSINT:[id number] Voice Confirmation ID: [id number] DOCUMENT ID: [id number] JERALD CHRISTY MD at 1550 CC: [id number] DICTATION DATE: 08/05/18 1644 FISH HATCHERY ASSISTANT: 08/05/18 1749 ADM IN [facility] [address] [place] [address]
--- NOTE | 2018-08-06 20:13 | NUR ---
RECEIVED IN PATIENT ROOM. SITTING UP IN BED. CALM AND COOPERATIVE WITH CARE AND ASSESSMENT. DENIES THOUGHTS OF SELF HARM. YELLS OUT AT TIMES. REDIRECT AND REORIENT NEEDED. RESTING IN BED WITH EYES OPEN AT THIS TIME. CONTINUE PLAN OF CARE.
[2018-08-06 21:52] VITALS: BP 122/38
[2018-08-07 08:14] VITALS: BP 127/76
--- NOTE | 2018-08-07 13:53 | PN ---
PATIENT:KOFI AWAD MEDICAL RECORD: [id number] LOCATION:SUSHIL CastroJayy ADMISSION DATE: 07/23/18 PROGRESS NOTE DATE OF SERVICE: 08/06/2018 SUBJECTIVE: The patient's case was discussed with staff. She has no new complaint. OBJECTIVE: The patient is in good behavioral control. She is denying any thoughts of harming herself or others. She does not look more depressed, but she says she is. Based on this, I am going to change her antidepressant from Cymbalta to Lexapro. Supportive and educational interventions were made. TRANSINT:[id number] Voice Confirmation ID: [id number] DOCUMENT ID: [id number] JERALD CHRISTY MD at 1353 CC: [id number] DICTATION DATE: 08/06/18 170 LOAN SERVICE OFFICER: 08/06/18 2245 ADM IN [place] [id number] [place] [address]
--- NOTE | 2018-08-07 16:18 | NUR ---
IS ORIENTED X 3.COMPLIANT WITH STAFF AND MEDS.PROPELLS SELF IN WHEELCHAIR,LEGS WEAK AND HAS UNSTEADY GAIT.WILL CONTINUE WITH PLAN OF CARE,MONITOR FOR CHANGES AND SAFETY.CAN BE DEMANDING AT TIMES.
[2018-08-07 20:00] VITALS: BP 109/44
--- NOTE | 2018-08-08 00:20 | NUR ---
PATIENT STAYS TO HERSELF, GETS AGITATED QUICKLY WHEN THINGS DON'T GO HER WAY. COMPLIANT WITH MEDS. WILL FOLLOW POC
[2018-08-08 08:27] VITALS: BP 110/73
--- NOTE | 2018-08-08 10:23 | NUR ---
RECEIVED PATIENT IN DINING ROOM FOR B'FAST, ALERT, CALM, ATTENTION-SEEKING AT TIMES. MEDS ADMIN PER ORDERS WITH COMPLETE MED COMPLIANCE NOTED. NO S/S ADVERSE REACTION NOTED. COOPERATIVE WITH GROUP AND STAFF REQUESTS. CONT POC INCLUDING MEDS AND GROUP THERAPY DIRECTED.
--- NOTE | 2018-08-08 12:17 | PN ---
PATIENT:KOFI AWAD MEDICAL RECORD: [id number] LOCATION:JonyAIMEEJb CastroJayy ADMISSION DATE: 07/23/18 PROGRESS NOTE DATE OF SERVICE: 08/07/2018 SUBJECTIVE: The patient's case was discussed with staff. She has no new complaint. OBJECTIVE: The patient denies intent to harm herself or others. She tolerates her medicines well. ASSESSMENT: No change in diagnoses. PLAN: Brief supportive and educational interventions were made. Long-term prognosis is guarded. I am going to increase the dose of her Lexapro slightly. TRANSINT:[id number] Voice Confirmation ID: [id number] DOCUMENT ID: [id number] JERLAD CHRISTY MD at 1217 CC: [id number] DICTATION DATE: 08/07/18 1604 EXCEPTIONAL CHILDREN'S TEACHER: 08/07/18 2319 ADM IN [place] [id number] [place] [address]
[2018-08-09 01:57] VITALS: BP 119/61
--- NOTE | 2018-08-09 02:49 | NUR ---
B) Patient is alert and oriented to person and place, demanding and attention seeking, I) Administered scheduled medications as ordered, redirected as needed, R) Mediation compliant, P) Continue plan of care.
[2018-08-09 10:03] VITALS: BP 135/48
--- NOTE | 2018-08-09 11:49 | PN ---
PATIENT:KOFI AWAD MEDICAL RECORD: [id number] LOCATION:MARGARITOJb JonyRafaelJayy ADMISSION DATE: 07/23/18 PROGRESS NOTE DATE OF SERVICE: 08/08/2018 SUBJECTIVE: The patient's case was discussed with staff. She has no new complaint. OBJECTIVE: The patient is in good behavioral control. She is tolerating her medicines well. She has a Depakote level of 68 and is showing less mood lability. ASSESSMENT: No change in diagnoses. PLAN: Supportive and educational interventions were made. The patient's long-term prognosis is guarded. TRANSINT:[id number] Voice Confirmation ID: [id number] DOCUMENT ID: [id number] JERALD CHRISTY MD at 1149 CC: [id number] DICTATION DATE: 08/08/18 1414 BUSINESS PROCESS LEAD: 08/08/18 1429 ADM IN [place] [address] [place] [id number]
--- NOTE | 2018-08-09 18:23 | NUR ---
ORIENTED BUT HAS SOME CONFUSION AT TIMES.DEMANDING AND NEEDY AT TIMES.COMPLIANT WITH STAFF AND MEDS.WILL CONTINUE WITH PLAN OF CARE,MONITOR FOR CHANGES AND SAFETY.
--- NOTE | 2018-08-09 22:16 | NUR ---
RECEIVED IN DAY ROOM. LAYING ON COUCH AND READING NEWSPAPER. CALM AND COOPERATIVE WITH CARE AND ASSESSMENT. DENIES THOUGHTS OF SELF HARM. YELLS OUT AT TIMES. PT IS ATTENTION SEEKING AT TIMES. REDIRECT AND REORIENT NEEDED. RESTING IN BED WITH EYES CLOSED AT THIS TIME. CONTINUE PLAN OF CARE.
[2018-08-09 22:53] VITALS: BP 129/45
[2018-08-10 08:00] VITALS: BP 112/51
--- NOTE | 2018-08-10 15:29 | PN ---
PATIENT:KOFI AWAD MEDICAL RECORD: [id number] LOCATION:JonyAIMEEJb CastroJayy ADMISSION DATE: 07/23/18 PROGRESS NOTE DATE OF SERVICE: 08/09/2018 SUBJECTIVE: The patient's case was discussed with staff. She has no new complaint. OBJECTIVE: The patient is in good behavioral control with poor insight about her condition. She is tolerating her medicines well. ASSESSMENT: No change in diagnoses. PLAN: Brief supportive and educational interventions were made. Long-term prognosis is guarded. TRANSINT:[id number] Voice Confirmation ID: [id number] DOCUMENT ID: [id number] JERALD CHRISTY MD at 1529 CC: [id number] DICTATION DATE: 08/09/18 1200 MECHANICAL TECHNOLOGIST: 08/09/18 1223 ADM IN [address] [address]
[2018-08-10] MEDS ORDERED: DEPAKOTE500 MG PO (16:14)
[2018-08-10] MEDS ORDERED: Aricept PO (16:14)
[2018-08-10] MEDS ORDERED: KLONOPIN1 MG PO (16:15)
[2018-08-10] MEDS ORDERED: FLORAJEN3 CAPS460 MG PO (16:15)
[2018-08-10] MEDS ORDERED: LEXAPRO20 MG PO (16:15)
[2018-08-10] MEDS ORDERED: Senokot-S Tablet PO (16:15)
[2018-08-10] MEDS ORDERED: PROTONIX40 MG PO (16:15)
[2018-08-10] MEDS ORDERED: VESICARE5 MG PO (16:16)
[2018-08-10] MEDS ORDERED: VITAMIN D5000 UNIT PO (16:16)
[2018-08-10] MEDS ORDERED: THERAGRAN M [BK1 TAB PO (16:16)
[2018-08-10] MEDS ORDERED: LIDODERM 5 %1 PATCH TRANSDERM (16:16)
--- NOTE | 2018-08-10 18:00 | NUR ---
PT STATED TO STAFF " IM GOING TO PUT A FORK IN ELECTRICAL SOCKET IF I HAVE TO GO BACK TO [facility], I WOULD RATHER THAN GO BACK THERE." STATEMENTS REPORTED TO DR. CHRISTY. WILL CONTINUE TO MONITOR Q 15 MINUTES FOR SAFETY.
[2018-08-10 20:03] VITALS: BP 124/52
--- NOTE | 2018-08-10 21:33 | NUR ---
RECEIVED IN DAYROOM. RESTING ON COUCH WITH EYES OPEN. CALM AND COOPERATIVE WITH CARE AND ASSESSMENT. DENIES THOUGHTS OF SELF HARM. REDIRECT AND REORIENT NEEDED. RESTING IN BED WITH EYES CLOSED AT THIS TIME. CONTINUE PLAN OF CARE.
[2018-08-11 08:00] VITALS: BP 106/57
--- NOTE | 2018-08-11 10:05 | NUR ---
Nutrition Follow Up: Chart reviewed Diet: Regular PO Intake: 68% meal avg BM: 08/10/18 Meds and labs reviewed Rec continue current diet. Will continue to honor food preferences and provide supplements prn. RD following.
--- NOTE | 2018-08-11 12:02 | PN ---
PATIENT:KOFI AWAD MEDICAL RECORD: [id number] LOCATION:SUSHIL Recio ADMISSION DATE: 07/23/18 PROGRESS NOTE DATE OF SERVICE: 08/10/2018 SUBJECTIVE: The patient's case was discussed with staff. She has no new complaint. OBJECTIVE: The patient denies intent to harm herself or others. Her mood is euthymic. She is tolerating her medicines well. ASSESSMENT: No change in diagnoses. PLAN: Current medicines have been reviewed and will be maintained. Her long-term prognosis is guarded. I anticipate she can be transitioned out of the hospital soon. TRANSINT:[id number] Voice Confirmation ID: [id number] DOCUMENT ID: [id number] JERALD CHRISTY MD at 1202 CC: [id number] DICTATION DATE: 08/10/18 1613 CREATIVE ARTS MUSIC THERAPIST: 08/10/18 2113 ADM IN [facility] [address] [place] [id number]
--- NOTE | 2018-08-11 15:00 | NUR ---
RECEIVED IN DAYROOM, LYING ON COUCH MOST OF DAY WITH EYES CLOSED. SHE AWKENS FOR MEALS. SHE IS ALERT TO NAME AND PLACE. DENIES SI. PROVIDE PRESCRIBED MEDS. COMPLIANT WITH TAKING MEDS. FALL PRECAUTIONS MAINTAINED. CONTINUE PLAN CARE.
--- NOTE | 2018-08-11 20:00 | NUR ---
PATIENT D/C'D TO [facility].
--- NOTE | 2018-08-12 15:37 | PN ---
PATIENT:KOFI AWAD MEDICAL RECORD: [id number] LOCATION:JonyAIMEEJb Castro112 ADMISSION DATE: 07/23/18 PROGRESS NOTE DATE OF SERVICE: 08/11/2018 SUBJECTIVE: The patient's case was discussed with staff. She has no new complaint. OBJECTIVE: The patient tells me she is not suicidal. She says she was angry and frustrated about not being able to go to the senior care she wants to go to and says she made these statements because she hoped it would keep her from having to go back to the [facility]. I have explained to her again that there is no choice on this. She is not happy, but she has resolved that it is fine and is willing to accept the placement. ASSESSMENT: No change in diagnoses. PLAN: Current medicines have been reviewed and will be maintained. Long-term prognosis is guarded. She should be transitioned out of the hospital tomorrow. TRANSINT:[id number] Voice Confirmation ID: [id number] DOCUMENT ID: [id number] JERALD CHRISTY MD at 1537 CC: [id number] DICTATION DATE: 08/11/18 1319 SINGE MACHINE OPERATOR: 08/11/18 1415 DIS IN 08/11/18 [facility] [address] [place] [address]
--- NOTE | 2018-08-18 15:21 | DS ---
PATIENT:KOFI AWAD :49 MEDICAL RECORD: [id number] DISCHARGE SUMMARY ADMISSION DATE: 07/23/18 DISCHARGE DATE: 08/11/18 IDENTIFYING DATA: The patient is 72 years old and she was admitted to the hospital on a voluntary basis. CHIEF COMPLAINT: Suicidal thoughts. HISTORY OF PRESENT ILLNESS: The patient is known to me from previous clinical contact. She was previously here about a year ago. The patient lives in a local [facility] and was referred to us because she said she was going to kill herself. She had a specific plan. She was going to stick a metal fork or some other piece of metal into a light socket. She endorsed numerous depressive symptoms and states that she is not happy where she is living or with her life circumstances, but other than this general broad details, she could not give specific examples that could be individually addressed and perhaps resolved. HOSPITAL COURSE: The patient was admitted to the hospital and fully evaluated from both a medical, psychological, and social standpoint. The patient has a new onset of dementia or by new, I mean, within the past couple of years, but in addition to that, she is a known chronically mentally ill person who has been hospitalized many times over several decades and has received extensive inpatient and outpatient treatment because of her mental illness, which is and has been so debilitating that she has been in some kind of fdc care for most of her adult life. The patient was treated with both memory enhancing and mood stabilizing medications and extensive adjustments had to be made before reasonable balance of side effects and beneficial effects could be reached and before the patient had improved enough such that she could reasonably be transitioned back to a long-term care setting. The patient was no longer having thoughts of hurting herself. She did have impairment of her cognitive abilities in the mild to moderate range. The patient is or was far above average intelligence and so it is sometimes difficult to assess the situation since she appears relatively intact unless one talks to her pretty extensively. She is, however, clearly impaired cognitively in a manner consistent with dementia. She also again has the schizoaffective disorder, which is longstanding, but was stabilized pharmacologically. DISCHARGE DIAGNOSES: AXIS I: 1. Schizoaffective disorder, bipolar type. 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 AXIS II: None. AXIS III: None. AXIS IV: Moderate. AXIS V: Global assessment of functioning is 45. PLAN: At the time of discharge, the patient was in good behavioral control and had no active thoughts of harming herself or others. She was tolerating her medications well. Her long-term prognosis is guarded. TRANSINT:[id number] Voice Confirmation ID: [id number] DOCUMENT ID: [id number] DISCHARGE SUMMARY REPORT [id number] KOFI AWAD PETER MD at 1521 CC: [id number] DICTATION DATE: 08/17/18 1419 REPORT MANAGER: 08/18/18 0042 DIS IN 08/11/18 [id number] [place] [address]
== END 2018-08-11 20:00 | DRG 885 ==
LOC: D.PSYCH 16:20
PROVIDERS: ADMIT Psychiatry & Neurology Psychiatry
DX: F25.0 Schizoaffective disorder, bipolar type (principal); F02.81 Dementia in other diseases classified elsewhere, unspecified severity, with behavioral disturbance; R45.851 Suicidal ideations; N39.0 Urinary tract infection, site not specified; G30.1 Alzheimer's disease with late onset; M54.5 Low back pain; E78.5 Hyperlipidemia, unspecified; N18.9 Chronic kidney disease, unspecified; K59.09 Other constipation; K21.9 Gastro-esophageal reflux disease without esophagitis; D50.9 Iron deficiency anemia, unspecified; N32.81 Overactive bladder; G20 Parkinson's disease; F41.9 Anxiety disorder, unspecified; F32.9 Major depressive disorder, single episode, unspecified; E55.9 Vitamin D deficiency, unspecified; H10.32 Unspecified acute conjunctivitis, left eye

== ENCOUNTER 2018-12-27 23:18 | Emergency (ER) | payer MEDICARE ==
[~2018-12-27] VITALS: Ht 167.6 cm; Wt 65.9 kg
[~2018-12-27 23:18] MED LIST changes: +Aricept PO; +CYMBALTA30 MG PO; +DEPAKENE250 MG PO; +DEPAKOTE250 MG PO; +DEPAKOTE500 MG PO; +FERROUS SULFAT325 MG PO; +LEXAPRO20 MG PO; +PROTONIX40 MG PO; +SENNA LAXATIVE8.6 MG PO; +Senokot-S Tablet PO; +VESICARE5 MG PO
[2018-12-27 23:22] VITALS: Ht 167.6 cm; Wt 65.9 kg
[2018-12-27] MEDS ORDERED: ACETAMINOPHEN500 M1 PO (23:24)
[2018-12-27] MEDS ORDERED: EFFEXOR XR150 MG PO (23:25)
[2018-12-27] MEDS ORDERED: KLONOPIN0.5 MG PO (23:26)
[2018-12-27] MEDS ORDERED: OXYBUTYNIN CHLOR5 MG PO (23:27)
[2018-12-28 01:35] VITALS: BP 102/58
== END 2018-12-28 01:36 ==
LOC: D.ER 23:18
DX: S43.402A Unspecified sprain of left shoulder joint, initial encounter (principal); W18.30XA Fall on same level, unspecified, initial encounter; Y93.89 Activity, other specified; Y92.129 Unspecified place in nursing home as the place of occurrence of the external cause; F03.90 Unspecified dementia, unspecified severity, without behavioral disturbance, psychotic disturbance, mood disturbance, and anxiety

== ENCOUNTER 2019-05-20 13:07 | Emergency (ER) | payer MEDICARE ==
[~2019-05-20] VITALS: Ht 167.6 cm; Wt 61.4 kg
[~2019-05-20 13:07] MED LIST changes: +ACETAMINOPHEN500 M1 PO; +EFFEXOR XR150 MG PO; +OXYBUTYNIN CHLOR5 MG PO
[2019-05-20 13:11] VITALS: Ht 167.6 cm; Wt 61.4 kg
[2019-05-20 15:20] VITALS: BP 113/64
== END 2019-05-20 15:32 ==
LOC: D.ER 13:07
DX: M25.512 Pain in left shoulder (principal); W19.XXXA Unspecified fall, initial encounter; Y93.9 Activity, unspecified; Y92.9 Unspecified place or not applicable; G20 Parkinson's disease; F02.80 Dementia in other diseases classified elsewhere, unspecified severity, without behavioral disturbance, psychotic disturbance, mood disturbance, and anxiety; G30.9 Alzheimer's disease, unspecified; Z91.81 History of falling; I10 Essential (primary) hypertension; G62.9 Polyneuropathy, unspecified

== ENCOUNTER 2019-12-24 05:16 | Inpatient (IN) | payer MEDICARE ==
[~2019-12-24] VITALS: Ht 167.6 cm; Wt 71.4 kg
[2019-12-24] VITALS (75 sets, daily range): BP systolic 79–159; BP diastolic 33–98; BMI 22.9
--- NOTE | ~2019-12-24 | OP ---
PATIENT NAME: KOFI AWAD MEDICAL RECORD: [id number] :[birth year] LOCATION:D.[facility] [id number] ADMISSION DATE:12/24/19 SURGEON: IWLMER LAMB MD DATE OF OPERATION: 01/14/2020 PREOPERATIVE DIAGNOSES: 1. Dysphagia. 2. Chronic kidney disease. 3. Schizoaffective disorder. POSTOPERATIVE DIAGNOSES: 1. Dysphagia. 2. Chronic kidney disease. 3. Schizoaffective disorder. PROCEDURE: PEG tube placement. SURGEON: Wilmer Lamb MD REPORT OF PROCEDURE: An Olympus endoscope was advanced through the mouth and esophagus. We insufflated the stomach and found an area of the [place] tube on the antrum. The abdomen was then prepped and draped. A total of 5 mL of 1% lidocaine was infused into the subcutaneous tissues and the skin incision was made with an 11 blade. Angiocath needle was brought through the abdominal wall into the gastric lumen. Through this we passed a wire which was grasped with an Endo snare. These were pulled through the mouth and esophagus and affixed to the PEG tube. We then pulled the wire and the PEG tube through the mouth and esophagus and through the abdominal wall until it rested in good position at 2.5 cm at the skin. We went back down with the endoscope and could see that the tube was in good position with no sign of any bleeding. COMPLICATIONS: None. CONDITION: Stable. ANESTHESIA: TIVA. BLOOD LOSS: Minimal. TRANSINT:[id number] Voice Confirmation ID: [id number] DOCUMENT ID: [id number] WILMER LAMB MD CC: [id number] DICTATION DATE: 01/14/20 113 EDITOR PUBLICATIONS: 01/14/202216 ADM IN [facility] [address] [place] [address]
--- NOTE | 2019-12-24 05:28 | NUR ---
20 MG ETOMIDATE GIVE 100 MG SUCCINYLCHOLINE GIVEN PT INTUBATED AT 0535 WITH 7.5 ET 23 @ LIP
[2019-12-24] MEDS ORDERED: LEXAPRO10 MG PO (05:42)
[2019-12-24] MEDS ORDERED: PROTONIX20 MG PO (05:43)
[2019-12-24] MEDS ORDERED: DONEPEZIL HCL10 MG PO (05:45)
[2019-12-24] MEDS ORDERED: NAMENDA10 MG PO (05:46)
[2019-12-24] MEDS ORDERED: ZYPREXA2.5 MG PO (05:47)
[2019-12-24] MEDS ORDERED: COLACE100 MG PO (05:53)
--- NOTE | 2019-12-24 06:00 | NUR ---
HEMOCULT NEG GASTROCULT SENT TO LAB.
--- NOTE | 2019-12-24 06:15 | NUR ---
bc sent to lab x 1
[2019-12-24 06:22] LABS: CALC OSMOLALITY 330 mosm/kg (275-300); CALCIUM 9.5 mg/dL (8.5-10.1); CHLORIDE - SERUM 115 mmol/L (98-107); CREATININE - SERUM 3.8 mg/dL (0.6-1.3); GLUCOSE 132 mg/dL (74-106); SODIUM 152 mmol/L (136-145); UREA NITROGEN 89 mg/dL (7-18); eGFR NON AFRICAN AMERICAN 12 mL/min (90-120)
[2019-12-24 06:26] LABS: BILIRUBIN NEGATIVE (NEGATIVE); GLUCOSE NEGATIVE (NEGATIVE); KETONE NEGATIVE (NEGATIVE); NITRITE POSITIVE (NEGATIVE); UROBILINOGEN NORMAL (NORMAL)
[2019-12-24 06:27] LABS: WHITE CELLS - URINE >50 /hpf (NEGATIVE)
[2019-12-24 06:29] LABS: HEMATOCRIT 46.4 % (36.0-48.0); HEMOGLOBIN 14.3 g/dL (12-16); MCH 30.9 pg (26.0-34.0); MCHC 30.8 g/dL (31.0-37.0); MCV 100.2 fL (80.0-100.0); MEAN PLATELET VOLUME 10.5 fL (7.4-10.4); PLATELET COUNT 221 10x3/uL (130-400); RBC 4.63 10x6/uL (4.00-5.40); WBC 18.1 10x3/uL (4.8-10.8)
[2019-12-24 06:41] LABS: ALKALINE PHOSPHATASE 91 U/L (30-120); ALT (SGPT) 26 U/L (10-68); CKMB 1.2 U/L (0.0-3.6); CREATINE KINASE 166 UL (21-215); MAGNESIUM - SERUM 3.2 mg/dL (1.8-2.4); PRO BNP 2072 pg/mL (0-125); PROTEIN - SERUM 8.3 g/dL (6.4-8.2); THYROID STIMULATING HORMONE 0.82 uIU/mL (0.36-3.74)
[2019-12-24 06:52] LABS: ALBUMIN 2.8 g/dL (3.4-5.0)
--- NOTE | 2019-12-24 06:54 | NUR ---
io removed from r shoulder after mid line placement
--- NOTE | 2019-12-24 06:54 | NUR ---
see restraint paper work
--- NOTE | 2019-12-24 06:57 | NUR ---
CODE SEPSIS CALLED
[2019-12-24 06:58] LABS: APTT 21.4 SECONDS (22.8-39.4); C-REACTIVE PROTEIN 47.1 mg/dL (0.0-0.9); INR 1.22 (0.85-1.17); PROTIME 15.3 SECONDS (11.6-15.0)
[2019-12-24 07:00] LABS: LYMPHOCYTES 20 % (15-50); MONOCYTES 1 % (2-11); NEUTROPHILS 79 % (40-80); PLATELET ESTIMATE NORMAL
--- NOTE | 2019-12-24 07:09 | NUR ---
awake, biting tube. RT AT BS AND REPORTS PT COUGHING AGAINST TUBE. DIPROVAN INITIATED.
--- NOTE | 2019-12-24 07:16 | NUR ---
PT RINGS REMOVED DUE TO FINGER SWELLING PLACED IN HER PINK SOCKS AND PLACED IN PLASTIC BAG WITH PT MACHINE TENDER BAG.
--- NOTE | 2019-12-24 07:33 | NUR ---
79/38 (54) RESTING NO AGGITATION NOTED. PROPOFOL GTT STOPPED
--- NOTE | 2019-12-24 07:38 | NUR ---
REPORT CALLED TO MARY CHRISTIAN
--- NOTE | 2019-12-24 07:55 | NUR ---
AWAKE, BITING TUBE. BP IMPROVED 117/33 (61) PROPOFOL RESTARTED @ 5 MCG/KG/MIN
--- NOTE | 2019-12-24 07:58 | NUR ---
DR MARQUEZ PAGED AND CALLED BACK. INFORMED OF LOW BP WITH SEDATION, INQUIRED RE: ORDER FOR A PRESSOR. DR MARQUEZ SAYS TAKE HIM TO ICU AND HE WILL MANAGE FROM THERE.
--- NOTE | 2019-12-24 08:15 | NUR ---
TRANSPORTED/ADMIT TO ICU #[id number], CONSITION STABLE WITH RN, RT AND CM
--- NOTE | 2019-12-24 09:15 | NUR ---
pt arrived to the unit with the er staff. pt was placved on icu monitors and positioned for comfort on the vent. will continue to monitor pt.
--- NOTE | 2019-12-24 11:10 | NUR ---
pt repositioned for comfort. reassessment complete. will continue to monitor.
--- NOTE | 2019-12-24 13:17 | NUR ---
pt positioned for comfort will continue to monitor.
--- NOTE | 2019-12-24 14:31 | MORECARE ---
CASE MANAGEMENT DISCHARGE SUMMARY PATIENT: KOFI AWAD UNIT: [id number] ADM DATE: 12/24/19 AGE: 74 : [birth year] SEX: F ROOM/BED: D.[facility] AUTHOR: JESSICA FARAH PHYSICIAN: REFERRING PHYSICIAN: KIRILL PONCE MD DATE OF SERVICE: 12/24/19 Discharge Plan Patient Name: KOFI AWAD Facility: [facility]:[place] : 1945 Planned Disposition: Nursing Facility JESSIE Cert Anticipated Discharge Date: Discharge Date: Expected LOS: Initial Reviewer: [email or web address] Initial Review Date: 12/24/2019 Generated: 12/24/19 3:31 pm DCPIA - Discharge Planning Initial Assessment Updated by [email or web address]: Trena Quintero on 12/24/19 2:29 pm * Is the patient Alert and Oriented? Yes * How many steps to enter\exit or inside your home? * PCP [facility] * Pharmacy [facility] * Preadmission Environment [facility] * Facility Name [facility] * ADLs Partial Dependent * List name and contact numbers for known caregivers / representatives who currently or will assist patient after discharge: JYOTI RAMOS - SISTER -[phone] DAMIEN PISANO - SISTER - [phone], * Verbal permission to speak to the caregivers and representatives has been obtained from the patient. N/A * Additional services required to return to the preadmission environment? No * Can the patient safely return to the preadmission environment? Yes * Has this patient been hospitalized within the prior 30 days at any hospital? No Patient Name: KOFI AWAD Page [id number] at 1431 All edits/amendments must be made on the electronic document DICTATION DATE: 12/24/19 1431 STUDENT DEVELOPMENT SPECIALIST: SAUL 12/24/19 143 RPT#: [id number] DC DATE: STATUS: ADM IN [facility] [address] [place] [address] END OF REPORT
--- NOTE | 2019-12-24 14:40 | MORECARE ---
CASE MANAGEMENT DISCHARGE SUMMARY PATIENT: KOFI AWAD UNIT: [id number] ADM DATE: 12/24/19 AGE: 74 : [birth year] SEX: F ROOM/BED: D.2316 AUTHOR: GAGAN,DOC PHYSICIAN: REFERRING PHYSICIAN: KIRILL PONCE MD DATE OF SERVICE: 12/24/19 Discharge Plan Patient Name: KOFI AWAD Facility: [facility]:[place] : 1945 Planned Disposition: Nursing Facility JESSIE Cert Anticipated Discharge Date: Discharge Date: Expected LOS: Initial Reviewer: [email or web address] Initial Review Date: 12/24/2019 Generated: 12/24/19 3:40 pm Comments DCP- Discharge Planning Updated by [email or web address]: Trena Quintero on 12/24/19 1:[address] Patient Name: KOFI AWAD Admission Status: ER Accout number: [id number] Admission Date: 12-24-2019 : 1945 Admission Diagnosis: Attending: DASIA Current LOS: 1 Anticipated DC Date: Planned Disposition: Nursing Facility [facility] Cert Primary Insurance: MEDICARE A & B Discharge Planning Comments: PATIENT IS A RESIDENT AT [facility] [phone] PLAN IS FOR HER TO RETURN THERE UPON DISCHARGE. CM WILL CONTINUE TO FOLLOW AND ASSIST NEEDED WITH DISCHARGE PLANNING / NEEDS. Raimann Machine Operator: Trena Quintero DCPIA - Discharge Planning Initial Assessment Updated by [email or web address]: Trena Quintero on 12/24/19 2:29 pm * Is the patient Alert and Oriented? Yes * How many steps to enter\exit or inside your home? * PCP [facility] * Pharmacy [facility] * Preadmission Environment [facility] * Facility Name [facility] * ADLs Partial Dependent * List name and contact numbers for known caregivers / representatives who currently or will assist patient after discharge: JYOTI RICHARD - SISTER -[phone] DAMIEN PISANO - SISTER - [phone], * Verbal permission to speak to the caregivers and representatives has been obtained from the patient. N/A * Additional services required to return to the preadmission environment? No * Can the patient safely return to the preadmission environment? Yes * Has this patient been hospitalized within the prior 30 days at any hospital? No Last DP export: 12/24/19 1:32 pm Patient Name: KOFI AWAD Page [id number] at 1440 All edits/amendments must be made on the electronic document DICTATION DATE: 12/24/19 144 LENDING ADVISOR: SAUL 12/24/19 1440 RPT#: [id number] DC DATE: STATUS: ADM IN [facility] [address] [place] [address] END OF REPORT
--- NOTE | 2019-12-24 15:00 | NUR ---
reassessment complete oral care done. pt positioned for comfort will continue to monitor.
[2019-12-24 15:09] LABS: HEMATOCRIT 33.2 % (36.0-48.0); HEMOGLOBIN 10.4 g/dL (12-16)
[2019-12-24 15:28] LABS: ANION GAP 14.4 mmol/L (8-16); CALCIUM 7.9 mg/dL (8.5-10.1); CARBON DIOXIDE 24.4 mmol/L (21.0-32.0); CREATININE - SERUM 3.2 mg/dL (0.6-1.3)
[2019-12-24 15:33] LABS: POTASSIUM - SERUM 3.8 mmol/L (3.5-5.1)
--- NOTE | 2019-12-24 17:32 | NUR ---
pt positioned for comfort will comntinue to monitor.
--- NOTE | 2019-12-24 18:50 | NUR ---
RECIVED REPORT AT BEDSIDE. PT IS INTUABTED/SEDATED BUT HAS EYES OPEN AND FOLLOWS COMMANDS BUT APPEARS TO BE AGITATED AND IS BITTING ETT. WILL INCREASE FENTYLE TO 100MCG/MIN AND WORK ON DECREASING DIPRIVAN PRN SINCE AT 35MCG. VSS. RESTRAINTS ARE OBSERVED BILAT WITH PINK, WARM EXTREMTIES. RUIZ TO GRAVITY WITH YELLOW URINE. THERE IS A IV IN RIGHT FOOT CDI, NO S/S OF INFILTRATION OR ERRTHEMA. PICC TO LEFT UPPER ARM CDI, NO S/S OF INFILTRATION OR ERRTHEMA. IV IN RIGHT NECK CDI, SL. PERFORMED FULL ASSESSMENT AND WILL DOC IN FLOWSHEET. IV FLOWSHEET WILL FILL OUT. BED IS LEFT LOW,SIDE RAILSX2,CALL LIGHT WITHIN REACH. BED ALARM ON. WILL CONITNUE TO MONITOR.
[2019-12-24 20:57] LABS: HEMATOCRIT 34.4 % (36.0-48.0); HEMOGLOBIN 10.7 g/dL (12-16)
--- NOTE | 2019-12-24 21:00 | NUR ---
PT IS RESTING IN BED COMFORTABLE INTUBATED/SEDATED. WILL GO DOWN ON DIPRIVAN PER PROTOCOL IN IV FLOWSHEET. VSS. PROVIDE ORAL CARE AND TUNED TO LEFT SIDE FOR COMFORT AT THIS TIME. BED IS LEFT LOW,SIDE RAISLX2,CALL LIGHT WTIHIN REACH. WILL CONITNUE TO [facility]
--- NOTE | 2019-12-24 23:00 | NUR ---
PT IS GETTING AGITATED AGAIN AND IS BITTING ETT TUBE AGAIN AND IS PULLING AT WRIST RESTRAINTS. WILL INCREASE FENTYLE AT THIS TIME TO HELP CALM HER. WILL DOC IN IV FLOW SHEET. VSS. BED IS LOW,SIDE RAISLX2,CALL LIGHT WITHIN REACH. WILL CONITNUE TO [facility]
--- NOTE | 2019-12-24 23:43 | NUR ---
PT IS MORE CALM AT THIS TIME. SHE IS INTUABTED/SEDATED. VSS. BED IS LOW,SIDE RAISLX2,CALL LIGHT WITHIN REACH. WILL CONTINUE TO MONITOR
[2019-12-25] VITALS (90 sets, daily range): BP systolic 76–134; BP diastolic 34–84; Ht 167.6 cm; Wt 71.4 kg
--- NOTE | 2019-12-25 01:00 | NUR ---
PT IS RESTING IN BED CALM INTUBATED/SEDATED. VSS. PROVIDED ORAL CARE AND TUNRED FOR COMFORT. WILL DECREASE LEVOPHED AND CHART IN IV FLOWSHEET. BED IS LOW,SIDE RAISLX2,CALL LIGHT WITHIN REACH. BED ALARM IS ON
--- NOTE | 2019-12-25 03:00 | NUR ---
PT IS RESTING IN BED CALM INTUBATED/SEDATED. VSS. SLOWLY DECREASEING LEVOPHED, SEE IV FLOWSHEET. ORAL CARE PORVIDED AT THIS TIME. REPOSOTIONED FOR COMFORT. FEET NOW ELEVATED OFF BED. PT TOLERATED WELL. RE-ASSESSMENT DONE AND WILL DOC IN FLOWSHEET. RESTRAINTS OBSERVED WITH CAP REFILL LESS THAN 3 SECONDS, WARM AND PINK BILAT. BED IS LOW,SIDE RIASLX2,CALL LIGHT WITHIN REACH. BED ALARM IS ON.WILL CONINTUE TO MONITOR
--- NOTE | 2019-12-25 04:00 | NUR ---
PT IS INTUABTED/SEDATED CALM. VSS. JUST PROVIDED FULL BED BATH C HCG SOLUTION. CHANGED GOWN AND LINENS AND PROVIDED RUIZ CATHEOTR CARE. ORAL CARE WAS GIVEN. TUNED WITH POSTIONING BLOCKS AND HEELS ARE BRIDGED OFF BED. SCDS REMOVED AND PUT BACK ON. PT TOLERATED WELL. BED WAS LEFT LOW,SIDE RAISLX2,CALL LIGHT WITHIN REACH. BED ALARM ON. WILL CONITNUE TO MONITOR
[2019-12-25 04:47] LABS: BASOPHILS 0.5 % (0-2); EOSINOPHILS 0.2 % (0-7); HEMATOCRIT 33.3 % (36.0-48.0); HEMOGLOBIN 10.1 g/dL (12-16); IMMATURE GRANULOCYTES 5.9 % (0-5); MCH 30.1 pg (26.0-34.0); MCHC 30.3 g/dL (31.0-37.0); MCV 99.1 fL (80.0-100.0); MEAN PLATELET VOLUME 9.7 fL (7.4-10.4); MONOCYTES 10.2 % (2-11); NEUTROPHILS 69.2 % (40-80); RDW 14.1 % (11.5-14.5); WBC 17.9 10x3/uL (4.8-10.8)
[2019-12-25 04:51] LABS: PLATELET COUNT 127 10x3/uL (130-400); RBC 3.36 10x6/uL (4.00-5.40)
[2019-12-25 05:06] LABS: ANION GAP 12.1 mmol/L (8-16); BILIRUBIN - TOTAL 0.25 mg/dL (0.2-1.3); CALCIUM 7.6 mg/dL (8.5-10.1); CARBON DIOXIDE 25.3 mmol/L (21.0-32.0); CREATININE - SERUM 3.1 mg/dL (0.6-1.3); POTASSIUM - SERUM 3.4 mmol/L (3.5-5.1)
[2019-12-25 05:07] LABS: ALBUMIN 1.7 g/dL (3.4-5.0); PROTEIN - SERUM 5.5 g/dL (6.4-8.2)
--- NOTE | 2019-12-25 06:00 | NUR ---
PT IS RESTING IN BED CALM INTUBATED/SEDATED. VSS. ORAL CARE AND REPOSITIONED AT THIS TIME. BED IS LOW,SIDE RAISLX2,CALL LIGHT WITHIN REACH. WILL CONTINUE TO MONITOR
--- NOTE | 2019-12-25 07:00 | NUR ---
BEDSIDE REPORT RECEIVED. SHIFT ASSESSMENT COMPLETED PER FLOWSHEET, SEE FLOWSHEET FOR INFORMATION. PT INTUBATED AND SEDATED. UPON ENTERING ROOM, NOTED THE SOUND OF A CUFF LEAK. NBA FINE NOTIFED. VSS. WILL CONT TO MONITOR.
--- NOTE | 2019-12-25 08:40 | NUR ---
PT EXTUBATED BY NBA HERNANDEZ. PT NOT RESPONDING TO STIMULI, AND AND BEDSIDE. PT PLACED ON BIPAP 50%. WILL CONT TO MONITOR.
--- NOTE | 2019-12-25 09:00 | NUR ---
PT NOT TOLERATING BIPAP AT 100% WITH O2 SATURATION OF 30%. AT BEDSIDE. WILL CONT TO MONITOR.
--- NOTE | 2019-12-25 09:30 | NUR ---
CPR STARTED. PT REINTUBATED WITH SIZE 7, 23 AT THE LIP ON 100% OXYGEN. AT BEDSIDE.
--- NOTE | 2019-12-25 09:40 | NUR ---
AT BESIDE. ORDERS NBA TO ADVANCE ETT 2CM TO 25. ANOTHER CXR TAKEN, NOTIFED. DR. SCHNEIDER AKNOWLEDGED ETT PLACEMENT, NO NEW ORDERS. WILL CONT TO MONITOR.
--- NOTE | 2019-12-25 11:00 | NUR ---
REASSESSMENT COMPLETED PER FLOWSHEET, SEE FLOWSHEET FOR INFORMATION. PT INTUBATED AND SEDATED AT THIS TIME. VSS. WILL CONT TO MONITOR.
--- NOTE | 2019-12-25 12:54 | NUR ---
TEMPERATURE OF 102.3 DEGREES FAHTRENHEIT. TYLENOL GIVEN RECTALLY. NOTIFED. WILL CONT TO MONITOR.
--- NOTE | 2019-12-25 19:00 | NUR ---
PT IS RESTING IN BED CALM INTUABTED/SEDATED. OPENS EYES SPONTANOUSLY AND FOLLOWS COMMANDS. VSS. RESTRAINTS OBSERVED WITH PINK AND WARM EXTREMITES BILAT. RUIZ CATHETOR TO GRAVITY AND DRAINING. PERFORMED FULL ASSESSMENT AND WILL DOC IN FLOW SHEET. IV MEDS DOC IN IV FLOWSHEET. PERFORMED ORAL CARE AND TURNED TO RIGHT SIDE AT THIS TIME. ARMS ARE ON PILLOWS. HEELS BRIDGED OFF BED. BED IS LOW,SIDE RAISLX2,CALL LIGHT WITHIN REACH. WILL CONINTUE TO MONITOR
--- NOTE | 2019-12-25 21:02 | NUR ---
PT IS RESTING IN BED CALM INTUBATED/SEDATED. VSS. INSERTED NGT INTO LEFT NARE SUCCESSFULLY AT THIS TIME. SECURED TO NOSE LEFT CLAMP UNTILL CONFIRMED PLACEMENT. PT TOLERATED WELL. BED WAS LEFT LOW,SIDE RAISLX2,CALL LIGHT WITHIN REACH. WILL CONTINUE TO MONITOR
--- NOTE | 2019-12-25 21:45 | NUR ---
X-RAY HERE AT THIS TIME TO CHECK NGT PLACEMENT. IT IS COILED ON ITSELF, SO D/C AT THIS TIME. WILL CALL TO INFORM
--- NOTE | 2019-12-25 22:20 | NUR ---
TALKED TO ABOUT NGT PLACEMENT THAT WAS NOT IN PLACE. HE VOICED"THAT IS OK JUST HOLD TO PUT ONE IN TILL TOMORROW". T.O TO HOLD PO MEDS AT THIS TIME. T.O READ BACK CORRECT
--- NOTE | 2019-12-25 23:00 | NUR ---
PT IS CALM INTUBATED/SEDATED, VSS. RE-ASSESSMENT DONE AND WILL CHART IN FLOWSHEET. ORAL CARE PORIVDED AND TURNED FOR COMFORT. RESTRAINTS OBSERVED. BED LOW,SIDE RAILSX2,CALL LIGHT WITHIN REACH.
[2019-12-26] VITALS (24 sets, daily range): BP systolic 102–125; BP diastolic 41–85
--- NOTE | 2019-12-26 01:00 | NUR ---
PT IS RESTING IN BED CALM INTUBATED/SEDATED. VSS. ORAL CARE PROVIDE AND TURNED FOR COMFORT. ARMS ARE ELVATED ON PILLOW. RESTRAINTS OBSERVED. HEELS ARE BRIDGED OFF BED. NOW OFF LEVOPHED FOR 2 HOURS WITH BP'S WITHIN WANTED RANGE. BED IS LOW,SIDE RAISLX2,CALL LIGHT WITHIN REACH.BED ALARM ON. WILL CONTINUE TO MONITOR
--- NOTE | 2019-12-26 03:00 | NUR ---
PT IS RESTING CALM INTUABTED/SEDATED. VSS. RE-ASSESSMENT DONE AT THIS TIME. REPOSITIONED FOR COMFORT. ORAL CARE PROVIDED. PT TOLERATED WELL. BED IS LEFT LOW,SIDE RAISLX2,CALL LIGHT WITHIN REACH. WILL CONTINUE TO MONITOR
--- NOTE | 2019-12-26 05:00 | NUR ---
PT IS RESTING CALM INTUABTED/SEDATED.VSS.RESTRAINTSOBSERVED. ORAL CARE PROVIDED, TURNED FOR COMFORT. ARMS ARE ELVATED ON PILLOWS. I/O'S DONE. BED IS LEFT LOW,SIDE RAISLX2,CALL LIGHT WITHIN REACH. WILL CONTINEUT TO MONITOR
--- NOTE | 2019-12-26 06:30 | NUR ---
PT IS RESTING IN BED CALM INTUABTED/SEDATED. VSS. BED IS LOW,SIDE RAISLX2,CALL LIGHT WITHIN REACH.
--- NOTE | 2019-12-26 08:44 | NUR ---
LYING IN BED ON VENT AT THIS TIME. VSS. NO ACUTE DISTRESS NOTED. PT TURNED Q2H. ORAL CARE PROVIDED Q2H. WILL CONTINUE PLAN OF CARE.
[2019-12-26 08:56] LABS: BASOPHILS 0.2 % (0-2); EOSINOPHILS 1.8 % (0-7); HEMOGLOBIN 10.2 g/dL (12-16); IMMATURE GRANULOCYTES 2.5 % (0-5); MCH 30.5 pg (26.0-34.0); MCHC 31.9 g/dL (31.0-37.0); MEAN PLATELET VOLUME 10.9 fL (7.4-10.4); MONOCYTES 5.5 % (2-11); RBC 3.34 10x6/uL (4.00-5.40); RDW 14.1 % (11.5-14.5); WBC 14.8 10x3/uL (4.8-10.8)
[2019-12-26 08:57] LABS: MCV 95.8 fL (80.0-100.0); PLATELET COUNT 100 10x3/uL (130-400)
[2019-12-26 09:05] LABS: HEMATOCRIT 29.7 % (36.0-48.0); HEMOGLOBIN 9.8 g/dL (12-16)
[2019-12-26 09:22] LABS: ALBUMIN 1.7 g/dL (3.4-5.0); BILIRUBIN - TOTAL 0.39 mg/dL (0.2-1.3); CALCIUM 7.7 mg/dL (8.5-10.1); CARBON DIOXIDE 19.4 mmol/L (21.0-32.0); CREATININE - SERUM 2.5 mg/dL (0.6-1.3); PROTEIN - SERUM 5.6 g/dL (6.4-8.2)
[2019-12-26 09:23] LABS: ANION GAP 15.6 mmol/L (8-16)
--- NOTE | 2019-12-26 09:34 | NUR ---
DR PONCE HERE TO SEE PT. NOTIFIED OF CHLORIDE LEVEL OF 116 AND POTASSIUM LEVEL OF 3.0. ELECTROLYTE PROTOCOL ORDERED. ALSO CHANGE PROTONOIX ORDER FROM CONTINUOUS GTT TO 40 DAILY. H&H ORDERS CHANGED FROM SERIAL TO Q12H X 2 AND THEN TO DAILY SINCE STABLE H&H. VSS. WILL CONTINUE PLAN OF CARE.
--- NOTE | 2019-12-26 09:38 | NUR ---
PER DR SCHNEIDER, ALLOW PT TO REST TODAY ON SEDATION. STATING "WE WILL NOT WAKE HER TODAY."
--- NOTE | 2019-12-26 10:45 | NUR ---
PER DR SCHNEIDER, NGT PLACED TO RT NARE. 16 MOROCCAN. AUSCULTATED FOR PLACEMENT. ALSO WAITING FOR XRAY RESULTS TO VERIFY PLACMENET.
--- NOTE | 2019-12-26 12:00 | NUR ---
PER DR SCHNEIDER START NGT FLUSH 100ML Q4H. STARTED AT THIS TIME. VSS. NO ACUTE DISTRESS NOTED. WILL CONTINUE PLAN OF CARE.
--- NOTE | 2019-12-26 14:43 | NUR ---
NO ACUTE DISTRESS NOTED. NO CHANGE. VSS. TURNED Q2H, ORAL CARE PROVIDED Q2H. WILL CONTINUE PLAN OF CARE.
--- NOTE | 2019-12-26 16:44 | NUR ---
SPOKE WITH PTS FAMILY AT THIS TIME AFTER CALL IN CODE VERIFIED. UPDATES PROVIDED. VSS. WILL CONTINUE PLAN OF CARE.
--- NOTE | 2019-12-26 18:26 | NUR ---
NO ACUTE DISTRESS NOTED. NO CHANGE. VSS. TURNED Q2H. ORAL CARE PROVIDED Q2H. WILL CONTINUE PLAN OF CARE.
[2019-12-26 20:30] LABS: HEMATOCRIT 35.3 % (36.0-48.0); HEMOGLOBIN 10.8 g/dL (12-16)
[2019-12-27] VITALS (24 sets, daily range): BP systolic 93–129; BP diastolic 36–78
--- NOTE | 2019-12-27 07:30 | NUR ---
REPORT RECIEVED, SHIFT ASSESSMENT COMPLETE, PT IS SEDATED ON VENT, AROUSES TO PAIN, ON 50% FIO2 WITH 100% O2 SAT. ALL PPP, VSS, CALL LIGHT IN REACH
--- NOTE | 2019-12-27 09:30 | NUR ---
DR. LLOYD AT BEDSIDE, UPDATE GIVEN
[2019-12-27 09:43] LABS: HEMATOCRIT 33.6 % (36.0-48.0); HEMOGLOBIN 10.3 g/dL (12-16)
--- NOTE | 2019-12-27 10:20 | NUR ---
COMPLETE BATH AND LINEN CHANGE, PT TOLERATED WELL
--- NOTE | 2019-12-27 11:14 | NUR ---
Nutrition follow-up: Intubated, sedated; cpap trials today Pulmocare @ 20 ml/hr via NGT Labs reviewed Wt: 153# RDN following.
--- NOTE | 2019-12-27 12:00 | NUR ---
DR. HERNÁNDEZ AT BEDSIDE, UPDATE GIVEN
--- NOTE | 2019-12-27 14:49 | NUR ---
TANNER CORONADO AT BEDSIDE, UPDATE GIVEN
--- NOTE | 2019-12-27 15:03 | NUR ---
REASSESSMENT COMPLETE, NO CHANGES NOTED, PT RESTING AT THIS TIME, VSS, WILL CON'T TO MONITOR
[2019-12-28] VITALS (22 sets, daily range): BP systolic 102–126; BP diastolic 51–99
--- NOTE | 2019-12-28 02:16 | NUR ---
PATIENT MOVED FROM ROOM 2316 TO ROOM 2307. PATIENT TOLERATED MOVE WELL.
--- NOTE | 2019-12-28 07:10 | NUR ---
REPORT RECEIVED. ASSESSMENT COMPLETE PER FLOW SHEET. REFER FOR COMPLETE FINDINGS. VSS. PT RESTING COMFORTABLY ORAL ENDOTRACH CARE ADM. WILL CONTINUE TO MONITOR
--- NOTE | 2019-12-28 09:19 | NUR ---
PT REPOSITIONED. ORAL ENDOTRACH CARE ADM. NO NEW CHANGES WILL CONTINUE TO MONITOR
[2019-12-28 10:04] LABS: HEMATOCRIT 29.2 % (36.0-48.0); MCH 29.9 pg (26.0-34.0); MCHC 30.8 g/dL (31.0-37.0); MEAN PLATELET VOLUME 11.1 fL (7.4-10.4); PLATELET COUNT 191 10x3/uL (130-400); RBC 3.01 10x6/uL (4.00-5.40); WBC 22.3 10x3/uL (4.8-10.8)
[2019-12-28 10:12] LABS: ALBUMIN 1.6 g/dL (3.4-5.0); ANION GAP 13.4 mmol/L (8-16); BILIRUBIN - TOTAL 0.26 mg/dL (0.2-1.3); CALCIUM 7.9 mg/dL (8.5-10.1); CARBON DIOXIDE 22.1 mmol/L (21.0-32.0); CREATININE - SERUM 1.7 mg/dL (0.6-1.3); MAGNESIUM - SERUM 1.9 mg/dL (1.8-2.4); PHOSPHOROUS 3.1 mg/dL (2.5-4.9); POTASSIUM - SERUM 3.5 mmol/L (3.5-5.1); PROTEIN - SERUM 5.6 g/dL (6.4-8.2)
--- NOTE | 2019-12-28 11:15 | NUR ---
REASSESSMENT COMPLETE PER FLOW SHEET. VSS. NO NEW FINDINGS. PT RESTING COMFORTABLY WILL CONTINUE TO MONITOR
[2019-12-28 12:10] LABS: LYMPHOCYTES 5 % (15-50); MONOCYTES 8 % (2-11); NEUTROPHILS 85 % (40-80); PLATELET ESTIMATE NORMAL; ROULEAUX OCC
--- NOTE | 2019-12-28 13:22 | NUR ---
COMPLETE BATH AND LINEN CHANGE, PT TOLERATED WELL
--- NOTE | 2019-12-28 15:15 | NUR ---
REASSESSMENT COMPLETE, FAILED CPAP TRIALS AT THIS TIME,
--- NOTE | 2019-12-28 15:50 | NUR ---
1520 trials on ps 10 with peep of 5 rr increasing to 36-40 after approx 7 minutes of trials vt 211 ve 14.5 changed settings back to ac as ordered no sob noted on departure with spo2 98
--- NOTE | 2019-12-28 17:00 | NUR ---
REPOSITIONED FOR COMFORT, ORAL CARE PROVIDED,
--- NOTE | 2019-12-28 19:20 | NUR ---
SHIFT ASSESSMENT COMPLETE. NO DISTRESS NOTED AT THIS TIME. WILL CONTINUE TO MONITOR.
--- NOTE | 2019-12-28 21:00 | NUR ---
NO CHANGES IN PT. ORAL CARE DONE AND SUCTIONED NOSE WITH LARGE AMOUNT OF THICK SECRETIONS NOTED.
--- NOTE | 2019-12-28 23:00 | NUR ---
REASSESSMENT COMPLETE. NO CHANGES IN PATIENT.
[2019-12-29] VITALS (24 sets, daily range): BP systolic 99–125; BP diastolic 46–92
--- NOTE | 2019-12-29 01:00 | NUR ---
PATIENT REPOSITIONED FOR COMFORT. NO CHANGES NOTED IN CONDITION.
--- NOTE | 2019-12-29 03:00 | NUR ---
REASSESSMENT COMPLETE. NO CHANGES IN CONDITION. PATIENT ETT MOVED AND SUCTION.
[2019-12-29 03:43] LABS: BASOPHILS 0.1 % (0-2); HEMATOCRIT 26.9 % (36.0-48.0); HEMOGLOBIN 8.4 g/dL (12-16); IMMATURE GRANULOCYTES 1.4 % (0-5); MCH 30.2 pg (26.0-34.0); MCHC 31.2 g/dL (31.0-37.0); MCV 96.8 fL (80.0-100.0); MEAN PLATELET VOLUME 11.2 fL (7.4-10.4); MONOCYTES 8.1 % (2-11); NEUTROPHILS 79.4 % (40-80); RBC 2.78 10x6/uL (4.00-5.40); RDW 13.8 % (11.5-14.5); WBC 18.5 10x3/uL (4.8-10.8)
[2019-12-29 03:44] LABS: PLATELET COUNT 230 10x3/uL (130-400)
[2019-12-29 04:01] LABS: ALBUMIN 1.6 g/dL (3.4-5.0); ANION GAP 11.4 mmol/L (8-16); BILIRUBIN - TOTAL 0.2 mg/dL (0.2-1.3); CALCIUM 7.7 mg/dL (8.5-10.1); CARBON DIOXIDE 24.4 mmol/L (21.0-32.0); CREATININE - SERUM 1.6 mg/dL (0.6-1.3); POTASSIUM - SERUM 3.8 mmol/L (3.5-5.1); PROTEIN - SERUM 4.9 g/dL (6.4-8.2)
--- NOTE | 2019-12-29 05:00 | NUR ---
REPOSITIONED NO CHANGES IN CONDITION. WILL CONTINUE TO MONITOR.
--- NOTE | 2019-12-29 07:30 | NUR ---
REPORT RECIEVED, SHIFT ASSESSMENT COMPLETE, PT IS SEDATED ON VENT, RESPONDS TO PAINFUL STIMULI, ON 40% FIO2 WITH 97% O2 SAT. ALL PPP, VSS, WILL CON'T TO MONITOR
--- NOTE | 2019-12-29 09:27 | NUR ---
REPOSITIONED FOR COMFORT, ORAL CARE PROVIDED
--- NOTE | 2019-12-29 11:09 | NUR ---
Nutrition follow-up: Pt remains intubated CPAP trials again today Pulmocare @ 20 ml/hr Labs reviewed Will need TF increased to goal rate of 45 ml/hr if pt unable to extubated within 24 hours RDN following.
--- NOTE | 2019-12-29 11:15 | NUR ---
REASSESSMETN COMPLETE, NO CHANGES NOTED, WILL CON'T TO MONITOR
--- NOTE | 2019-12-29 13:00 | NUR ---
REPOSITIONED FOR COMFORT, ORAL CARE PROVIDED
--- NOTE | 2019-12-29 15:15 | NUR ---
REASSESSMENT COMPLETE, NO CHANGES NOTED, WILL CON'T TO MONITOR
[2019-12-30] VITALS (23 sets, daily range): BP systolic 94–134; BP diastolic 44–92
[2019-12-30 04:06] LABS: BASOPHILS 0.2 % (0-2); EOSINOPHILS 2.7 % (0-7); HEMATOCRIT 24.4 % (36.0-48.0); HEMOGLOBIN 7.6 g/dL (12-16); IMMATURE GRANULOCYTES 1.9 % (0-5); LYMPHOCYTES 12.6 % (15-50); MCH 30.3 pg (26.0-34.0); MCHC 31.1 g/dL (31.0-37.0); MCV 97.2 fL (80.0-100.0); MEAN PLATELET VOLUME 10.5 fL (7.4-10.4); NEUTROPHILS 73.6 % (40-80); PLATELET COUNT 260 10x3/uL (130-400); RBC 2.51 10x6/uL (4.00-5.40); RDW 13.8 % (11.5-14.5)
[2019-12-30 04:14] LABS: WBC 12.4 10x3/uL (4.8-10.8)
[2019-12-30 04:20] LABS: % SATURATION 15 % (15-55); IRON 17 ug/dl (35-150); TOTAL IRON BIND CAPACITY 112 ug/dl (260-445); UNSAT IRON BIND CAPACITY 95 ug/dl (150-375)
[2019-12-30 04:40] LABS: ALBUMIN 1.4 g/dL (3.4-5.0); ANION GAP 12.1 mmol/L (8-16); BILIRUBIN - TOTAL 0.19 mg/dL (0.2-1.3); CALCIUM 7.7 mg/dL (8.5-10.1); CARBON DIOXIDE 24.9 mmol/L (21.0-32.0); CREATININE - SERUM 1.5 mg/dL (0.6-1.3); MAGNESIUM - SERUM 1.9 mg/dL (1.8-2.4); PROTEIN - SERUM 4.6 g/dL (6.4-8.2)
[2019-12-30 04:54] LABS: PHOSPHOROUS 4.5 mg/dL (2.5-4.9)
--- NOTE | 2019-12-30 07:25 | NUR ---
REPORT RECIEVED, SHIFT ASSESSMENT COMPLETE, PT IS SEDATED ON VENT, ON 40% FIO2 WITH 99% O2 SAT. ALL PPP, VSS, WILL CON'T TO MONITOR
--- NOTE | 2019-12-30 08:20 | NUR ---
CHANGED PT TO CPAP 03/27
--- NOTE | 2019-12-30 08:33 | NUR ---
SWITCHED PT TO A/C PREVIOUS SETTINGS. PT RR UP TO 50 WITH TIDAL VOL OF 170 ON CPAP. PT DIDNT ENDY CPAP.
--- NOTE | 2019-12-30 09:01 | NUR ---
REPOSITIONED FOR COMFORT, ORAL CARE PROVIDED
--- NOTE | 2019-12-30 11:30 | NUR ---
DR. LLOYD AT BEDSIDE, UPDATE GIVEN
--- NOTE | 2019-12-30 12:44 | NUR ---
TALKED TO SISTER DAMIEN PISANO, CONSENT OBTAINED FOR BRONCHOSCOPY TODAY
--- NOTE | 2019-12-30 17:15 | NUR ---
REPOSITIONED FOR COMFORT, ORAL CARE PROVIDED,
[2019-12-31] VITALS (24 sets, daily range): BP systolic 90–130; BP diastolic 37–75
[2019-12-31 06:32] LABS: BASOPHILS 0.2 % (0-2); EOSINOPHILS 2.4 % (0-7); HEMATOCRIT 26.4 % (36.0-48.0); HEMOGLOBIN 8.3 g/dL (12-16); LYMPHOCYTES 13.3 % (15-50); MCH 30.2 pg (26.0-34.0); MCHC 31.4 g/dL (31.0-37.0); MEAN PLATELET VOLUME 10.4 fL (7.4-10.4); MONOCYTES 8.2 % (2-11); NEUTROPHILS 73.9 % (40-80); PLATELET COUNT 377 10x3/uL (130-400); RBC 2.75 10x6/uL (4.00-5.40); RDW 13.6 % (11.5-14.5); WBC 12.8 10x3/uL (4.8-10.8)
[2019-12-31 06:50] LABS: ALBUMIN 1.6 g/dL (3.4-5.0); ANION GAP 13.5 mmol/L (8-16); BILIRUBIN - TOTAL 0.17 mg/dL (0.2-1.3); CALCIUM 8.4 mg/dL (8.5-10.1); CARBON DIOXIDE 23.4 mmol/L (21.0-32.0); CREATININE - SERUM 1.3 mg/dL (0.6-1.3); POTASSIUM - SERUM 3.9 mmol/L (3.5-5.1); PROTEIN - SERUM 5.3 g/dL (6.4-8.2)
--- NOTE | 2019-12-31 07:00 | NUR ---
REPORT RECEVIED FROM THE OFF GOING RN. SEE ASSESSMENT IN THE PTS FLOW SHEET. PT SEDATED ON THE VENT. TF BAG CHANGED AND DATED. NO RESIDUAL IN NGT. VSS AT THIS TIME. CALL LIGHT IN REACH. WILL CONT POC.
--- NOTE | 2019-12-31 09:00 | NUR ---
PT VSS. PT REPOSTIONED. CALL LIGHT IN REACH. WILL CONT POC.
--- NOTE | 2019-12-31 10:51 | NUR ---
Nutrition follow-up: Pt for bronch today Pulmocare @ 20 ml/hr No BM Labs reviewed Recommend adding a motility agent due to no BM When pt with BM, recommend increasing TF to goal rate of 45 ml/hr RDN following.
--- NOTE | 2019-12-31 11:00 | NUR ---
REASSESSMENT COMPLETED. SEE FLOW SHEET. CALL LIGHT IN REACH. WILL CONT POC.
--- NOTE | 2019-12-31 15:14 | NUR ---
1430: STARTED CPAP TRAIL 03/27 30% 1513: PATIENTS HEART RATE AND RHYTHM BECAME UNSTABLE AT 175BPM SWITCHED PATIENT BACK TO ASSIST CONTROL
--- NOTE | 2019-12-31 15:23 | NUR ---
PT ON CPAP MODE FOR ABOUT 40 MINUTES BEFORE SHE WENT IN TO AFIB RATE OF 120-150. RT CHANGE BACK TO AC MODE. PT SELF CONVERTED TO A NSR RATE 70'S. DR LLOYD NOTIFIED. NO N.O.
[2019-12-31 18:30] LABS: ACID FAST SMEAR Negative (()); AFB SPECIMEN PROCESSING Concentration (()); FUNGUS STAIN Final report (())
[2020-01-01] VITALS (23 sets, daily range): BP systolic 91–140; BP diastolic 48–89
[2020-01-01 09:08] LABS: HEMATOCRIT 26.5 % (36.0-48.0); HEMOGLOBIN 8.5 g/dL (12-16); LYMPHOCYTES 16.2 % (15-50); MCHC 32.1 g/dL (31.0-37.0); MCV 96.7 fL (80.0-100.0); MEAN PLATELET VOLUME 9.8 fL (7.4-10.4); NEUTROPHILS 75.2 % (40-80); PLATELET COUNT 379 10x3/uL (130-400); RBC 2.74 10x6/uL (4.00-5.40); RDW 13.1 % (11.5-14.5); WBC 11.1 10x3/uL (4.8-10.8)
[2020-01-01 09:22] LABS: ALBUMIN 1.6 g/dL (3.4-5.0); ANION GAP 12.6 mmol/L (8-16); BILIRUBIN - TOTAL 0.15 mg/dL (0.2-1.3); CALCIUM 8.5 mg/dL (8.5-10.1); CARBON DIOXIDE 26.4 mmol/L (21.0-32.0); CREATININE - SERUM 1.4 mg/dL (0.6-1.3); PROTEIN - SERUM 5.3 g/dL (6.4-8.2)
--- NOTE | 2020-01-01 14:34 | NUR ---
0700 REPORT RECIEVED AND CARE ASSU,ED OF PATIENT.. SEE FLOW SHEET FOR SHIFT ASSESMENT FINDINGS.. ISOLATION FOR MRSA 0800 PT IS WITHOUT CHANGES.. ORAL CARE DONE AND RPOSITIONED.. 0900 NEW BAG TUBE FEEDING HUNG 0930 DR HERNÁNDEZ IN TO SEE PATIENT UPDATE IS GIVEN.. 1030 CHG BATH WITH LINEN CHANGE , DRESSING CHANGE DONE.. 1100 DR LAU IN TO SEE PATIENT UPDATE IS GIVEN 1141 PLACED ON CPAP TRIAL AT THIS TIME... BY RT 1230 NO CHANGES.. 1345 PLACED BACK ON VENT BY RT 1430 WITHOUT CHANGED
--- NOTE | 2020-01-01 18:01 | NUR ---
1530 I AND O DONE . REPOSITIONED.. 1630 PT IS AWAKE AND QUIET.. 1730 ORAL CARE DONE WITHOUT CHANGES.. CONTINUES ON THE VENT ORALLY INTUBATED..
--- NOTE | 2020-01-01 19:05 | NUR ---
RE-ASSIGNMENT CHANGED. GAVE BEDSIDE SHIFT RERPOT TO YASMEEN HERNANDEZ AT THIS TIME. PT IS AWAKE, INTUABTED AND SEDATED. VSS.
--- NOTE | 2020-01-01 20:01 | NUR ---
REC'D REPORT FROM OFF-GOING NURSE AND ASSUMED CARE. ONLY LIGHTLY SEDATED @ 10 MCG/KG/MIN (3.9 ML/HR) WILL OPEN EYES TO VERBAL STIMULI. O2 SAT UPPER 90S, VENT SETTINGS PER ASSESSMENT FLOW SHEET, O2 SAT UPPER 90S. LESS THAN 5CC RESIDUAL ON TUBE FEEDING. COARSE RHONCHI AUSCULTATED THROUGHOUT ALL LUNG RICHARD, DID NOT CLEAR WHEN SUCTIONED FOR SCANT SECRETIONS. GENERALIZED EDEMA ALL EXTREMITIES. BALANCE OF ASSESSMENT PER FLOW SHEET. WILL CONT TO MONNITOR.
--- NOTE | 2020-01-01 22:05 | NUR ---
REPOSITIONED AND MOUTH CLEANED OUT. DENIES NEEDS BY SHAKING HEAD, WILL CONT TO MONITOR.
[2020-01-02] VITALS (23 sets, daily range): BP systolic 74–116; BP diastolic 37–98
--- NOTE | 2020-01-02 00:05 | NUR ---
NO CHANGES IN INITIAL ASSESSMENT. HAS BEEN LYING QUIETLY, BREATHING PER THE VENT, O2 SATS UPPER 90. REPOSITIONED FOR COMFORT. WILL CONT TO MONITOR.
--- NOTE | 2020-01-02 02:15 | NUR ---
ROUSES EASILY, OPENING EYES WHEN ONE ENTERS ROOM. PROPOFOL CONT AT 10 MCG/KG. WILL CONT TO MONITOR FOR OVERSEDATION. REMAINS SR PER MONITOR.
--- NOTE | 2020-01-02 04:18 | NUR ---
NO CHANGES IN INITIAL ASSESSMENT. X-RAY BY TO DO MORNING X-RAY. AM LAB DRAWN FROM [facility]. LYING QUIETLY, DENIES NEEDS. WILL CONT TO MONITOR.
[2020-01-02 09:08] LABS: HEMATOCRIT 24.8 % (36.0-48.0); HEMOGLOBIN 7.8 g/dL (12-16); LYMPHOCYTES 16.9 % (15-50); MCH 30.4 pg (26.0-34.0); MCHC 31.5 g/dL (31.0-37.0); MCV 96.5 fL (80.0-100.0); MEAN PLATELET VOLUME 9.3 fL (7.4-10.4); NEUTROPHILS 74.4 % (40-80); PLATELET COUNT 420 10x3/uL (130-400); RBC 2.57 10x6/uL (4.00-5.40); RDW 13.1 % (11.5-14.5); WBC 9.4 10x3/uL (4.8-10.8)
[2020-01-02 09:41] LABS: ALBUMIN 1.5 g/dL (3.4-5.0); ANION GAP 12.9 mmol/L (8-16); BILIRUBIN - TOTAL 0.17 mg/dL (0.2-1.3); CALCIUM 8.4 mg/dL (8.5-10.1); CARBON DIOXIDE 24.2 mmol/L (21.0-32.0); CREATININE - SERUM 1.2 mg/dL (0.6-1.3); POTASSIUM - SERUM 4.1 mmol/L (3.5-5.1); VANCOMYCIN - RANDOM 10.5 ug/mL (10.0-20.0)
--- NOTE | 2020-01-02 10:24 | NUR ---
0700 REPORT RECIEVED AND CARE ASSUMED OF PATIENT.. SEE FLOW SHEET FOR SHIFT ASSESMENT 0730 DR HERNÁNDEZ IN TO SEE PATIENT...UPDATE IS GIVEN TO HIM.. PATIENT IS EASILY ROUSED AND OPENS EYES.. DOES NOT FOLLOW COMMANDS 0830 LAB IN TO DRAW LAB... NGT RESIDUAL CHECK 2CC OBTAINED 0900 WITHOUT VISITORS...
--- NOTE | 2020-01-02 10:32 | NUR ---
1030 PLACED ON CPAP BY RT AT THIS TIME.. 30%
--- NOTE | 2020-01-02 17:26 | NUR ---
1200 PT PLACED BACK ON VENT BY RT.. 1300 WITHOUT CHANGES PT APPEARS SLEEPING AT THIS TIME.. 1400 NO CHANGES.. REMAINS ON VENT WITH TUBE FEEDING 1500 OPENS EYES TO VERBAL STIMULI 1600 NO CHANGES 1700 AWAKE AND WITH OPEN EYES..
--- NOTE | 2020-01-02 20:15 | NUR ---
REC'D REPORT FROM OFF-GOING NURSE AND ASSUMED CARE. INITIAL CARE PER FLOW SHEET. OPENS EYES TO VERBAL STIMULI. WILL CONT WITH CURRENT PLAN OF CARE.
--- NOTE | 2020-01-02 23:59 | NUR ---
TO START A UNIT OF PRBC'S PROPOFOL REMAINS AT 10 MCG/KG/MIN. EYES CLOSED BUT EASILY AROUSES, CONT TO MONITOR
[2020-01-03] VITALS (21 sets, daily range): BP systolic 86–142; BP diastolic 47–104
--- NOTE | 2020-01-03 04:10 | NUR ---
PRBCs INFUSED WITHOUT DIFFICULTY. HAS BEEN RUNNING 99.1 TO 99.8 THROUGHOUT THE NIGHT. WILL CONT WITH CURRENT PLAN OF CARE.
[2020-01-03 04:42] LABS: BASOPHILS 0.2 % (0-2); HEMOGLOBIN 8.4 g/dL (12-16); LYMPHOCYTES 18.9 % (15-50); MCH 30.5 pg (26.0-34.0); MCHC 32.3 g/dL (31.0-37.0); MEAN PLATELET VOLUME 9.5 fL (7.4-10.4); MONOCYTES 5.8 % (2-11); NEUTROPHILS 73.1 % (40-80); PLATELET COUNT 386 10x3/uL (130-400); RBC 2.75 10x6/uL (4.00-5.40); RDW 13.3 % (11.5-14.5); WBC 8.8 10x3/uL (4.8-10.8)
[2020-01-03 04:50] LABS: MCV 94.5 fL (80.0-100.0)
[2020-01-03 04:54] LABS: ALBUMIN 1.5 g/dL (3.4-5.0); ANION GAP 10.8 mmol/L (8-16); BILIRUBIN - TOTAL 0.13 mg/dL (0.2-1.3); CALCIUM 8.8 mg/dL (8.5-10.1); CARBON DIOXIDE 25.4 mmol/L (21.0-32.0); CREATININE - SERUM 1.2 mg/dL (0.6-1.3); POTASSIUM - SERUM 4.2 mmol/L (3.5-5.1); PROTEIN - SERUM 5.3 g/dL (6.4-8.2)
--- NOTE | 2020-01-03 07:00 | NUR ---
REC'D RPEORT AND RESUMED CARE, ETT TO VENTILATION AND SECURED, ORAL CARE AND SUCTION COMPLETED, FIO2 30%, SAT99%, OGT WITH TF, PULMOCARE AT 40 CC/HR, LEFT UPPER ARM MIDLINE IN PLACE WITH PROPOFAL AT 10 MCG, D51/2 N AT 75, UPPER EXTREMITY 3+ EDEMA NOTED, RUIZ TO GRAVITY WITH CONCENTRATED YELLOW DRAINAGE TO BAG, B/L SCD'S AND HEEL PROTECTORS, ASSESSMENT COMPLETED PER FLOWSHEET, VSS, OPENS EYES DOES NOT FOLLOW COMMANDS, REPOSITIONED UP AND TO BACK WITH HEELS FLOATED
--- NOTE | 2020-01-03 10:00 | NUR ---
MORNING MEDS GIVEN PER [facility] FLOWSHEET
--- NOTE | 2020-01-03 11:00 | NUR ---
NO ACUTE CHANGE FROM PREVIOUS ASSESSMENT, WILL CONTINIUE WITH POC
--- NOTE | 2020-01-03 11:26 | NUR ---
Nutrition follow-up: Pt remains intubated, awake at this time Pulmocare infusing @ 40 ml/hr Labs reviewed Wt: 145# Pt tolerating TF at this time RDN following.
--- NOTE | 2020-01-03 15:00 | NUR ---
CHANGED BACK TO RATE ON VENT, SEDATION BACK ON, VSS, AWAKE, DOES NOT FOLLOW COMMANDS, NO OTHER ACUTE CHANGE FROM PREVIOUS
--- NOTE | 2020-01-03 19:45 | NUR ---
REC'D REPORT FROM OFF-GOING NURSE AND ASSUMED CARE OF PT. INITIAL ASSESSMENT COMPLETED AND RECORDED PER FLOW SHEET. TUBE FEEDING INFUNING WITHOUT DIFF. WILL [place]
--- NOTE | 2020-01-03 23:55 | NUR ---
NO CHANGES IN INITIAL ASSESSMENT. CONT UPPER 90S ON O2 SATS, RR PER VENT. WILL CONT TO MONITOR
[2020-01-04] VITALS (20 sets, daily range): BP systolic 87–117; BP diastolic 56–96
[2020-01-04 05:02] LABS: HEMATOCRIT 28.9 % (36.0-48.0); HEMOGLOBIN 9.5 g/dL (12-16); LYMPHOCYTES 8.8 % (15-50); MCHC 32.9 g/dL (31.0-37.0); MCV 94.4 fL (80.0-100.0); MEAN PLATELET VOLUME 9.3 fL (7.4-10.4); NEUTROPHILS 88.1 % (40-80); PLATELET COUNT 453 10x3/uL (130-400); RBC 3.06 10x6/uL (4.00-5.40); RDW 13.8 % (11.5-14.5)
[2020-01-04 05:03] LABS: WBC 11.7 10x3/uL (4.8-10.8)
[2020-01-04 05:22] LABS: ALBUMIN 1.7 g/dL (3.4-5.0); ANION GAP 9.6 mmol/L (8-16); BILIRUBIN - TOTAL 0.24 mg/dL (0.2-1.3); CALCIUM 8.9 mg/dL (8.5-10.1); CREATININE - SERUM 1.3 mg/dL (0.6-1.3); POTASSIUM - SERUM 4.6 mmol/L (3.5-5.1)
--- NOTE | 2020-01-04 06:25 | NUR ---
REPOSITIONED FOR COMFORT AND PROMOTION OF PULMONARY HYGIENE. NO SIGNS OF DISTRESS. WILLL CONT TO MONITOR
--- NOTE | 2020-01-04 07:00 | NUR ---
REC'D REPORT AND RESUMED CARE, ETT TO VENTILATION AND SECRUED, AC MODE, VSS, SEDATION IN USE, ASSESSMENT COMPLETED PER FLOWSHEET, OPENS EYES, DOES NOT FOLLOW COMMANDS
--- NOTE | 2020-01-04 07:20 | NUR ---
SHIFT ASSESSMENT COMPLETE, PT SEDATED ON VENT, ON 30% FIO2 WITH 97% O2 SAT. ALL PPP, VSS, WILL CON'T TO MONITOR
--- NOTE | 2020-01-04 09:00 | NUR ---
DR. SCHNEIDER AT BEDSIDE, UPDATE GIVEN
--- NOTE | 2020-01-04 11:00 | NUR ---
CONTINUES ON CPAP, NO ACUTE CHANGE FROM PREVIOUS ASSESSMNET
--- NOTE | 2020-01-04 11:20 | NUR ---
REASSESSMENT COMPLETE, NO CHANGES NOTED, WILL CON'T TO MONITOR
--- NOTE | 2020-01-04 13:30 | NUR ---
RESPIRATIONS 44, CHANGED TO AC MODE, LEAVING SEDATION OFF PER ORDER
--- NOTE | 2020-01-04 15:30 | NUR ---
REASSESSMENT COMPLETE, NO CHANGES NOTED, WILL CON'T TO MONITOR
[2020-01-05] VITALS (21 sets, daily range): BP systolic 84–127; BP diastolic 49–82
--- NOTE | 2020-01-05 07:05 | NUR ---
REPORT RECIEVED, SHIFT ASSESSMENT COMPLETE, PT IS ALERT, FOLLOWS COMMANDS, ON 30% FIO2 WITH 97% O2 SAT. ALL PPP, VSS, CALL LIGHT IN REACH
--- NOTE | 2020-01-05 09:00 | NUR ---
DR. SCHNEIDER AT BEDSIDE, UPDATE GIVEN
--- NOTE | 2020-01-05 10:30 | NUR ---
PT EXTUBATED AT THIS TIME TO 3L NC, TOLERATING WELL
--- NOTE | 2020-01-05 11:01 | NUR ---
Nutrition follow-up: Pt on vent; SBT trials Pulmocare @ 40 ml/hr Labs reviewed Wt: 145# May extubate today RDN following.
--- NOTE | 2020-01-05 13:15 | NUR ---
REPOSITIONED FOR COMFORT, ORAL CARE PROVIDED,
--- NOTE | 2020-01-05 15:20 | NUR ---
REASSESSMENT COMPLETE, NO CHANGES NOTED
[2020-01-06] VITALS (16 sets, daily range): BP systolic 92–129; BP diastolic 54–77
--- NOTE | 2020-01-06 07:05 | NUR ---
REPORT RECIEVED, SHIFT ASSESSMENT COMPLETE, ,PT IS CONFUSED, ATTEMPTED TO REORIENT TO TIME, SITUATION, AND PLACE, ALL PPP, VSS, CALL LIGHT IN REACH
[2020-01-06 08:53] LABS: HEMOGLOBIN 9.7 g/dL (12-16); LYMPHOCYTES 7.7 % (15-50); MCH 32.1 pg (26.0-34.0); MCHC 33.4 g/dL (31.0-37.0); MEAN PLATELET VOLUME 10.3 fL (7.4-10.4); NEUTROPHILS 86.2 % (40-80); PLATELET COUNT 464 10x3/uL (130-400); RBC 3.02 10x6/uL (4.00-5.40); RDW 13.3 % (11.5-14.5); WBC 12.4 10x3/uL (4.8-10.8)
[2020-01-06 08:59] LABS: ALBUMIN 2.1 g/dL (3.4-5.0); ANION GAP 19.7 mmol/L (8-16); BILIRUBIN - TOTAL 0.2 mg/dL (0.2-1.3); CALCIUM 8.3 mg/dL (8.5-10.1); CARBON DIOXIDE 15.7 mmol/L (21.0-32.0); CREATININE - SERUM 1.3 mg/dL (0.6-1.3); POTASSIUM - SERUM 4.4 mmol/L (3.5-5.1); PROTEIN - SERUM 5.6 g/dL (6.4-8.2)
--- NOTE | 2020-01-06 14:29 | NUR ---
PATIENT IS STABLE AND VSS. ORDER FOR TRANSFER. REPORT GIVEN.
--- NOTE | 2020-01-06 16:24 | NUR ---
PT ARRIVAL TO UNIT. PLACED ON DROPLET PRECAUTIONS. EXTREMITIES ARE BRUISED. UPPER EXTREMITIES ARE SWOLLEN. THERE IS A SCAB/SORE ON HER RIGHT BOTTOM HEEL. PRESSURE ULCER STAGE 2 ON BUTTOCK. LUNG SOUNDS CTA, S1,S2 AUSCULTATED. RADIAL AND PEDAL PULSES PALPABLE. BOWEL SOUNDS HYPERACTIVE. MIDLINE TO LEFT UPPER ARM WITH FLUID AT 75 ML/H. CL IN REACH. BED ALARM ON. PATIENT "YELLING" OUT "HELP ME" ASKED WHETHER OR NOT SHE HAD A BM. SHE STATED YES. UPON CHECKING SHE DID NOT. PT CONTINUES TO YELL HELP ME WITH NO UNDERSTANDING OF WHAT SHE NEEDS. CL IN REACH. TM
[2020-01-06 17:09] LABS: FUNGUS CULTURE RESULT 1 Candida albicans (())
--- NOTE | 2020-01-06 20:00 | NUR ---
PATIENT RESTING IN BED WITH EYE OPEN. NO S/S OF ACUTE DISTRESS. NO C/O AT THIS TIME. PATIENT IS ON DROPLET PRECAUTIONS. PATIENT HAS NG-TUBE IN RIGHT NARE, TUBE FEEDING (PULMICORT) @ 40 ML/HR. PATIENT HAS LEFT UPPER ARM MIDLINE, D5 1/2 NORMAL SALINE @ 75 ML/HR. IV IS PATENT WITHOUT REDNESS, SWELLING, OR TENDERNESS. PATIENT BUE ARE SWOLLEN, AND BRUISED. PATIENT HAS RUIZ. PATIENT HAS A STAGE TWO ON BUTTOCKS. PATIENT HAS BLISTERS AND CORNS ON BILAT FEET. CALL LIGHT WITHIN REACH. BED ALARM ON. WILL CONTINUE TO MONITOR.
--- NOTE | 2020-01-06 22:00 | NUR ---
PATIENT TUBE-FEEDING CHANGED. 900 ML PLACED INSIDE 40 ML/HR RATE. 1.5 PULMICORT WAS GIVEN. NO S/S OF ACUTE DISTRESS. NO C/O AT THIS TIME. CALL LIGHT WITHIN REACH. WILL CONTINUE TO MONITOR.
[2020-01-07 04:00] VITALS: BP 105/61
--- NOTE | 2020-01-07 06:55 | NUR ---
RESTING IN BED WITH EYES CLOSED. RESPIRATIONS EVEN AND UNLABORED. NO S/S OF ACUTE DISTRESS NOTED. ON 3L O2, NC. 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 BUE EDEMA AND BRUISING. HEEL PROTECTORS ON BILATERAL FEET. RUIZ CATHETER. MIDLINE TO LEFT UPPER ARM, D5 1/2 NS INFUSING @ 75ML/HR. SITE PATENT WITHOUT REDNESS OR SWELLING. NG TUBE TO RIGHT NARE, PULMICORT @ 40ML/HR. BLISTERS TO BILATERAL FEET. SCDS ON. CALL LIGHT IN REACH. WILL CONTINUE TO MONITOR.
[2020-01-07 08:30] VITALS: BP 111/58
[2020-01-07 10:12] LABS: BASOPHILS 0 % (0-2); EOSINOPHILS 0 % (0-7); HEMATOCRIT 30.5 % (36.0-48.0); HEMOGLOBIN 9.5 g/dL (12-16); IMMATURE GRANULOCYTES 0.5 % (0-5); MCH 30.2 pg (26.0-34.0); MCHC 31.1 g/dL (31.0-37.0); MCV 96.8 fL (80.0-100.0); MEAN PLATELET VOLUME 10.1 fL (7.4-10.4); MONOCYTES 4.4 % (2-11); NEUTROPHILS 87.1 % (40-80); PLATELET COUNT 418 10x3/uL (130-400); RBC 3.15 10x6/uL (4.00-5.40); RDW 13.8 % (11.5-14.5); WBC 11.7 10x3/uL (4.8-10.8)
[2020-01-07 10:22] LABS: CALCIUM 8.4 mg/dL (8.5-10.1); CREATININE - SERUM 1.4 mg/dL (0.6-1.3); POTASSIUM - SERUM 4.6 mmol/L (3.5-5.1)
[2020-01-07 10:25] LABS: CARBON DIOXIDE 21.6 mmol/L (21.0-32.0)
[2020-01-07 10:26] LABS: MAGNESIUM - SERUM 2.1 mg/dL (1.8-2.4); PHOSPHOROUS 4.1 mg/dL (2.5-4.9)
--- NOTE | 2020-01-07 10:51 | NUR ---
I have reviewed this patient and I concur with the Shift Assessment completed by the Licensed Practical Nurse today this shift.
[2020-01-07 12:00] VITALS: BP 114/41
[2020-01-07 17:19] VITALS: BP 109/59
--- NOTE | 2020-01-07 18:48 | NUR ---
RESTING IN BED WITH EYES CLOSED. NO S/S OF ACUTE DISTRESS NOTED. CALL LIGHT IN REACH. WILL CONTINUE TO MONITOR.
[2020-01-07 20:00] VITALS: BP 128/68
[2020-01-08] VITALS: BP 103/54
--- NOTE | 2020-01-08 04:14 | NUR ---
ASSESSED. AT THE BEGINNING OF THE SHIFT AND PT WAS RESTING QUIET BUT IS TOTAL CARE AND MUST BE TURNED EVERY TWO HOURS TO PREVENT SKIN BREAKDOWN. SHE HAS A RUIZ CATH IN PLACE WITH CLEAR YELLOW URINE. HER HEAD KEEPS TURNING TO THE RIGHT AND EVEN TURNED TO THE LEFT HER HEAD KEEPS GOING BACK IF CONTRACTED.
--- NOTE | 2020-01-08 07:30 | NUR ---
AWAKE AND ALERT. RESPONDS TO YES/NO QUESTIONS.
[2020-01-08 08:00] VITALS: BP 124/70
[2020-01-08 08:50] LABS: CALCIUM 8.7 mg/dL (8.5-10.1); CARBON DIOXIDE 24.2 mmol/L (21.0-32.0); CREATININE - SERUM 1.3 mg/dL (0.6-1.3); PHOSPHOROUS 3.7 mg/dL (2.5-4.9); POTASSIUM - SERUM 4.2 mmol/L (3.5-5.1)
[2020-01-08 09:00] LABS: BASOPHILS 0 % (0-2); EOSINOPHILS 0.3 % (0-7); HEMATOCRIT 29.8 % (36.0-48.0); HEMOGLOBIN 9.5 g/dL (12-16); IMMATURE GRANULOCYTES 0.5 % (0-5); LYMPHOCYTES 17.6 % (15-50); MCH 31.4 pg (26.0-34.0); MCHC 31.9 g/dL (31.0-37.0); MCV 98.3 fL (80.0-100.0); MEAN PLATELET VOLUME 9.7 fL (7.4-10.4); MONOCYTES 8.5 % (2-11); NEUTROPHILS 73.1 % (40-80); PLATELET COUNT 364 10x3/uL (130-400); RBC 3.03 10x6/uL (4.00-5.40); RDW 14.1 % (11.5-14.5)
--- NOTE | 2020-01-08 09:15 | NUR ---
ATE ABOUT 30% OF BREAKFAST WITH STAFF FEEDING HER. LUNGS ARE CLEAR BILATERALLY, NO COUGH NOTED. SKIN IS INTACT WITHOUT REDNESS EXCEPT TO BILATERAL HEELS WHICH HAVE HEEL PROTECTORS IN PLACE. ARMS HAVE 2-3 PLUS EDEMA. PLACED UP ON PILLOWS. WILL MONITOR. RUIZ PATENT WITH CLEAR YELLOW URINE. MIDLINE TO LEFT UPPER ARM PATENT WITHOUT REDNESS AT INSERTION SITE. NO NEEDS NOTED.
--- NOTE | 2020-01-08 10:15 | NUR ---
VERY LETHARGIC AT THIS TIME. RESPONDS WITH ONLY A GRUNT WHEN ASKED QUESTIONS. WILL MONITOR.
[2020-01-08 12:00] VITALS: BP 134/65
--- NOTE | 2020-01-08 12:00 | NUR ---
LUNCH SERVED IN ROOM. PATIENT DOESN'T AROUSE ENOUGH TO EAT AT THIS TIME AFTER SERVERAL ATTEMPTS PER STAFF. WILL MONITOR.
--- NOTE | 2020-01-08 14:47 | NUR ---
RESTING QUIETLY IN BED. CONTINUES LETHARGIC.ONLY GRUNTS TO ANSWER YES/NO QUESTIONS.
[2020-01-08 16:00] VITALS: BP 113/68
--- NOTE | 2020-01-08 17:30 | NUR ---
SUPPER SERVED IN ROOM. REFUSED TO ROUSE AND EAT. NO CHANGES NOTED. NO NEEDS ASSESSED.
[2020-01-08 20:00] VITALS: BP 135/68
--- NOTE | 2020-01-09 00:15 | NUR ---
Patent resting with no s/s of distress. remains on isolation for MRSA. NG tub to right goode. IV left midline in place and paten with D5 1/2 NS per orders. Smith cath in place and paten with yellow urin to bag. on regular diet puree wuth Honey thick liquids. Remains opn Lovenox for DVT. Edema to bilateral arm and legs. heal protecters in place. Truned for comfort. Checked often for safety and needs by staff. fluids offered by staff.call light in reach.
[2020-01-09 01:50] VITALS: BP 138/72
[2020-01-09 04:00] VITALS: BP 140/70
[2020-01-09 06:14] LABS: BASOPHILS 0 % (0-2); EOSINOPHILS 0.3 % (0-7); HEMATOCRIT 31.5 % (36.0-48.0); HEMOGLOBIN 10.2 g/dL (12-16); IMMATURE GRANULOCYTES 0.7 % (0-5); LYMPHOCYTES 17.1 % (15-50); MCH 31.8 pg (26.0-34.0); MCHC 32.4 g/dL (31.0-37.0); MCV 98.1 fL (80.0-100.0); MEAN PLATELET VOLUME 9.6 fL (7.4-10.4); MONOCYTES 6.6 % (2-11); NEUTROPHILS 75.3 % (40-80); PLATELET COUNT 326 10x3/uL (130-400); RBC 3.21 10x6/uL (4.00-5.40); WBC 10.2 10x3/uL (4.8-10.8)
[2020-01-09 06:57] LABS: ANION GAP 14.7 mmol/L (8-16); CARBON DIOXIDE 23.1 mmol/L (21.0-32.0); CREATININE - SERUM 1.2 mg/dL (0.6-1.3); MAGNESIUM - SERUM 2.1 mg/dL (1.8-2.4); PHOSPHOROUS 4.3 mg/dL (2.5-4.9); POTASSIUM - SERUM 4.8 mmol/L (3.5-5.1)
--- NOTE | 2020-01-09 07:00 | NUR ---
RECEIVED REPORT, ASSUMED CARE, BREATHING EVEN UNLABORED SHALLOW, NGT IN PLACE, RUIZ CATH TO GRAVITY, DENIES NEEDS REPOSITIONED TO BACK, CALL LIGHT IN REACH, BED LOWEST POSITION, HEEL FOAM PROTECTORS ON, MIDLINE TO LAC PATENT, WILL CONTINUE POC
--- NOTE | 2020-01-09 09:00 | NUR ---
REPOSITIONED PATIENT TO RIGHT SIDE, TRIED TO FEED PT REFUSED TO HOLD HER HEAD UP TO EAT, WILL CONTINUE TO TRY
[2020-01-09 09:04] VITALS: BP 138/88
[2020-01-09 13:00] VITALS: BP 122/63
--- NOTE | 2020-01-09 14:31 | NUR ---
I have reviewed this patient and I concur with the Shift Assessment completed by the Licensed Practical Nurse today this shift.
[2020-01-09 16:00] VITALS: BP 123/71
[2020-01-09 20:00] VITALS: BP 108/54
[2020-01-10] VITALS: BP 110/50
--- NOTE | 2020-01-10 01:32 | NUR ---
PATIENT IN ALERT TO SELF. I V IS MIDLINE TO UPPER LEFT ARM WITH D5 1/2 NS PER ORDERS, F/C IN PLACE AND PATEN WITH YELLOW URINE TO BAG. TRUN EVERY 2 HR FOR COMFORT. PT WILL DEEP BREATH BUT WILL NOT COUGH FOR THIS STAFF. EDEMMA PERSENT TO UPPER AND LOWER EXTREAMITYS. HEAL PROTECTERS IN PLACE. LOVONEX FOR DVT CONTROLL. O2 VIA N/C AT 3LETERS PER MIN. DIET IS PUREE WITH HONRY THICK LIQUIDS. CHECKED OFTEN FOPR NEEDS AND SAFETY.
[2020-01-10 04:00] VITALS: BP 135/100
[2020-01-10 05:58] LABS: BASOPHILS 0.1 % (0-2); EOSINOPHILS 0.1 % (0-7); HEMATOCRIT 31.9 % (36.0-48.0); HEMOGLOBIN 10.3 g/dL (12-16); IMMATURE GRANULOCYTES 0.5 % (0-5); LYMPHOCYTES 14.6 % (15-50); MCH 31.5 pg (26.0-34.0); MCHC 32.3 g/dL (31.0-37.0); MCV 97.6 fL (80.0-100.0); MEAN PLATELET VOLUME 9.6 fL (7.4-10.4); MONOCYTES 6.1 % (2-11); NEUTROPHILS 78.6 % (40-80); PLATELET COUNT 327 10x3/uL (130-400); RBC 3.27 10x6/uL (4.00-5.40); WBC 11.1 10x3/uL (4.8-10.8)
[2020-01-10 06:00] LABS: ANION GAP 11.5 mmol/L (8-16); CALCIUM 9.2 mg/dL (8.5-10.1); CREATININE - SERUM 1.2 mg/dL (0.6-1.3); MAGNESIUM - SERUM 1.9 mg/dL (1.8-2.4); PHOSPHOROUS 4.3 mg/dL (2.5-4.9); POTASSIUM - SERUM 4.5 mmol/L (3.5-5.1)
[2020-01-10 08:00] VITALS: BP 142/74
[2020-01-10 12:25] VITALS: BP 123/61
--- NOTE | 2020-01-10 13:16 | NUR ---
RECEIVED REPORT, ASSUMED CARE, BREATHING EVEN UNLABORED SHALLOW, NGT IN PLACE, RUIZ CATH TO GRAVITY, DENIES NEEDS REPOSITIONED TO LEFT, CALL LIGHT IN REACH, BED LOWEST POSITION, HEEL FOAM PROTECTORS ON, MIDLINE TO LAC PATENT,LEFT ARM ELEVATED ON PILLOW TO HELP REDUCE SWELLING, WILL CONTINUE POC
--- NOTE | 2020-01-10 13:50 | NUR ---
I have reviewed this patient and I concur with the Shift Assessment completed by the Licensed Practical Nurse today this shift.
--- NOTE | 2020-01-10 15:09 | NUR ---
Nutrition follow-up: TF off at this time Diet has advanced to regular puree with honey thick liquids Nurse reports pt ate ~30% of breakfast this am but did not eat lunch. Labs reviewed WT: 157# To promote hunger during the day, RDN will order nocturnal TF from 1800 - 0600 to see if pt will start to eat more during the day. RDN will order Osmolite 1.5 mandy @ 40 ml/hr. RDN following.
[2020-01-10 16:56] VITALS: BP 112/58
[2020-01-10 20:00] VITALS: BP 148/82
--- NOTE | 2020-01-10 20:00 | NUR ---
CHECKED IN ON PT. NO CHANGES.
--- NOTE | 2020-01-10 21:30 | NUR ---
ASSESSMENT COMPLETED. PT IS ON DROPLET PRECAUTIONS. SHE IS SITTING UP AT 30 DEGREES OM BED. SHE HAS A RUIZ CATHETER IN PLACE WHICH IS DRAINING WELL. SHE HAS A LEFT MIDLINE IV ACCESS. IT IS PATENT AND NO REDNESS OR PAIN AT THE SITE. PT HAS 3L OF O2 PER NC. PT IS BEING RUENED EVERY 2 HOURS. THERE IS SOME EDEMA NOTED IN BILATERAL UPPER ARMS. PT HAS FOAM HEEL PROTECTORS ON BOTH FEET. HER LOWER LEGS ARE ON A PILLOW. HER DIET IS PUREED WITH HONEY THICK LIQUIDS. WHEN I ASSESSED THE TUBE FEEDING I FOUND THAT THE TUBING WAS NOT HOOKED TO THE NG TUBE. THE FEEDING PUMP IS SHOWING THAT 40 ML/HR IS BEING INFUSED. THE OFF GOING NURSE IMPLIED STRONGLY THAT THE PUMP WAS HOOKED UP AND FEEDING PT. SHE SAID THAT SHE HAD WORKED ALL DAY TO GET TUBE UNCLOGGED. SHE TOLD ME TO BE SURE TO STOP THE FEEDING AT 0600. THE NG TUBE LOOKS LIKE IT HAS CURDLED MILK IN IT. PASSIVE ROM WAS DONE WITH PT BILATERAL ARMS. WE DID 10 TIMES PER ARM. THE MORE WE DID, THE LOOSER SHE GOT. HER HANDS WERE ALSO OPENED. WHEN ASSESSING HER RUIZ CATHETER IT IS NOTED THAT PT HAS LARGE AREAS OF REDNESS BETWEEN HER LEGS AT THE THIGH. PT IS NOT VERBAL NOW TO C/O ABOUT IT.
--- NOTE | 2020-01-10 21:50 | NUR ---
TALKED WITH EVAN BULLOCK ABOUT THE NG TUBE NOT BEING CONNECTED AND THE NG TUBE NOT FLUSHABLE. SHE SAID TO CLAMP THE NG TUBE AND ORDER A KUB AND CXR TO CONFIRM PLACEMENT OF THE NG TUBE.
--- NOTE | 2020-01-10 22:10 | NUR ---
ORDERS PUT IN FOR THE X RAYS.
--- NOTE | 2020-01-11 00:30 | NUR ---
PT IS RESTING QUIETLY. WE DID ROM AGAIN ON BOTH ARMS. SHE DID WELL.
--- NOTE | 2020-01-11 02:53 | NUR ---
REPORT GIVEN BY MED SURGE DAY RM
[2020-01-11 04:00] VITALS: BP 151/87
--- NOTE | 2020-01-11 04:10 | NUR ---
PT IS DOING WELL. WE DID ROM AGAIN AND PT DID WELL WITH HER MOVEMENT. IT GETS EASIER THE MORE SHE DOES IT. HANDS WERE OPENED, TOO. AFTER WE FINISHED ROM I TOOK THE BATH SHEETS AND WASHED HE OFF BEST I COULD. SINCE HER NG TUBE IS NOT RUNNING I PUT HER HEAD DOWN A LITTLE SO SHE WOULD NOT BE SLUMPED OVER. ORAL CARE WAS DONE WITH A LEMON GLYCERINE SWAB. SHE LOVED HAVING HER LIPS FEELING SOFTER. I WAS ABLE TO DO THE GUMS AND TEETH ON THE OUTSIDE FRONT OF HER MOUTH BUT SHE WOULD NOT OPEN HER MOUTH. I LEFT A PKG OF LEMON SWABS AND TOOK MOUTHWASH IN HER ROOM FOR MORE ORAL CARE THROUGH THE DAY. THIS WILL BE PASSED ON IN REPORT.
[2020-01-11 06:12] LABS: BASOPHILS 0.1 % (0-2); EOSINOPHILS 0.1 % (0-7); HEMATOCRIT 32.2 % (36.0-48.0); HEMOGLOBIN 10.6 g/dL (12-16); IMMATURE GRANULOCYTES 0.3 % (0-5); LYMPHOCYTES 14.3 % (15-50); MCH 33.4 pg (26.0-34.0); MCHC 32.9 g/dL (31.0-37.0); MEAN PLATELET VOLUME 10.1 fL (7.4-10.4); MONOCYTES 6.8 % (2-11); NEUTROPHILS 78.4 % (40-80); PLATELET COUNT 300 10x3/uL (130-400); RBC 3.17 10x6/uL (4.00-5.40); WBC 11.8 10x3/uL (4.8-10.8)
--- NOTE | 2020-01-11 06:17 | NUR ---
PT IS RESTING WELL. NO C/O. SHE REALLY DIDN'T VERBALIZE MUCH IN ANY WAS LAST NIGHT.
[2020-01-11 06:24] LABS: MCV 101.6 fL (80.0-100.0)
[2020-01-11 06:38] LABS: ANION GAP 12.9 mmol/L (8-16); CALCIUM 9.1 mg/dL (8.5-10.1); CREATININE - SERUM 1.3 mg/dL (0.6-1.3); MAGNESIUM - SERUM 1.9 mg/dL (1.8-2.4); PHOSPHOROUS 4.4 mg/dL (2.5-4.9); POTASSIUM - SERUM 4.9 mmol/L (3.5-5.1)
[2020-01-11 08:00] VITALS: BP 130/62
--- NOTE | 2020-01-11 08:18 | NUR ---
SHE IS NOT TALKING. THE NG TUBE IS STOPPED UP, I CAN NOT FLUSH IT. TURNED TO THE LEFT SIDE, SHE HAS A MEPILEX ON HER COCCYX. SHE HAS A NONBLACHABLE AREA ON HER COCCYX. THE BED ALARM IS ON, THE CALL LIGHT IS WTIHIN REACH.
[2020-01-11 11:59] VITALS: BP 145/75
--- NOTE | 2020-01-11 14:32 | MORECARE ---
CASE MANAGEMENT DISCHARGE SUMMARY PATIENT: KOFI AWAD UNIT: [id number] ADM DATE: 12/24/19 AGE: 74 : 47 SEX: F ROOM/BED: D.2236 AUTHOR: GAGAN,DOC PHYSICIAN: REFERRING PHYSICIAN: KIRILL PONCE MD DATE OF SERVICE: 01/11/20 Discharge Plan Patient Name: KOFI AWAD Facility: [facility]:[place] : 1945 Planned Disposition: Nursing Facility [facility] Cert Anticipated Discharge Date: Discharge Date: Expected LOS: Initial Reviewer: [email or web address] Initial Review Date: 12/24/2019 Generated: 01/11/20 3:32 pm DCP- Discharge Planning Updated by [email or web address]: Trena Quintero on 12/24/19 1:[address] Patient Name: KOFI AWAD Admission Status: ER Accout number: [id number] Admission Date: 12-24-2019 : 1945 Admission Diagnosis: Attending: DASIA Current LOS: 1 Anticipated DC Date: Planned Disposition: Nursing Facility [facility] Cert Primary Insurance: MEDICARE A & B Discharge Planning Comments: PATIENT IS A RESIDENT AT [facility] [phone] PLAN IS FOR HER TO RETURN THERE UPON DISCHARGE. CM WILL CONTINUE TO FOLLOW AND ASSIST NEEDED WITH DISCHARGE PLANNING / NEEDS. Polish Compounder: Trena Quintero DCPIA - Discharge Planning Initial Assessment Updated by [id number]: Trena Quintero on 12/24/19 2:29 pm * Is the patient Alert and Oriented? Yes * How many steps to enter\exit or inside your home? * PCP [facility] * Pharmacy [facility] * Preadmission Environment [facility] * Facility Name [facility] * ADLs Partial Dependent * List name and contact numbers for known caregivers / representatives who currently or will assist patient after discharge: JYOTI RICHARD - SISTER -[phone] DAMIEN PISANO - SISTER - [phone], * Verbal permission to speak to the caregivers and representatives has been obtained from the patient. N/A * Additional services required to return to the preadmission environment? No * Can the patient safely return to the preadmission environment? Yes * Has this patient been hospitalized within the prior 30 days at any hospital? No [facility] Next Contact Date: Service Request Date: Service Type: Resolution: Reviewer: Comments: Last DP export: 12/24/19 1:40 pm Patient Name: KOFI AWAD Page [phone] at 1432 All edits/amendments must be made on the electronic document DICTATION DATE: 01/11/20 143 SENIOR ELECTRICAL DESIGN ENGINEER: SAUL 01/11/20 1432 RPT#: [id number] DC DATE: STATUS: ADM IN [facility] [address] [place] [address] END OF REPORT
[2020-01-11 16:58] VITALS: BP 136/67
--- NOTE | 2020-01-11 19:15 | NUR ---
REPORT GIVEIN BY MARY MENDIETA.
--- NOTE | 2020-01-11 20:45 | NUR ---
PT ASSESSMENT COMPLETED. PT IS IN BED WITH THE HOB ELEVATED TO 30 DEGREES. HER TUBE FEEDING IS RUNNING AT 40ML/HR. HER IV IS INFUSING THROUGH A LEFT MIDLINE AT 50 ML/HR. SITE HAS NO REDNESS AND IS PATENT. SHE HAS A RUIZ CATHETER THAT IS DRAINING WELL. THE REDNESS BETWEEN HER LEGS IN THE THIGH AREA IS MUCH BETTER. AREA IS ONLY SLIGHTLY RED NOW. MORE PASTE APPLIED TO THE SKIN. HER BILATERAL ARMS ARE STRAIGHTEDEN OUT NOW. SHE IS NONVERBAL AT THIS TIME. PT CONTINUES TO BE ON DROPLET ISOLATION.
[2020-01-11 21:16] VITALS: BP 153/84
[2020-01-12] VITALS: BP 144/68
--- NOTE | 2020-01-12 00:45 | NUR ---
PT TEMP ELEVATED TO 101. TYLENOL RECTAL SUPPOSITORY GIVEN NM. BLANKETS REMOVED FROM FROM PT AND COOL AIR IS BLOWING FROM THE AC. PT IS NOW TURNED ON HER LEFT SIDE. ORAL CARE DONE USING MOUTH WASH AND PT COOPERATED FULLY TO OPENING HER MOUTH FOR SWABBING.
--- NOTE | 2020-01-12 01:40 | NUR ---
PT TEMP IS NOW 99.3
--- NOTE | 2020-01-12 02:35 | NUR ---
RESTING QUIETLY IN HER BED. RESPIRATIONS NOTED TO BE 28. IV FLUIDS AND TUBE FEEDINGS ARE IN PROGRESS.
[2020-01-12 04:00] VITALS: BP 127/63
[2020-01-12 05:36] LABS: BASOPHILS 0.1 % (0-2); EOSINOPHILS 0.2 % (0-7); HEMOGLOBIN 11.1 g/dL (12-16); IMMATURE GRANULOCYTES 0.5 % (0-5); LYMPHOCYTES 19.2 % (15-50); MCH 32.2 pg (26.0-34.0); MCHC 31.7 g/dL (31.0-37.0); MCV 101.4 fL (80.0-100.0); MEAN PLATELET VOLUME 10.4 fL (7.4-10.4); MONOCYTES 9.2 % (2-11); NEUTROPHILS 70.8 % (40-80); RBC 3.45 10x6/uL (4.00-5.40); RDW 14.4 % (11.5-14.5); WBC 10.5 10x3/uL (4.8-10.8)
[2020-01-12 05:41] LABS: PLATELET COUNT 229 10x3/uL (130-400)
[2020-01-12 05:59] LABS: ANION GAP 11.3 mmol/L (8-16); CARBON DIOXIDE 28.2 mmol/L (21.0-32.0); CREATININE - SERUM 1.4 mg/dL (0.6-1.3); PHOSPHOROUS 3.8 mg/dL (2.5-4.9); POTASSIUM - SERUM 4.5 mmol/L (3.5-5.1)
[2020-01-12 06:08] LABS: MAGNESIUM - SERUM 2.5 mg/dL (1.8-2.4)
--- NOTE | 2020-01-12 06:54 | NUR ---
PT HAS BEEN SLEEPING. ORAL CARE WAS DONE X3 WITH THE MOUTHWASH. SHE OPENED HER MOUTH TO GET THIS DONE. SHE WILL GAG IF YOU GO BACK TOO FAR. ARMS HAVE BEEN EXTENDED ALL NIGHT
[2020-01-12 08:00] VITALS: BP 129/58
--- NOTE | 2020-01-12 08:53 | NUR ---
SHE IS MORE ALERT TODAY, SHE HAS ATE SOME BREAKFAST, (WAS FED BY STAFF). SHE IS LOOKING AROUND. THE CALL LIGHT IS WITHIN REACH, THE BED ALARM IS ON. WE TURNED HER, SHE HAS THE MEPILEX DRESSING TO HER COCCXY.
[2020-01-12 11:51] VITALS: BP 128/82
--- NOTE | 2020-01-12 12:51 | MORECARE ---
CASE MANAGEMENT DISCHARGE SUMMARY PATIENT: KOFI AWAD UNIT: [id number] ADM DATE: 12/24/19 AGE: 74 : 47 SEX: F ROOM/BED: D.[facility]6 AUTHOR: GAGAN,DOC PHYSICIAN: REFERRING PHYSICIAN: KIRILL PONCE MD DATE OF SERVICE: 01/12/20 Discharge Plan Patient Name: KOFI AWAD Facility: [facility]:[place] : 1945 Planned Disposition: Nursing Facility [facility] Cert Anticipated Discharge Date: Discharge Date: Expected LOS: Initial Reviewer: [email or web address] Initial Review Date: 12/24/2019 Generated: 01/12/20 1:50 pm Comments DCP- Discharge Planning Updated by [id number]: Mayra Peña on 01/12/20 11:[address] Patient Name: KOFI AWAD Admission Status: ER Accout number: [id number] Admission Date: 12-24-2019 : 1945 Admission Diagnosis:SEPSIS, UNSPECIFIED ORGANISM Attending: DASIA Current LOS: 19 Anticipated DC Date: Planned Disposition: Nursing Facility [facility] Cert Primary Insurance: MEDICARE A & B Discharge Planning Comments: CALLED [facility] YESTERDAY AND THEY ARE FAXING US INFORMATION ON HER. JOY IS SISTER THAT LIVES OUT OF STATE. CM WILL FOLLOW AND ASSIST NEEDED. Shaft Tender: Mayra Peña DCP- Discharge Planning Updated by [id number]: Trena Quintero on 12/24/19 1:[address] Patient Name: KOFI AWAD Admission Status: ER Accout number: [id number] Admission Date: 12-24-2019 : 1945 Admission Diagnosis: Attending: DASIA Current LOS: 1 Anticipated DC Date: Planned Disposition: Nursing Facility [facility] Cert Primary Insurance: MEDICARE A & B Discharge Planning Comments: PATIENT IS A RESIDENT AT [facility] [phone] PLAN IS FOR HER TO RETURN THERE UPON DISCHARGE. CM WILL CONTINUE TO FOLLOW AND ASSIST NEEDED WITH DISCHARGE PLANNING / NEEDS. Shaft Tender: Trena Quintero DCPIA - Discharge Planning Initial Assessment Updated by [email or web address]: Trena Quintero on 7/3/20 2:29 pm * Is the patient Alert and Oriented? Yes * How many steps to enter\exit or inside your home? * PCP [facility] * Pharmacy [facility] * [facility]read[facility] * Facility Name [facility] * ADLs Partial Dependent * List name and contact numbers for known caregivers / representatives who currently or will assist patient after discharge: JYOTI RAMOS - SISTER -[phone] DAMIEN PISANO - SISTER - [phone], * Verbal permission to speak to the caregivers and representatives has been obtained from the patient. N/A * Additional services required to return to the preadmission environment? No * Can the patient safely return to the preadmission environment? Yes * Has this patient been hospitalized within the prior 30 days at any hospital? No Last DP export: 01/11/20 1:32 p Patient Name: KOFI AWAD Page [phone] at 1251 All edits/amendments must be made on the electronic document DICTATION DATE: 01/12/20 1250 SKIN CARE THERAPIST: SAUL 01/12/20 1250 RPT#: [id number] DC DATE: STATUS: ADM IN [facility] [address] [place] [address] END OF REPORT
[2020-01-12 16:11] VITALS: BP 134/80
[2020-01-12 20:00] VITALS: BP 146/66
--- NOTE | 2020-01-12 23:43 | NUR ---
ALERT TO SELF REMAIBNS ON BEDREST TRUN Q 2 FOR COMFORT. ON O2 AT 3LETERS VIA N/C. LEFT UFFER ARM MIDLINE WITH DRESSING CHANGED THIS SHIFT. OSMOLITE 1.5 DAYSI FEEDING AT 40ML/HR AND FLUSHES 100ML EVERY 4 HR. FROM 1800 TO 0600. HEAD OF BED ELAVATED 30 DEGREASS WHILE RUNNING, MED PER NG TUB. CHECKED OFTEN FOR NEEDS AND SAFETY.
[2020-01-13] VITALS: BP 151/80
[2020-01-13 04:00] VITALS: BP 148/74
--- NOTE | 2020-01-13 05:48 | NUR ---
BED SCAL BROKEN
--- NOTE | 2020-01-13 07:29 | NUR ---
PATIENT SLEEPING. LUNGS CLEAR BILATERALLY. HEART SOUNDS S1 AND S2 HEARD IN ALL RICHARD. BOWEL SOUNDS ACTIVE X 4. VASCULAR ACCESS CONSULTED BY RESOURCE CONSERVATIONIST D/T MIDLINE LEAKING. NG TO RIGHT NARE PATENT. BED LOW. BED ALARM ON. CALL TIWARI AND PERSONAL ITEMS IN REACH. WILL CONTINUE TO MONITOR.
[2020-01-13 08:00] VITALS: BP 130/78
--- NOTE | 2020-01-13 09:02 | NUR ---
NG TUBE PULLED SLIGHTLY. ADVANCED AND NEW CXR ORDERED.
--- NOTE | 2020-01-13 10:01 | NUR ---
CONSENTS OBTAINED FOR PEG PLACEMENT TOMORROW BY SISTER DAMIEN PISANO ON PHONE WITH SECOND NURSE WITNESS.
[2020-01-13 10:52] LABS: BASOPHILS 0.1 % (0-2); EOSINOPHILS 2.4 % (0-7); HEMATOCRIT 35.6 % (36.0-48.0); HEMOGLOBIN 11.1 g/dL (12-16); IMMATURE GRANULOCYTES 0.4 % (0-5); LYMPHOCYTES 12.8 % (15-50); MCH 32.5 pg (26.0-34.0); MCHC 31.2 g/dL (31.0-37.0); MEAN PLATELET VOLUME 9.8 fL (7.4-10.4); MONOCYTES 5.7 % (2-11); NEUTROPHILS 78.6 % (40-80); PLATELET COUNT 197 10x3/uL (130-400); RBC 3.42 10x6/uL (4.00-5.40); RDW 14.3 % (11.5-14.5)
[2020-01-13 10:54] LABS: MCV 104.1 fL (80.0-100.0)
[2020-01-13 11:07] LABS: ALBUMIN 2.4 g/dL (3.4-5.0); ANION GAP 12.6 mmol/L (8-16); BILIRUBIN - TOTAL 0.34 mg/dL (0.2-1.3); CALCIUM 8.9 mg/dL (8.5-10.1); CARBON DIOXIDE 26.1 mmol/L (21.0-32.0); CREATININE - SERUM 1.1 mg/dL (0.6-1.3); POTASSIUM - SERUM 4.7 mmol/L (3.5-5.1); PROTEIN - SERUM 6.2 g/dL (6.4-8.2)
[2020-01-13 12:11] VITALS: BP 133/82
--- NOTE | 2020-01-13 12:28 | NUR ---
IV SITED TO JACK BY VASCULAR ACCESS. HARINI MIDLINE REMOVED WITH TIP INTACT. NG TUBE REMOVED PER DR LAMB ORDER IN ROOM.
--- NOTE | 2020-01-13 13:15 | NUR ---
RESTING IN BED. WILL CONTINUE TO MONITOR.
--- NOTE | 2020-01-13 15:23 | NUR ---
IV INFILTRATED TO JACK. REMOVED WITH TIP INTACT. VASCULAR ACCESS NOTIFIED AND STATES WILL COME BACK TO SITE NEW IV.
--- NOTE | 2020-01-13 15:47 | NUR ---
IV SITED TO RFA BY VASCULAR ACCESS.
[2020-01-13 16:08] VITALS: BP 150/82
[2020-01-13 20:00] VITALS: BP 120/61
[2020-01-14] VITALS (8 sets, daily range): BP systolic 121–151; BP diastolic 49–89
--- NOTE | 2020-01-14 00:06 | NUR ---
RESTING IN BED NO S/S OF DISTRESS. NPO PER ORDERS. REMAINS ON ISOLATION FOR MRSA IN SPUTIM. TOTAL CARE VIA STAFF. TRUN EVERY TWO HOURES.
[2020-01-14 04:58] LABS: BASOPHILS 0.1 % (0-2); EOSINOPHILS 3.4 % (0-7); HEMATOCRIT 36.3 % (36.0-48.0); HEMOGLOBIN 11.3 g/dL (12-16); IMMATURE GRANULOCYTES 0.5 % (0-5); LYMPHOCYTES 23.9 % (15-50); MCHC 31.1 g/dL (31.0-37.0); MEAN PLATELET VOLUME 9.5 fL (7.4-10.4); MONOCYTES 5.4 % (2-11); NEUTROPHILS 66.7 % (40-80); RBC 3.64 10x6/uL (4.00-5.40); RDW 13.9 % (11.5-14.5); WBC 10.9 10x3/uL (4.8-10.8)
[2020-01-14 05:23] LABS: ALBUMIN 2.3 g/dL (3.4-5.0); ANION GAP 8.8 mmol/L (8-16); BILIRUBIN - TOTAL 0.31 mg/dL (0.2-1.3); CALCIUM 9.1 mg/dL (8.5-10.1); CARBON DIOXIDE 31.3 mmol/L (21.0-32.0); CREATININE - SERUM 1.3 mg/dL (0.6-1.3); POTASSIUM - SERUM 4.1 mmol/L (3.5-5.1); PROTEIN - SERUM 6.5 g/dL (6.4-8.2)
[2020-01-14 05:35] LABS: MCV 99.7 fL (80.0-100.0); PLATELET COUNT 243 10x3/uL (130-400)
--- NOTE | 2020-01-14 10:43 | NUR ---
SHE IS LOOKING AROUND, EVERY NOW AND THEN SHE TRIES TO MOVE HER MOUTH IF TO SAY SOMETHING. THE SISTER DAMIEN, THE POA CALLED TO CHECK ON HER. THE CALL LIGHT IS WITHIN REACH. THE BED ALARM IS ON.
--- NOTE | 2020-01-14 11:25 | NUR ---
PRE OP MEDS GIVEN, GOING TO GET A PEG TUGE PLACED.
--- NOTE | 2020-01-14 12:30 | NUR ---
SHE IS BACK FROM GETTING THE PEG TUBE PLACED, TUBE SITE IS CLEAN. SHE IS SLEEPING. VS ARE STABLE. THE BED ALARM IS ON AND THE CALL LIGHT IS WITHIN REACH.
--- NOTE | 2020-01-14 15:38 | NUR ---
Nutrition Follow-up: Plan for PEG placement today. Diet: NPO after midnight PO intake: ~16% x last 9 meals Last BM: 01/12/20. Wt: 157# (01/07/20) Meds noted: prednisone Labs noted: BUN 36(H), GFR 43(L), Alb 2.3(L) Once safe to start feeding via PEG recommend: Osmolite 1.5 @ 40mL/hr goal + H20 120mL Q 4hrs. RD following.
--- NOTE | 2020-01-15 03:54 | NUR ---
I have reviewed this patient and I concur with the Shift Assessment completed by the Licensed Practical Nurse today this shift.
[2020-01-15 04:00] VITALS: BP 148/83
[2020-01-15 06:31] LABS: ALBUMIN 2.2 g/dL (3.4-5.0); ANION GAP 8.6 mmol/L (8-16); BILIRUBIN - TOTAL 0.21 mg/dL (0.2-1.3); CALCIUM 9.1 mg/dL (8.5-10.1); CARBON DIOXIDE 30.7 mmol/L (21.0-32.0); CREATININE - SERUM 1.2 mg/dL (0.6-1.3); POTASSIUM - SERUM 4.3 mmol/L (3.5-5.1); PROTEIN - SERUM 6.2 g/dL (6.4-8.2)
[2020-01-15 07:14] LABS: BASOPHILS 0.1 % (0-2); EOSINOPHILS 0.5 % (0-7); HEMATOCRIT 34.7 % (36.0-48.0); HEMOGLOBIN 10.6 g/dL (12-16); IMMATURE GRANULOCYTES 0.4 % (0-5); LYMPHOCYTES 17.6 % (15-50); MCH 30.4 pg (26.0-34.0); MCHC 30.5 g/dL (31.0-37.0); MCV 99.4 fL (80.0-100.0); MEAN PLATELET VOLUME 10.1 fL (7.4-10.4); MONOCYTES 5.9 % (2-11); NEUTROPHILS 75.5 % (40-80); PLATELET COUNT 234 10x3/uL (130-400); RBC 3.49 10x6/uL (4.00-5.40); RDW 14.1 % (11.5-14.5)
--- NOTE | 2020-01-15 08:47 | NUR ---
RESTING IN BED, NO DSITRESS NOTED, EYES CLOSED, TURNED PER STAFF, HEEL PROTECTORS IN PLACE, PEG TUBE LOCKED
[2020-01-15 10:44] VITALS: BP 134/85
[2020-01-15 17:43] VITALS: BP 141/72
[2020-01-15 20:00] VITALS: BP 146/88
--- NOTE | 2020-01-15 22:47 | NUR ---
TURNED AND POSITIONED FOR COMFORT. IV TO LAC INTACT WITHOUT REDNESS OR EDEMA NOTED. PEG TUBE IN PLACE WITH OSMOLITE INFUSING PER ORDERS. RUIZ PATENT AND DRAINING GREGORIO URINE. NO DISTRESS NOTED. CL IN REACH
[2020-01-16 04:00] VITALS: BP 153/96
[2020-01-16 05:40] LABS: BASOPHILS 0.1 % (0-2); EOSINOPHILS 1.6 % (0-7); HEMOGLOBIN 10.6 g/dL (12-16); IMMATURE GRANULOCYTES 0.4 % (0-5); LYMPHOCYTES 16.3 % (15-50); MCH 30.8 pg (26.0-34.0); MCHC 30.3 g/dL (31.0-37.0); MCV 101.7 fL (80.0-100.0); MEAN PLATELET VOLUME 9.9 fL (7.4-10.4); NEUTROPHILS 75.6 % (40-80); PLATELET COUNT 229 10x3/uL (130-400); RBC 3.44 10x6/uL (4.00-5.40); RDW 14.2 % (11.5-14.5); WBC 14.2 10x3/uL (4.8-10.8)
[2020-01-16 05:48] LABS: ALBUMIN 2.1 g/dL (3.4-5.0); ANION GAP 9.3 mmol/L (8-16); BILIRUBIN - TOTAL 0.22 mg/dL (0.2-1.3); CARBON DIOXIDE 31.2 mmol/L (21.0-32.0); CREATININE - SERUM 1.2 mg/dL (0.6-1.3); POTASSIUM - SERUM 4.5 mmol/L (3.5-5.1); PROTEIN - SERUM 6.2 g/dL (6.4-8.2)
--- NOTE | 2020-01-16 07:48 | NUR ---
I have reviewed this patient and I concur with the Shift Assessment completed by the Licensed Practical Nurse today this shift.
--- NOTE | 2020-01-16 07:54 | NUR ---
RESTING IN BED, NO DISTRESS NOTED, TURN PER STAFF, IV INFUSING PER LAC, O2 PER NC, CONT TO MONITOR
[2020-01-16 08:00] VITALS: BP 131/60
--- NOTE | 2020-01-16 11:00 | NUR ---
Nutrition Follow-up: Spoke with Cecy Nicole APRN re: starting TF/flushes to assist with hypernatremia. PEG placed 01/13. No new wt Labs noted: Na 150, Glu 142, Alb 2.1 Meds reviewed -Per previous RD recs, rec Osmolite 1.5 @ goal rate of 40 & H2O flushes 120 mL q 4 hrs. -RD following.
--- NOTE | 2020-01-16 11:30 | NUR ---
TUBE FEEDING STARTED AT 15CC/HR AND 30CC/HR FLUSH DUE TO ELEVATED SODIUM LEVEL
[2020-01-16 13:30] VITALS: BP 113/71; BP 129/64
--- NOTE | 2020-01-16 17:42 | NUR ---
TURNED AND POSITIONED Q2 HRS THIS SHIFT, ENDY WELL,CONT TO MONITOR FEEDING
[2020-01-16 18:26] VITALS: BP 124/66
[2020-01-16 20:00] VITALS: BP 101/62
--- NOTE | 2020-01-16 20:40 | NUR ---
AROUSES TO VERBAL STIMULI. NO VERBAL RESPONSE GIVEN TO QUESTIONS. IV TO LAC INTACT WIHTOUT REDNESS OR EDEMA NOTED. PEG TUBE PATENT WITH OSMOLITE 1.5 INFUSING AT 25CC/HR. RUIZ PATENT AND DRAINING GREGORIO URINE. TURNED AND POSITIONED FOR COMFORT.
[2020-01-17] VITALS: BP 109/69
[2020-01-17 04:00] VITALS: BP 146/81
--- NOTE | 2020-01-17 04:16 | NUR ---
I have reviewed this patient and I concur with the Shift Assessment completed by the Licensed Practical Nurse today this shift.
[2020-01-17 05:23] LABS: ANION GAP 10.5 mmol/L (8-16); BILIRUBIN - TOTAL 0.19 mg/dL (0.2-1.3); CARBON DIOXIDE 30.2 mmol/L (21.0-32.0); CREATININE - SERUM 1.2 mg/dL (0.6-1.3); PROTEIN - SERUM 6.2 g/dL (6.4-8.2)
[2020-01-17 05:28] LABS: POTASSIUM - SERUM 3.7 mmol/L (3.5-5.1)
[2020-01-17 05:34] LABS: BASOPHILS 0.1 % (0-2); HEMATOCRIT 35.4 % (36.0-48.0); HEMOGLOBIN 10.8 g/dL (12-16); IMMATURE GRANULOCYTES 0.7 % (0-5); MCH 31.1 pg (26.0-34.0); MCHC 30.5 g/dL (31.0-37.0); MEAN PLATELET VOLUME 10.3 fL (7.4-10.4); MONOCYTES 4.9 % (2-11); NEUTROPHILS 72.3 % (40-80); PLATELET COUNT 217 10x3/uL (130-400); RBC 3.47 10x6/uL (4.00-5.40); RDW 14.1 % (11.5-14.5); WBC 12.6 10x3/uL (4.8-10.8)
--- NOTE | 2020-01-17 08:10 | NUR ---
ASSESSMENT PER FLOW SHEET. PATIENT SPEAKS FEW WORDS. UNABLE TO TELL ME WHAT SHE WANTS.PATIENT CLEANED INCONT OF BM.EXCORIATION AND PEELING TO BUTTOCKS/PER AND UPPER THIGHS. TURNED PT TO RIGHT.02 2 LITERS.
[2020-01-17 08:41] VITALS: BP 114/30
--- NOTE | 2020-01-17 11:17 | NUR ---
Nutrition follow-up: PEG tube placed with Osmolite 1.5 started; goal rate 40 ml/hr Labs reviewed; Na: 150 H2O flush increased to 150 ml q 4 hours - 900 ml/24 hours + 732 ml free fluid from TF at goal rate. Please get current weight. RDN following.
[2020-01-17 11:45] VITALS: BP 126/70
--- NOTE | 2020-01-17 16:19 | NUR ---
SLEEPING,WITHOUT SIGNS OF DISTRESS.DOOR OPEN ISOLATION MAINTAINED
[2020-01-17 16:40] VITALS: BP 136/55
--- NOTE | 2020-01-17 17:11 | MORECARE ---
CASE MANAGEMENT DISCHARGE SUMMARY PATIENT: KOFI AWAD UNIT: [id number] ADM DATE: 12/24/19 AGE: 74 : [birth year] SEX: F ROOM/BED: D.2236 AUTHOR: GAGAN,DOC PHYSICIAN: REFERRING PHYSICIAN: KIRILL PONCE MD DATE OF SERVICE: 01/17/20 Discharge Plan Patient Name: KOFI AWAD Facility: [facility]:[place] : 1945 Planned Disposition: Nursing Facility [facility] Cert Anticipated Discharge Date: Discharge Date: Expected LOS: Initial Reviewer: [email or web address] Initial Review Date: 12/24/2019 Generated: 01/17/20 6:10 pm Comments DCP- Discharge Planning Updated by [id number]: Mayra Peña on 01/17/20 4:[address] Patient Name: KOFI AWAD Admission Status: ER Accout number: [id number] Admission Date: 12-24-2019 : 1945 Admission Diagnosis:SEPSIS, UNSPECIFIED ORGANISM Attending: DASIA Current LOS: 24 Anticipated DC Date: Planned Disposition: Nursing Facility [facility] Cert Primary Insurance: MEDICARE A & B Discharge Planning Comments: ANTICIPATE POSSIBLE DC TOMORROW. FAXED UPDATED CLINICALS TO [facility]. Reel Cutter: Mayra Peña DCP- Discharge Planning Updated by [email or web address]: Mayra Peña on 01/12/20 11:[address] Patient Name: KOFI AWAD Admission Status: ER Accout number: [id number] Admission Date: 12-24-2019 : 1945 Admission Diagnosis:SEPSIS, UNSPECIFIED ORGANISM Attending: DASIA Current LOS: 19 Anticipated DC Date: Planned Disposition: Nursing Facility [facility] Cert Primary Insurance: MEDICARE A & B Discharge Planning Comments: CALLED [facility] YESTERDAY AND THEY ARE FAXING US INFORMATION ON HER. JOY IS SISTER THAT LIVES OUT OF STATE. CM WILL FOLLOW AND ASSIST NEEDED. Reel Cutter: Mayra Peña DCP- Discharge Planning Updated by [email or web address]: Trena Quintero on 12/24/19 1:[address] Patient Name: KOFI AWAD Admission Status: ER Accout number: [id number] Admission Date: 12-24-2019 : 1945 Admission Diagnosis: Attending: DASIA Current LOS: 1 Anticipated DC Date: Planned Disposition: Nursing Facility [facility] Primary Insurance: MEDICARE A & B Discharge Planning Comments: PATIENT IS A RESIDENT AT [facility] [phone] PLAN IS FOR HER TO RETURN THERE UPON DISCHARGE. CM WILL CONTINUE TO FOLLOW AND ASSIST NEEDED WITH DISCHARGE PLANNING / NEEDS. Reel Cutter: Trena Quintero DCPIA - Discharge Planning Initial Assessment Updated by [email or web address]: Trena Quintero on 12/24/19 2:29 pm * Is the patient Alert and Oriented? Yes * How many steps to enter\exit or inside your home? * PCP [facility] * Pharmacy [facility] * Preadmission Environment [facility] * Facility Name [facility] * ADLs Partial Dependent * List name and contact numbers for known caregivers / representatives who currently or will assist patient after discharge: JYOTI RAMOS - SISTER -[phone] DAMIEN PISANO - SISTER - [phone], * Verbal permission to speak to the caregivers and representatives has been obtained from the patient. N/A * Additional services required to return to the preadmission environment? No * Can the patient safely return to the preadmission environment? Yes * Has this patient been hospitalized within the prior 30 days at any hospital? No Last DP export: 01/12/20 11:51 a Patient Name: KOFI AWAD Page 04398 at 1711 All edits/amendments must be made on the electronic document DICTATION DATE: 01/17/201709 WELFARE INTERVIEWER: SAUL 01/17/201709 RPT#: [id number] DC DATE: STATUS: ADM IN [facility] [address] [place] [address] END OF REPORT
[2020-01-17 20:00] VITALS: BP 148/88
[2020-01-18] VITALS: BP 136/61
--- NOTE | 2020-01-18 01:00 | NUR ---
TUBING FOR PEG TUBE FEEDING CHANGED. NO RESIDUAL NOTED. CTM.
[2020-01-18 04:00] VITALS: BP 129/84
[2020-01-18 05:18] LABS: BASOPHILS 0.2 % (0-2); EOSINOPHILS 3.3 % (0-7); HEMOGLOBIN 10.9 g/dL (12-16); IMMATURE GRANULOCYTES 0.5 % (0-5); LYMPHOCYTES 15.9 % (15-50); MCH 30.5 pg (26.0-34.0); MCHC 30.3 g/dL (31.0-37.0); MCV 100.8 fL (80.0-100.0); MEAN PLATELET VOLUME 10.1 fL (7.4-10.4); MONOCYTES 5.2 % (2-11); NEUTROPHILS 74.9 % (40-80); PLATELET COUNT 228 10x3/uL (130-400); RBC 3.57 10x6/uL (4.00-5.40); RDW 13.9 % (11.5-14.5); WBC 13.2 10x3/uL (4.8-10.8)
[2020-01-18 05:20] LABS: ALBUMIN 2.1 g/dL (3.4-5.0); BILIRUBIN - TOTAL 0.25 mg/dL (0.2-1.3); CALCIUM 9.1 mg/dL (8.5-10.1); CARBON DIOXIDE 32.2 mmol/L (21.0-32.0); CREATININE - SERUM 1.2 mg/dL (0.6-1.3); POTASSIUM - SERUM 4.2 mmol/L (3.5-5.1); PROTEIN - SERUM 6.4 g/dL (6.4-8.2)
--- NOTE | 2020-01-18 06:31 | NUR ---
I have reviewed this patient and I concur with the Shift Assessment completed by the Licensed Practical Nurse today this shift.
--- NOTE | 2020-01-18 06:53 | NUR ---
CANNOT OBTAIN DAILY WEIGHT, PTS BEDSCALE DOES NOT WORK
--- NOTE | 2020-01-18 07:26 | NUR ---
Nutrition follow-up: Chart reviewed Na 153 today after increased H2O flush to 150 ml q 4 hours (900 ml/24 hours) Flush now changed to 50 ml/hr (1200 ml/24 hours) Osmolite infusing @ 40 ml/hr D51/2NS @ 50 ml/hr; KVO at this time 2/2 bag is empty. May need to address IVF RDN following.
[2020-01-18 08:42] VITALS: BP 112/67
[2020-01-18 12:45] VITALS: BP 121/57
--- NOTE | 2020-01-18 14:54 | NUR ---
OT NOTE: PT REMAINS IN SAME POSITION WITH HEAD FLEXED TO R SIDE. PERFORMED GENTLE STRETCHING TO NECK; PT BEGINNING TO GET TIGHT ON R SIDE.. FOLLOWING MODERATE STRETCHING INTO NEUTRAL, PROVIDED ROLLED TOWELS TO PREVENT LATERAL CERVICAL FLEXION CONTRACTURE; PROM TO B UE/LES.. PT REMAINS NON VERBAL AND UNABLE TO FOLLOW SIMPLE COMMANDS. KYLE HECK, OTR/L [phone]
--- NOTE | 2020-01-18 16:08 | NUR ---
OT NOTE: PT COMPLETED BUE PROM TOLERATED. PT COMPLETED FACE/HAND HYGIENE WITH TOTAL A. PT COMPLETED POSITIONING TO DECREASE SKIN BREAKDOWN WITH TOTAL A. [phone] THANK YOU,KEITH LARA
[2020-01-18 17:00] VITALS: BP 119/62
[2020-01-18 20:00] VITALS: BP 114/83
--- NOTE | 2020-01-18 21:00 | NUR ---
SUPINE IN BED. DOES NOT ANSWER QUESTIONS. IV INFUSING. NO RESIDUAL NOTED FROM PEG TUBE. CTM.
[2020-01-19] VITALS: BP 131/71
--- NOTE | 2020-01-19 01:39 | NUR ---
I have reviewed this patient and I concur with the Shift Assessment completed by the Licensed Practical Nurse today this shift.
[2020-01-19 04:00] VITALS: BP 115/79
[2020-01-19 09:17] VITALS: BP 136/83
--- NOTE | 2020-01-19 11:18 | NUR ---
Nutrition follow-up: In preperation of discharge, TF formula changed to Jevity 1.2 mandy and the rate increase to goal of 60 ml/hr Na is now WNL; flush changed to 30 ml/hr Labs reviewed Wt: 152# New order entered RDN following.
[2020-01-19 11:29] LABS: ANION GAP 7.8 mmol/L (8-16); CALCIUM 8.5 mg/dL (8.5-10.1); CARBON DIOXIDE 31.6 mmol/L (21.0-32.0); POTASSIUM - SERUM 4.4 mmol/L (3.5-5.1)
[2020-01-19 12:04] LABS: BASOPHILS 0.1 % (0-2); EOSINOPHILS 3.4 % (0-7); HEMATOCRIT 32.9 % (36.0-48.0); IMMATURE GRANULOCYTES 0.7 % (0-5); LYMPHOCYTES 19.4 % (15-50); MCH 30.6 pg (26.0-34.0); MCHC 30.4 g/dL (31.0-37.0); MCV 100.6 fL (80.0-100.0); MEAN PLATELET VOLUME 10.8 fL (7.4-10.4); MONOCYTES 6.3 % (2-11); NEUTROPHILS 70.1 % (40-80); PLATELET COUNT 226 10x3/uL (130-400); RBC 3.27 10x6/uL (4.00-5.40); RDW 13.9 % (11.5-14.5); WBC 12.4 10x3/uL (4.8-10.8)
[2020-01-19 14:41] VITALS: BP 146/86
--- NOTE | 2020-01-19 15:03 | NUR ---
OT NOTE: PROM TO ALL JOINTS. GENTLE CERVICAL STRETCHING DUE TO R LATERAL CERVICAL FLEXION. 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 PT REMAINS NON VERBAL. KYLE HECK, OTR/L
--- NOTE | 2020-01-19 15:14 | NUR ---
PATIENT IN ROOM WITHOUT DISTRESS. TURNED TO LEFT SIDE. DENIES NEEDS. BED LOW POSITION. CALL LIGHT IN REACH. WILL CONTINUE TO MONITOR.
[2020-01-19 17:39] VITALS: BP 125/71
[2020-01-19 18:54] LABS: BILIRUBIN NEGATIVE (NEGATIVE); GLUCOSE NEGATIVE (NEGATIVE); KETONE NEGATIVE (NEGATIVE); NITRITE NEGATIVE (NEGATIVE); UROBILINOGEN NORMAL (NORMAL)
[2020-01-19 20:00] VITALS: BP 127/73
--- NOTE | 2020-01-19 21:00 | NUR ---
SPOKE WITH PEGGY PATEL ABOUT BREAKDOWN ON PTs BUTTOCK AND GROIN AREA AND PTs INABILITY TO MOVE/COMMUNICATE. INFORMED OF ORDER TO DC RUIZ, INSTRUCTED TO LEAVE RUIZ IN PER PEGGY MEJIAS. CTM.
--- NOTE | 2020-01-19 22:30 | NUR ---
ALERT IN BED, SHORTS YES/NO/OKAY RESPONSES TO QUESTIONS, ANSWERS APPROPRIATELY. DENIES NEEDS, CTM.
--- NOTE | 2020-01-19 22:48 | NUR ---
RESIDUAL IS 10, INCREASED TUBE FEEDING BY 10ML/HR TO 50ML/HR. CTM. Y
[2020-01-20] VITALS: BP 120/59
[2020-01-20 04:00] VITALS: BP 117/71
[2020-01-20 04:38] LABS: BASOPHILS 0.1 % (0-2); HEMATOCRIT 32.9 % (36.0-48.0); HEMOGLOBIN 10.1 g/dL (12-16); IMMATURE GRANULOCYTES 0.8 % (0-5); LYMPHOCYTES 20.3 % (15-50); MCH 30.1 pg (26.0-34.0); MCHC 30.7 g/dL (31.0-37.0); MONOCYTES 6.7 % (2-11); NEUTROPHILS 68.1 % (40-80); PLATELET COUNT 224 10x3/uL (130-400); RBC 3.36 10x6/uL (4.00-5.40); RDW 13.5 % (11.5-14.5)
[2020-01-20 04:56] LABS: MCV 97.9 fL (80.0-100.0)
[2020-01-20 05:00] LABS: ANION GAP 9.9 mmol/L (8-16); CARBON DIOXIDE 30.4 mmol/L (21.0-32.0); POTASSIUM - SERUM 4.3 mmol/L (3.5-5.1)
--- NOTE | 2020-01-20 05:10 | NUR ---
I have reviewed this patient and I concur with the Shift Assessment completed by the Licensed Practical Nurse today this shift.
--- NOTE | 2020-01-20 07:39 | NUR ---
ALERT AND ORIENTED TO SELF. LUNGS CLEAR BILATERALLY. HEART SOUNDS S1 AND S2 HEARD IN ALL RICHARD. BOWEL SOUNDS ACTIVE X 4. PEG TO LEFT SIDE PATENT RUNNING JEVITY 1.2 AT 60ML/HR. IV TO RFA PATENT WITHOUT REDNESS. DENIES NEEDS. BED LOW. BED ALARM ON. CALL TIWARI AND PERSONAL ITEMS IN REACH. WILL CONTINUE TO MONITOR.
[2020-01-20 09:03] VITALS: BP 124/49
[2020-01-20 10:12] LABS: FUNGUS MYCOLOGY CULTURE Final report (())
--- NOTE | 2020-01-20 12:31 | NUR ---
OT NOTE: PERFORMED PARTIAL TMT WITH S.T...SPEECH THERAPIST WAS ABLE TO GET PT TO RESPOND TO MUCH MORE THAN I HAVE SEEN HER DO ( HE HAS WORKED WITH THIS PT IN THE PAST).. PT WAS ABLE TO ANSWER 50% OF YES/NO QUESTIONS. ABLE TO PROVIDE SEVERAL 1 WORD RESPONSES. HE WAS ABLE TO PERFORM FEEDING TASKS WITH PT AND SHE WAS ABLE TO TOLERATE PUDDING WITH THIN LIQUID. I ATTEMPTED TO HAVE PT FEED HERSELF BUT SHE IS UNABLE TO PERFORM AT THIS TIME. ASSISTED PT TO EOB WITH MAX ASSIST. PT WITH VERY POOR TRUNK STRENGTH EXHIBITING FORWARD FLEXED HEAD AND TRUNK.. REQUIRED MAX ASSIST FOR STATIC SITTING AND MAX ASSIST TO MAINTAIN NEUTRAL UPRIGHT POSITION FOR HEAD. PT COULD NOT DEMONSTRATE AROM WITH UE/LES..PT HAD HAND ROLLS IN B HANDS WITH WRISTS IN FLEXED POSITION. PERFORMED EXTENSIVE PROM TO B UE/LES.. PT WITH WHAT APPEARS TO BE LARGE PLANTER WARTS ON BOTTOM OF B FEET. DURING PROM, IT WAS VERY DIFFICULT TO PASSIVELY DORSIFLEX B ANKLES..PT MAY REQUIRE USE OF POSITIONING BOOTS TO PREVENT PLANTAR FLEX CONTRACTURES. ALSO, PERFORMED EXTENSIVE POSITIONING AND MYOFACIAL RELEASE TO R STERNOCLEIDOMASTOID, FOLLOWED BY POSITIONING OF HEAD IN NEUTRAL POSITION WITH USE OF TOWEL TO SUPPORT. PT DEFINITELY MORE ALERT AND VERBALLY RESPONSIVE TODAY. KYLE HECK, OTR/L [phone]
--- NOTE | 2020-01-20 12:38 | NUR ---
RESTING IN BED. NO SIGNS PAIN OR DISTRESS. DENIES NEEDS. WILL CONTINUE TO MONITOR.
[2020-01-20 13:00] VITALS: BP 130/76
[2020-01-20 17:36] VITALS: BP 132/76
--- NOTE | 2020-01-20 18:31 | NUR ---
OT NOTE: PT COMPLETED UE AAROM TOLERATED. PT MORE RESPONSIVE TODAY. PT COMPLETED UB HYGIENE TASKS WITH MIN/MOD A. [phone] THANK YOU,KEITH LARA
[2020-01-20 20:00] VITALS: BP 131/66
--- NOTE | 2020-01-20 20:00 | NUR ---
PATIENT RESTING IN BED WITH EYES CLOSED. NO S/S OF ACUTE DISTRESS. NO C/O AT THIS TIME. PATIENT IS ON DROPLET PRECAUTIONS. PATIENT IS ON 1.5L OF O2. PATIENT HAS RIGHT FOREARM, D5 @ 50ML/HR. IV IS PATENT WITHOUT REDNESS, SWELLING, OR TENDERNESS. PATIENT HAS A PEG-TUBE ON LEFT SIDE, JEVITY 1.2 @ 60 ML/HR WITH A 30 ML/HR FLUSH. PATIENT HAS A DRESSING ON COCCYX. PATIENT HAS HEEL PROTECTORS ON. PATIENT HAS RUIZ AND IS INCONTINENT OF BOWEL. CALL LIGHT WITHIN REACH. WILL CONTINUE TO MONITOR.
--- NOTE | 2020-01-21 01:09 | NUR ---
I have reviewed this patient and I concur with the Shift Assessment completed by the Licensed Practical Nurse today this shift.
[2020-01-21 04:00] VITALS: BP 145/70
[2020-01-21 05:30] LABS: BASOPHILS 0.1 % (0-2); EOSINOPHILS 3.1 % (0-7); HEMATOCRIT 30.8 % (36.0-48.0); HEMOGLOBIN 9.5 g/dL (12-16); IMMATURE GRANULOCYTES 1.3 % (0-5); LYMPHOCYTES 19.6 % (15-50); MCH 30.1 pg (26.0-34.0); MCHC 30.8 g/dL (31.0-37.0); MCV 97.5 fL (80.0-100.0); MEAN PLATELET VOLUME 10.3 fL (7.4-10.4); MONOCYTES 6.4 % (2-11); NEUTROPHILS 69.5 % (40-80); PLATELET COUNT 254 10x3/uL (130-400); RBC 3.16 10x6/uL (4.00-5.40); RDW 13.5 % (11.5-14.5); WBC 9.6 10x3/uL (4.8-10.8)
[2020-01-21 05:42] LABS: ANION GAP 8.3 mmol/L (8-16); CALCIUM 8.8 mg/dL (8.5-10.1); CARBON DIOXIDE 30.8 mmol/L (21.0-32.0); POTASSIUM - SERUM 4.1 mmol/L (3.5-5.1)
--- NOTE | 2020-01-21 07:23 | NUR ---
ALERT AND ORIENTED TO SELF. LUNGS CLEAR BILATERALLY. HEART SOUNDS S1 AND S2 HEARD IN ALL RICHARD. BOWEL SOUNDS ACTIVE X 4. IV TO RFA PATENT WITHOUT REDNESS. LEFT PEG TUBE PATENT RUNNING JEVITY 1.2 AT 60ML/HR. BED LOW. BED ALARM ON. CALL TIWARI AND PERSONAL ITEMS IN REACH. WILL CONTINUE TO MONITOR.
--- NOTE | 2020-01-21 08:24 | NUR ---
FEED FLUSH RATE DECREASED TO 25/HR PER ORDER.
--- NOTE | 2020-01-21 09:05 | MORECARE ---
CASE MANAGEMENT DISCHARGE SUMMARY PATIENT: KFOI AWAD UNIT: [id number] ADM DATE: 12/24/19 AGE: 74 : [birth year] SEX: F [facility] AUTHOR: GAGAN,DOC PHYSICIAN: REFERRING PHYSICIAN: KIRILL PONCE MD DATE OF SERVICE: 01/21/20 Discharge Plan Patient Name: KOFI AWAD Facility: [facility]:[place] : 1945 Planned Disposition: Nursing Facility [facility] Cert Anticipated Discharge Date: Discharge Date: Expected LOS: Initial Reviewer: [email or web address] Initial Review Date: 12/24/2019 Generated: 01/21/20 10:04 am Comments DCP- Discharge Planning Updated by [email or web address]: Mayra Peña on 01/21/20 7:[address] Patient Name: KOFI AWAD Admission Status: ER Accout number: [id number] Admission Date: 12-24-2019 : 1945 Admission Diagnosis:SEPSIS, UNSPECIFIED ORGANISM Attending: DASIA Current LOS: 28 Anticipated DC Date: Planned Disposition: Nursing Facility [facility] Cert Primary Insurance: MEDICARE A & B Discharge Planning Comments: FAXED UPDATED CLINICALS TO [facility]. ANTICIPATE DC SOON. Web Design Instructor: Mayra Peña DCP- Discharge Planning Updated by [email or web address]: Mayra Peña on 01/17/20 4:[address] Patient Name: KOFI AWAD Admission Status: ER Accout number: [id number] Admission Date: 12-24-2019 : 1945 Admission Diagnosis:SEPSIS, UNSPECIFIED ORGANISM Attending: DASIA Current LOS: 24 Anticipated DC Date: Planned Disposition: Nursing Facility [facility] Cert Primary Insurance: MEDICARE A & B Discharge Planning Comments: ANTICIPATE POSSIBLE DC TOMORROW. FAXED UPDATED CLINICALS TO [facility]. Web Design Instructor: Mayra Peña DCP- Discharge Planning Updated by [email or web address]: Mayra Peña on 01/12/20 11:[address] Patient Name: KOFI AWAD Admission Status: ER Accout number: [id number] Admission Date: 12-24-2019 : 1945 Admission Diagnosis:SEPSIS, UNSPECIFIED ORGANISM Attending: DASIA Current LOS: 19 Anticipated DC Date: Planned Disposition: Nursing Facility [facility] Cert Primary Insurance: MEDICARE A & B Discharge Planning Comments: CALLED [facility] YESTERDAY AND THEY ARE FAXING US INFORMATION ON HER. POA IS SISTER THAT LIVES OUT OF STATE. CM WILL FOLLOW AND ASSIST NEEDED. Web Design Instructor: Mayra Peña DCP- Discharge Planning Updated by [email or web address]: Trena Quintero on 12/24/19 1:[address] Patient Name: KOFI AWAD Admission Status: ER Accout number: [id number] Admission Date: 12-24-2019 : 1945 Admission Diagnosis: Attending: DASIA Current LOS: 1 Anticipated DC Date: Planned Disposition: Nursing Facility [facility] Cert Primary Insurance: MEDICARE A & B Discharge Planning Comments: PATIENT IS A RESIDENT AT [facility] [phone] PLAN IS FOR HER TO RETURN THERE UPON DISCHARGE. CM WILL CONTINUE TO FOLLOW AND ASSIST NEEDED WITH DISCHARGE PLANNING / NEEDS. Web Design Instructor: Trena Quintero DCPIA - Discharge Planning Initial Assessment Updated by [email or web address]: Trena Quintero on 12/24/19 2:29 pm * Is the patient Alert and Oriented? Yes * How many steps to enter\exit or inside your home? * PCP [facility] * Pharmacy [facility] * Preadmission Environment [facility] * Facility Name [facility] * ADLs Partial Dependent * List name and contact numbers for known caregivers / representatives who currently or will assist patient after discharge: JYOTI RAMOS - SISTER -[phone] DAMIEN PISANO - SISTER - [phone], * Verbal permission to speak to the caregivers and representatives has been obtained from the patient. N/A * Additional services required to return to the preadmission environment? No * Can the patient safely return to the preadmission environment? Yes * Has this patient been hospitalized within the prior 30 days at any hospital? No Last DP export: 01/17/20 4:10 p Patient Name: KOFI AWAD Page 47894 at 0905 All edits/amendments must be made on the electronic document DICTATION DATE: 01/21/20903 RETAIL POS SPECIALIST: SAUL 01/21/20903 RPT#: [id number] DC DATE: STATUS: ADM IN [facility] [address] [place] [address] END OF REPORT
[2020-01-21 11:05] VITALS: BP 110/64
[2020-01-21 13:31] VITALS: BP 122/78
--- NOTE | 2020-01-21 13:51 | NUR ---
OT NOTE: REQUIRED ASSIST OF PARKER TODAY. PT ALERT AND WAS ABLE TO ANSWER YES/NO QUESTIONS APPROX 40% OF TIME; BED MOB WITH MOD ASSIST; PT WITH LARGE BM.. PERFORMED HYGIENE AND PERINEAL CARE.. VERY RED AROUND GROIND AREA.. PROVIDED MOISTURE BARRIER CREAM. SUPINE TO SIT WITH MAX ASSIST; MAX ASSIST TO MAINTAIN STATIC SITTING BALANCE WITH MAX ASSIST TO HOLD UP HEAD. CONTINUES WITH EDEMA IN L UE.. RETROGRADE MASSAGE AND ELEVATION TO L UE..PROM TO R UE.. PT NOT USING B UES AT ALL FOR SUPPORT WHILE SITTING ON EOB. TOTAL ASSIST WITH ADLS. REMAINS VERY WEAK. KYLE HECK, OTR/L [phone]
--- NOTE | 2020-01-21 16:45 | NUR ---
REPORT CALLED TO [facility].
--- NOTE | 2020-01-21 17:05 | NUR ---
SPOKE WITH PATIENT'S SISTERS, SOUMYA AND DAMIEN. BOTH MADE AWARE OF DISCHARGE BACK TO [facility] AND DENY FURTHER QUESTIONS. IV REMOVED FROM RFA WITH TIP INTACT. PEG FLUSHED AND CLAMPED FOR DC. AMBULANCE CALLED. PAPERWORK SIGNED BY TWO NURSES.
--- NOTE | 2020-01-21 18:38 | NUR ---
PATIENT DC TO [facility] BY AMBULANCE WITH ALL BELONGINGS.
--- NOTE | 2020-01-21 20:09 | NUR ---
OT NOTE: PT COMPLETED SUPINE TO SIT WITH MAX AX2. PT COMPLETED EOB SITTING BALANCE WITH MAX X2. PT COMPLETED LB HYGIENE TASKS WITH TOTAL A. [phone] THANK YOU,KEITH LARA
--- NOTE | 2020-01-22 18:10 | MORECARE ---
CASE MANAGEMENT DISCHARGE SUMMARY PATIENT: KOFI AWAD UNIT: [id number] ADM DATE: 12/24/19 AGE: 74 : [birth year] SEX: F ROOM/BED: D.2236 AUTHOR: GAGAN,DOC PHYSICIAN: REFERRING PHYSICIAN: KIRILL PONCE MD DATE OF SERVICE: 01/22/20 Discharge Plan Patient Name: KOFI AWAD Facility: [facility]:[place] : 1945 Planned Disposition: Nursing Facility [facility] Cert Anticipated Discharge Date: Discharge Date: 01/21/2020 Expected LOS: Initial Reviewer: [email or web address] Initial Review Date: 12/24/2019 Generated: 01/22/20 7:10 pm Comments DCP- Discharge Planning Updated by [email or web address]: Mayra Peña on 01/21/20 7:[address] Patient Name: KOFI AWAD Admission Status: ER Accout number: [id number] Admission Date: 12-24-2019 : 1945 Admission Diagnosis:SEPSIS, UNSPECIFIED ORGANISM Attending: DASIA Current LOS: 28 Anticipated DC Date: Planned Disposition: Nursing Facility [facility] Cert Primary Insurance: MEDICARE A & B Discharge Planning Comments: FAXED UPDATED CLINICALS TO [facility]. ANTICIPATE DC SOON. Enterprise Resource Planner: Mayra Peña DCP- Discharge Planning Updated by [id number]: Mayra Peña on 01/17/20 4:[address] Patient Name: KOFI AWAD Admission Status: ER Accout number: [id number] Admission Date: 12-24-2019 : 1945 Admission Diagnosis:SEPSIS, UNSPECIFIED ORGANISM Attending: DASIA Current LOS: 24 Anticipated DC Date: Planned Disposition: Nursing Facility [facility] Cert Primary Insurance: MEDICARE A & B Discharge Planning Comments: ANTICIPATE POSSIBLE DC TOMORROW. FAXED UPDATED CLINICALS TO [facility]. Enterprise Resource Planner: Mayra Peña DCP- Discharge Planning Updated by [email or web address]: Mayra Peña on 01/12/20 11:[address] Patient Name: KOFI AWAD Admission Status: ER Accout number: [id number] Admission Date: 12-24-2019 : 1945 Admission Diagnosis:SEPSIS, UNSPECIFIED ORGANISM Attending: DASIA Current LOS: 19 Anticipated DC Date: Planned Disposition: Nursing Facility [facility] Cert Primary Insurance: MEDICARE A & B Discharge Planning Comments: CALLED [facility] YESTERDAY AND THEY ARE FAXING US INFORMATION ON HER. POTiara IS SISTER THAT LIVES OUT OF STATE. CM WILL FOLLOW AND ASSIST NEEDED. Enterprise Resource Planner: Mayra Peña DCP- Discharge Planning Updated by [email or web address]: Trena Quintero on 12/24/19 1:[address] Patient Name: KOFI AWAD Admission Status: ER Accout number: [id number] Admission Date: 12-24-2019 : 1945 Admission Diagnosis: Attending: DASIA Current LOS: 1 Anticipated DC Date: Planned Disposition: Nursing Facility [facility] Cert Primary Insurance: MEDICARE A & B Discharge Planning Comments: PATIENT IS A RESIDENT AT [facility] [phone] PLAN IS FOR HER TO RETURN THERE UPON DISCHARGE. CM WILL CONTINUE TO FOLLOW AND ASSIST NEEDED WITH DISCHARGE PLANNING / NEEDS. Enterprise Resource Planner: Trena Quintero DCPIA - Discharge Planning Initial Assessment Updated by [id number]: Trena Quintero on 12/24/19 2:29 pm * Is the patient Alert and Oriented? Yes * How many steps to enter\exit or inside your home? * PCP [facility] * Pharmacy [facility] * Preadmission Environment [facility] * Facility Name [facility] * ADLs Partial Dependent * List name and contact numbers for known caregivers / representatives who currently or will assist patient after discharge: JYOTI RAMOS - SISTER -[phone] DAMIEN PISANO - SISTER - [phone], * Verbal permission to speak to the caregivers and representatives has been obtained from the patient. N/A * Additional services required to return to the preadmission environment? No * Can the patient safely return to the preadmission environment? Yes * Has this patient been hospitalized within the prior 30 days at any hospital? No Last DP export: 01/21/20 8:05 a Patient Name: KOFI AWAD Page 29270 at 1810 All edits/amendments must be made on the electronic document DICTATION DATE: 01/22/201809 UI DEVELOPER: SAUL 01/22/201809 RPT#: [id number] DC DATE:01/21/20 STATUS: DIS IN [facility] [address] [place] [address] END OF REPORT
== END 2020-01-21 18:47 | DRG 870 ==
LOC: D.ER 05:16 → D.ICU 06:59 → D.MS 06:59 → D.ICU 12-28 04:18 → D.MS 01-06 14:54
PROVIDERS: Emergency Medicine; Family Medicine; Internal Medicine Pulmonary Disease; ADMIT Family Medicine; ATTEND Family Medicine
PROC: 05HY33Z Insertion of Infusion Device into Upper Vein, Percutaneous Approach (ICD-10-PCS; principal; 2019-12-24)
PROC: 5A1955Z Respiratory Ventilation, Greater than 96 Consecutive Hours (ICD-10-PCS; 2019-12-25)
PROC: 0BH17EZ Insertion of Endotracheal Airway into Trachea, Via Natural or Artificial Opening (ICD-10-PCS; 2019-12-25)
PROC: 0B9B8ZZ Drainage of Left Lower Lobe Bronchus, Via Natural or Artificial Opening Endoscopic (ICD-10-PCS; 2019-12-30)
PROC: 0DH63UZ Insertion of Feeding Device into Stomach, Percutaneous Approach (ICD-10-PCS; 2020-01-14)
DX: A41.9 Sepsis, unspecified organism (principal); G93.41 Metabolic encephalopathy; R65.21 Severe sepsis with septic shock; J96.01 Acute respiratory failure with hypoxia; N39.0 Urinary tract infection, site not specified; E87.0 Hyperosmolality and hypernatremia; N17.9 Acute kidney failure, unspecified; G72.81 Critical illness myopathy; R79.89 Other specified abnormal findings of blood chemistry; A49.8 Other bacterial infections of unspecified site; F25.9 Schizoaffective disorder, unspecified; F03.90 Unspecified dementia, unspecified severity, without behavioral disturbance, psychotic disturbance, mood disturbance, and anxiety; F41.8 Other specified anxiety disorders; D50.9 Iron deficiency anemia, unspecified; N18.3 Chronic kidney disease, stage 3 (moderate); R13.10 Dysphagia, unspecified

== ENCOUNTER 2020-01-26 03:10 | Inpatient (IN) | payer MEDICARE ==
[~2020-01-26] VITALS: Ht 167.6 cm; Wt 67.1 kg
[2020-01-26] VITALS (50 sets, daily range): BP systolic 15–137; BP diastolic 22–92
[~2020-01-26 03:10] MED LIST changes: +DONEPEZIL HCL10 MG PO; +NAMENDA10 MG PO; +PROTONIX20 MG PO; +ZYPREXA2.5 MG PO
[2020-01-26 03:51] LABS: BASOPHILS 0.1 % (0-2); EOSINOPHILS 0.1 % (0-7); HEMATOCRIT 42.1 % (36.0-48.0); HEMOGLOBIN 12.8 g/dL (12-16); IMMATURE GRANULOCYTES 0.4 % (0-5); LYMPHOCYTES 16.8 % (15-50); MCH 30.4 pg (26.0-34.0); MCHC 30.4 g/dL (31.0-37.0); MEAN PLATELET VOLUME 9.7 fL (7.4-10.4); MONOCYTES 10.6 % (2-11); RBC 4.21 10x6/uL (4.00-5.40); RDW 14.2 % (11.5-14.5); WBC 10.2 10x3/uL (4.8-10.8)
[2020-01-26 03:55] LABS: PLATELET COUNT 499 10x3/uL (130-400)
[2020-01-26 04:02] LABS: CALC OSMOLALITY 309 mosm/kg (275-300); CARBON DIOXIDE 35.9 mmol/L (21.0-32.0); CHLORIDE - SERUM 105 mmol/L (98-107); CREATININE - SERUM 1.6 mg/dL (0.6-1.3); GLUCOSE 118 mg/dL (74-106); POTASSIUM - SERUM 5.8 mmol/L (3.5-5.1); SODIUM 145 mmol/L (136-145); UREA NITROGEN 69 mg/dL (7-18); eGFR NON AFRICAN AMERICAN 34 mL/min (90-120)
[2020-01-26 04:16] LABS: ALBUMIN 2.4 g/dL (3.4-5.0); ALKALINE PHOSPHATASE 76 U/L (30-120); ALT (SGPT) 28 U/L (10-68); BILIRUBIN - TOTAL 0.34 mg/dL (0.2-1.3); C-REACTIVE PROTEIN 7.8 mg/dL (0.0-0.9); LIPASE 534 U/L (73-393); PRO BNP 2293 pg/mL (0-125); PROTEIN - SERUM 7.9 g/dL (6.4-8.2); TROPONIN-I < 0.017 ng/mL (0.000-0.060)
--- NOTE | 2020-01-26 04:30 | NUR ---
DIPRIVAN STOPPED AT THIS TIME PER VERBAL ORDERS FROM EDP CALEB.
--- NOTE | 2020-01-26 04:42 | NUR ---
VERBAL ORDER FROM EDP ELLIS TO RESUME PROPOFOL AT THIS TIME.
[2020-01-26 06:59] LABS: BILIRUBIN NEGATIVE (NEGATIVE); GLUCOSE NEGATIVE (NEGATIVE); KETONE NEGATIVE (NEGATIVE); NITRITE NEGATIVE (NEGATIVE); UROBILINOGEN NORMAL (NORMAL)
[2020-01-26 07:00] LABS: BACTERIA FEW /hpf (NEGATIVE); RED CELLS - URINE 0-5 /hpf (0-5); WHITE CELLS - URINE 0-5 /hpf (NEGATIVE)
--- NOTE | 2020-01-26 14:20 | NUR ---
RECIEVED REPORT FROM TIA HERNANDEZ.
--- NOTE | 2020-01-26 16:00 | NUR ---
ARRIVED TO UNIT VIA STRETCHER AT 1500, TRANSFERED TO ICU BED AND TOLERATED WELL. PT WAKING ON SEDATION, DOES NOT FOLLOW COMMANDS. ADMISSIONS ASSESSMENT COMPLETE, SEE FLOW SHEET FOR DETAILS. BILATERAL FOOT DROP NOTED. STAGE 2 PU NOTED TO COCCYX. HEMODYNAMICALLY STABLE AT THIS TIME. LEVOPHED AND PROPOFOL INFUSING. WILL CONTINUE TO MONITOR.
--- NOTE | 2020-01-26 17:20 | NUR ---
1700 PATIENT SEDATED, WAKES TO LIGHT TOUCH. HEMODYNAMICALLY STABLE AT THIS TIME. TITRATING LEVOPHED PER ORDERS. WILL CONTINUE PLAN OF CARE.
--- NOTE | 2020-01-26 19:00 | NUR ---
ASSESSMENT COMPLETED PER FLOWSHEETS. PT SEDATED ON VENT. AROUSES WITH VOICES. SR ON CM WITH HRA T 92BPM. LUNG SOUNDS DIMINSHED TO LLB, UNLABORED ON VENT. PPP. FOOT BOOTS IN USE. HOB UP. CONT TO MONITOR.
--- NOTE | 2020-01-26 21:00 | NUR ---
PT RESTING ON VENT WITHOUT DISTRESS. VSS. NO VISITORS AT THIS TIME. CPOC.
--- NOTE | 2020-01-26 23:00 | NUR ---
REASSESSMENT COMPLETED .SEE FLOWSHEET FOR ALL FINDINGS. PT SEDATED ON VENT WITHOUT DISTRESS. VSS. TITRATED LEVOPHED TO KEEP SBP> PER ORDER. CPOC.
[2020-01-27] VITALS (93 sets, daily range): BP systolic 65–133; BP diastolic 35–79; Ht 167.6 cm; Wt 67.1 kg
--- NOTE | 2020-01-27 01:00 | NUR ---
PT RESPOSITIONED FOR COMFORT. PILLOWS IN USE FOR SUPPORT. HEELS ELEVATED. MOUTH CARE AND SUX DONE PER VAP. HOB UP. SIDE RAILS UP. CPOC.
--- NOTE | 2020-01-27 03:00 | NUR ---
REASSESSMENT COMPLETED PER FLOWSHEET. PT SEDATED ON VENT WITHOUT DISTRESS AT THIS TIME. CONT TITRATE LEVOPHED PER ORDER TO KEEP SBP> 90S. CPOC.
[2020-01-27 03:53] LABS: BASOPHILS 0.1 % (0-2); EOSINOPHILS 0.2 % (0-7); IMMATURE GRANULOCYTES 0.6 % (0-5); LYMPHOCYTES 23.8 % (15-50); MCH 30.3 pg (26.0-34.0); MCHC 31.2 g/dL (31.0-37.0); MEAN PLATELET VOLUME 9.7 fL (7.4-10.4); MONOCYTES 9.1 % (2-11); NEUTROPHILS 66.2 % (40-80); WBC 10.8 10x3/uL (4.8-10.8)
[2020-01-27 04:07] LABS: HEMATOCRIT 29.8 % (36.0-48.0); HEMOGLOBIN 9.3 g/dL (12-16); MCV 97.1 fL (80.0-100.0); PLATELET COUNT 387 10x3/uL (130-400); RBC 3.07 10x6/uL (4.00-5.40)
[2020-01-27 04:09] LABS: BILIRUBIN - TOTAL 0.31 mg/dL (0.2-1.3); CALCIUM 8.5 mg/dL (8.5-10.1); CARBON DIOXIDE 27.1 mmol/L (21.0-32.0); CREATININE - SERUM 1.6 mg/dL (0.6-1.3); MAGNESIUM - SERUM 2.4 mg/dL (1.8-2.4); PHOSPHOROUS 3.4 mg/dL (2.5-4.9)
[2020-01-27 04:25] LABS: ANION GAP 13.8 mmol/L (8-16); POTASSIUM - SERUM 3.9 mmol/L (3.5-5.1)
[2020-01-27 04:26] LABS: PROTEIN - SERUM 5.7 g/dL (6.4-8.2)
--- NOTE | 2020-01-27 07:00 | NUR ---
REC'D REPORT AND RESUMED CARE, ETT TO VENTILATION AND SECURED, SETTINGS PER FLOWSHEET, VSS, AROUSES TO VOICE, DOES NOT FOLLOW COMMANDS, PEG TUBE CLAMPED, RUIZ TO GRAVITY WITH CONCENTRATED DRAINAGE TO BAG, HEEL PROTECTORS IN USE, ASSESSMENT COMPLETED PER FLOWSHEET, REPOSITIONED TO LEFT SIDE WITH PILLOW PROPPED TO BACK AND HEELS FLOATED
--- NOTE | 2020-01-27 08:30 | NUR ---
MORN[facility]
--- NOTE | 2020-01-27 11:30 | NUR ---
PC FROM [facility], GRAM POSITIVE COCCI IN BLOOD CULTURE, TEMPORARY CONTACT ISOLATION IMPLEMENTED
--- NOTE | 2020-01-27 15:00 | NUR ---
RESTING WITH EYES OPEN, CONTINUES ON VENT WITH NO SIGN OF DISTRESS, LEVOPHED IN USE, NO ACUTE CHANGE FROM PREVIOUS ASSESSMENT
--- NOTE | 2020-01-27 16:00 | NUR ---
I AN O'S COMPLETED, REPOSITIONED TO BACK WITH HEELS FLOATED
--- NOTE | 2020-01-27 17:38 | MORECARE ---
CASE MANAGEMENT DISCHARGE SUMMARY PATIENT: KOFI AWAD UNIT: [id number] ADM DATE: 01/26/20 AGE: 74 : [birth year] SEX: F ROOM/BED: D.2305 AUTHOR: JESSICA FARAH PHYSICIAN: REFERRING PHYSICIAN: KIRILL PONCE MD DATE OF SERVICE: 01/27/20 Discharge Plan Patient Name: KOFI AWAD Facility: [facility]:[place] : 1945 Planned Disposition: Group Home Facility Anticipated Discharge Date: Discharge Date: Expected LOS: Initial Reviewer: [email or web address] Initial Review Date: 01/26/2020 Generated: 01/27/20 6:37 pm Patient Name: KOFI AWAD Page 72606 at 1738 All edits/amendments must be made on the electronic document DICTATION DATE: 01/27/201736 RN GERIATRIC: SAUL 01/27/201736 RPT#: [id number] DC DATE: STATUS: ADM IN [facility] [address] [place] [address] END OF REPORT
--- NOTE | 2020-01-27 17:51 | MORECARE ---
CASE MANAGEMENT DISCHARGE SUMMARY PATIENT: KOFI AWAD UNIT: [id number] ADM DATE: 01/26/20 AGE: 74 : [birth year] SEX: F ROOM/BED: D.2305 AUTHOR: JESSICA FARAH PHYSICIAN: REFERRING PHYSICIAN: KIRILL PONCE MD DATE OF SERVICE: 01/27/20 Discharge Plan Patient Name: KOFI AWAD Facility: [facility]:[place] : 1945 Planned Disposition: Jail Facility Anticipated Discharge Date: Discharge Date: Expected LOS: Initial Reviewer: [email or web address] Initial Review Date: 01/26/2020 Generated: 01/27/20 6:50 pm Comments DCP- Discharge Planning Updated by [email or web address]: Helena Cavazos on 01/27/20 4:[address] PATIENT IS KNOWN TO CASE MANAGEMENT FROM PREVIOUS ADMIT W/ DISCHARGE BACK TO [facility] ON 01/21/2020. PATIENT IS SNF RESIDENT. REPORTEDLY HER SISTER HAS POA AND LIVES OUT OF TOWN PREVIOUS CONTACT PHONE NUMBERS JYOTI RAMOS- [phone] DAMIEN PISANO - [phone]- POA PER FACILITY PATIENT PRESENTED TO ER W/ FEVER, RESP DISTRESS,HYPOTENSION, HYPOXEMIA AND AGONAL RESP. INTUBATED. VENT/ VASOPRESSORS. TELEPHONE CALL TO [facility] PATIENT WAS A FULL CODE AT FACILITY PER THE STAFF. CM TO FOLLOW FOR DISCHARGE PLANNING. WILL NEED TO SPEAK W/ POA. Last DP export: 01/27/20 4:38 pm Patient Name: KOFI AWAD Page 99422 at 1751 All edits/amendments must be made on the electronic document DICTATION DATE: 01/27/201749 WET FINISHER: SAUL 01/27/201749 RPT#: [id number] DC DATE: STATUS: ADM IN [facility] [address] [place] [address] END OF REPORT
--- NOTE | 2020-01-27 19:00 | NUR ---
ASSESSMENT COMPLETED PER FLOWSHEET. PT SEDATED ON VENT, OPEN EYES WITH VOICE, NOT FOLLOW COMMANDS.CONT SEDATION PER ORDER TO SYNCHRONIZED WITH VENT. PPP. HOB UP. SIDE RAILS UP. CONT TO MONITOR.
--- NOTE | 2020-01-27 21:00 | NUR ---
SCHEDULED MEDS GIVEN PER ORDER. CPOC.
--- NOTE | 2020-01-27 23:00 | NUR ---
REASSESSMENT COMPLETED. SEE FLOWSHEET FOR ALL FINDINGS. VSS. CPOC.
[2020-01-28] VITALS (87 sets, daily range): BP systolic 88–116; BP diastolic 39–64
--- NOTE | 2020-01-28 07:00 | NUR ---
REC'D REPORT AND RESUMED CARE, ETT TO VENTILATION AND SECURED, AROUSES TO VOICES DOES NOT FOLLOW COMMANDS, ETT TO VENTILATION ANDN SECURED, VSS.ASSESSMENT COMPLETED PER FLOWSHEET, LEVOPHED, PROPOFAL, AND 1/2NS INFUSING, WILL CONTINUE WITH POC
--- NOTE | 2020-01-28 08:30 | NUR ---
MORNING MEDS GIVEN PER AUG FLOWSHEET
--- NOTE | 2020-01-28 10:46 | NUR ---
Nutrition follow-up: Intubated, sedated with propofol @ 18.9 ml/hr Pulmocare started @ 10 ml/hr with goal rate of 40 ml/hr Labs reviewed Wt: 138# RDN will monitor patients TF tolerance Following.
--- NOTE | 2020-01-28 14:25 | NUR ---
LAB DRAWN BY MECHANICAL SHOP LABORER
[2020-01-28 15:06] LABS: BASOPHILS 0.2 % (0-2); EOSINOPHILS 3.1 % (0-7); HEMATOCRIT 24.4 % (36.0-48.0); IMMATURE GRANULOCYTES 0.7 % (0-5); LYMPHOCYTES 9.9 % (15-50); MCH 30.2 pg (26.0-34.0); MCHC 30.3 g/dL (31.0-37.0); MEAN PLATELET VOLUME 9.8 fL (7.4-10.4); MONOCYTES 4.2 % (2-11); NEUTROPHILS 81.9 % (40-80); RDW 14.2 % (11.5-14.5); WBC 10.9 10x3/uL (4.8-10.8)
[2020-01-28 15:07] LABS: RBC 2.45 10x6/uL (4.00-5.40)
[2020-01-28 15:08] LABS: HEMOGLOBIN 7.4 g/dL (12-16); MCV 99.6 fL (80.0-100.0); PLATELET COUNT 284 10x3/uL (130-400)
[2020-01-28 15:13] LABS: ALBUMIN 1.6 g/dL (3.4-5.0); BILIRUBIN - TOTAL 0.22 mg/dL (0.2-1.3); CALCIUM 7.7 mg/dL (8.5-10.1); CARBON DIOXIDE 22.7 mmol/L (21.0-32.0); MAGNESIUM - SERUM 2.3 mg/dL (1.8-2.4); PROTEIN - SERUM 5.1 g/dL (6.4-8.2); VANCOMYCIN - RANDOM 13.4 ug/mL (10.0-20.0)
[2020-01-28 15:14] LABS: ANION GAP 15.5 mmol/L (8-16); PHOSPHOROUS 4.4 mg/dL (2.5-4.9); POTASSIUM - SERUM 3.2 mmol/L (3.5-5.1)
--- NOTE | 2020-01-28 20:53 | NUR ---
UNABLE TO OBTAIN BLOOD FOR LAB DRAW. UNABLE TO OBTAIN PIV X2 RN. SHARLA SORENSEN NOTIFIED OF WITH N/O FOR SURGERY CONSULT FOR CVL PLACEMENT. 2049 DR LAMB, ON-CALL, PAGED PER ANSWERING SERVICE. 2056 DR LAMB AWARE AND PLANS TO COME AND START CVL
--- NOTE | 2020-01-28 22:05 | NUR ---
2110 CONSENT RECEIVED FOR BLOOD PRODUCTS AND CVL PLACEMENT. 2200 DR LAMB AT BEDSIDE
--- NOTE | 2020-01-28 22:52 | NUR ---
DR LAMB STATED OK TO USE CENTRAL LINE
[2020-01-29] VITALS (76 sets, daily range): BP systolic 99–132; BP diastolic 44–74
[2020-01-29 06:51] LABS: BASOPHILS 0.2 % (0-2); EOSINOPHILS 3.4 % (0-7); HEMATOCRIT 29.4 % (36.0-48.0); HEMOGLOBIN 9.1 g/dL (12-16); IMMATURE GRANULOCYTES 2.1 % (0-5); LYMPHOCYTES 8.7 % (15-50); MCH 29.4 pg (26.0-34.0); MEAN PLATELET VOLUME 9.9 fL (7.4-10.4); MONOCYTES 5.6 % (2-11); PLATELET COUNT 311 10x3/uL (130-400); RDW 14.9 % (11.5-14.5); WBC 10.3 10x3/uL (4.8-10.8)
[2020-01-29 06:52] LABS: MCV 94.8 fL (80.0-100.0)
[2020-01-29 07:09] LABS: ALBUMIN 1.6 g/dL (3.4-5.0); BILIRUBIN - TOTAL 0.2 mg/dL (0.2-1.3); CALCIUM 8.1 mg/dL (8.5-10.1); CARBON DIOXIDE 20.8 mmol/L (21.0-32.0); MAGNESIUM - SERUM 2.3 mg/dL (1.8-2.4); PHOSPHOROUS 3.9 mg/dL (2.5-4.9)
[2020-01-29 07:25] LABS: ANION GAP 14.8 mmol/L (8-16); POTASSIUM - SERUM 2.6 mmol/L (3.5-5.1)
--- NOTE | 2020-01-29 19:30 | NUR ---
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
[2020-01-30] VITALS (39 sets, daily range): BP systolic 91–115; BP diastolic 40–66
[2020-01-30 06:15] LABS: BASOPHILS 0.4 % (0-2); EOSINOPHILS 3.9 % (0-7); HEMATOCRIT 29.5 % (36.0-48.0); IMMATURE GRANULOCYTES 9.7 % (0-5); LYMPHOCYTES 5.9 % (15-50); MCH 28.8 pg (26.0-34.0); MCHC 30.5 g/dL (31.0-37.0); MCV 94.6 fL (80.0-100.0); MEAN PLATELET VOLUME 9.9 fL (7.4-10.4); MONOCYTES 4.1 % (2-11); PLATELET COUNT 272 10x3/uL (130-400); RBC 3.12 10x6/uL (4.00-5.40); RDW 15.5 % (11.5-14.5); WBC 9.1 10x3/uL (4.8-10.8)
[2020-01-30 06:37] LABS: ALBUMIN 1.4 g/dL (3.4-5.0); ANION GAP 15.4 mmol/L (8-16); BILIRUBIN - TOTAL 0.27 mg/dL (0.2-1.3); CALCIUM 8.4 mg/dL (8.5-10.1); CARBON DIOXIDE 20.5 mmol/L (21.0-32.0); MAGNESIUM - SERUM 2.1 mg/dL (1.8-2.4); PHOSPHOROUS 3.7 mg/dL (2.5-4.9); PROTEIN - SERUM 5.7 g/dL (6.4-8.2)
[2020-01-30 06:41] LABS: POTASSIUM - SERUM 2.9 mmol/L (3.5-5.1)
--- NOTE | 2020-01-30 09:28 | OP ---
PATIENT NAME: KOFI AWAD MEDICAL RECORD: [id number] :49 LOCATION:D.ICU D.2305 ADMISSION DATE:01/26/20 SURGEON: WILMER ALMB MD DATE OF OPERATION: 01/28/2020 PREOPERATIVE DIAGNOSES: 1. Need for IV access. 2. Acute respiratory failure on the ventilator. 3. Pneumonia. 4. Alzheimer dementia. POSTOPERATIVE DIAGNOSES: 1. Need for IV access. 2. Acute respiratory failure on the ventilator. 3. Pneumonia. 4. Alzheimer dementia. PROCEDURE: Left subclavian vein triple-lumen central venous line placement. SURGEON: Wilmer Lamb MD REPORT OF PROCEDURE: The patient's left chest was prepped and draped in sterile fashion. A total of 5 cc of 1% lidocaine was infused into the subcutaneous tissues. A needle was used to cannulate the left subclavian vein and a guidewire was advanced with ease. Over this wire, a dilator was placed followed by the triple lumen catheter. The catheter aspirated nonpulsatile dark blood and flushed easily in all 3 ports. This was sutured into place with 3-0 nylons and dressed appropriately. COMPLICATIONS: None. CONDITION: Stable. ANESTHESIA: General endotracheal and local. BLOOD LOSS: Minimal. Procedure done in the ICU at the bedside. TRANSINT:[id number] Voice Confirmation ID: [id number] DOCUMENT ID: [id number] WILMER LAMB MD at 0928 CC: [id number] DICTATION DATE: 01/28/20 2215 PEACE OFFICER: 01/29/20 0515 ADM IN [place] [id number] [place] [address]
[2020-01-31] VITALS (24 sets, daily range): BP systolic 95–137; BP diastolic 40–69
[2020-01-31 04:37] LABS: BASOPHILS 0.5 % (0-2); EOSINOPHILS 4.5 % (0-7); HEMATOCRIT 28.2 % (36.0-48.0); HEMOGLOBIN 8.7 g/dL (12-16); IMMATURE GRANULOCYTES 15.7 % (0-5); LYMPHOCYTES 11.1 % (15-50); MCH 29.6 pg (26.0-34.0); MCHC 30.9 g/dL (31.0-37.0); MCV 95.9 fL (80.0-100.0); MEAN PLATELET VOLUME 10.2 fL (7.4-10.4); MONOCYTES 7.3 % (2-11); NEUTROPHILS 60.9 % (40-80); PLATELET COUNT 260 10x3/uL (130-400); RBC 2.94 10x6/uL (4.00-5.40); RDW 15.7 % (11.5-14.5); WBC 7.6 10x3/uL (4.8-10.8)
[2020-01-31 05:04] LABS: ALBUMIN 1.6 g/dL (3.4-5.0); BILIRUBIN - TOTAL 0.2 mg/dL (0.2-1.3); CALCIUM 8.3 mg/dL (8.5-10.1); CARBON DIOXIDE 21.8 mmol/L (21.0-32.0); PROTEIN - SERUM 5.6 g/dL (6.4-8.2)
[2020-01-31 05:05] LABS: ANION GAP 12.1 mmol/L (8-16); POTASSIUM - SERUM 3.9 mmol/L (3.5-5.1)
--- NOTE | 2020-01-31 06:56 | NUR ---
Nutrition follow-up: Intubated, sedated with propofol Pulmocare @ 40 ml/hr goal via PEG tube Labs reviewed wt: 149# RND following,.
[2020-02-01] VITALS (23 sets, daily range): BP systolic 85–139; BP diastolic 40–81
[2020-02-01 06:54] LABS: BASOPHILS 0.8 % (0-2); EOSINOPHILS 4.2 % (0-7); HEMATOCRIT 29.2 % (36.0-48.0); IMMATURE GRANULOCYTES 15.7 % (0-5); LYMPHOCYTES 18.6 % (15-50); MCH 29.6 pg (26.0-34.0); MCHC 30.8 g/dL (31.0-37.0); MCV 96.1 fL (80.0-100.0); MEAN PLATELET VOLUME 10.3 fL (7.4-10.4); NEUTROPHILS 52.7 % (40-80); PLATELET COUNT 264 10x3/uL (130-400); RBC 3.04 10x6/uL (4.00-5.40); RDW 15.8 % (11.5-14.5); WBC 9.1 10x3/uL (4.8-10.8)
[2020-02-01 06:56] LABS: ALBUMIN 1.9 g/dL (3.4-5.0); ANION GAP 14.3 mmol/L (8-16); BILIRUBIN - TOTAL 0.2 mg/dL (0.2-1.3); CALCIUM 8.5 mg/dL (8.5-10.1); CARBON DIOXIDE 20.9 mmol/L (21.0-32.0); POTASSIUM - SERUM 4.2 mmol/L (3.5-5.1); PROTEIN - SERUM 5.9 g/dL (6.4-8.2)
--- NOTE | 2020-02-01 14:38 | NUR ---
[address] SCHNEIDER
[2020-02-02] VITALS (27 sets, daily range): BP systolic 97–144; BP diastolic 46–107
[2020-02-02 06:45] LABS: HEMATOCRIT 28.5 % (36.0-48.0); HEMOGLOBIN 8.7 g/dL (12-16); MCH 29.5 pg (26.0-34.0); MCHC 30.5 g/dL (31.0-37.0); MCV 96.6 fL (80.0-100.0); MEAN PLATELET VOLUME 9.9 fL (7.4-10.4); RBC 2.95 10x6/uL (4.00-5.40); RDW 15.7 % (11.5-14.5); WBC 8.6 10x3/uL (4.8-10.8)
[2020-02-02 06:46] LABS: PLATELET COUNT 206 10x3/uL (130-400)
[2020-02-02 07:13] LABS: ANION GAP 14.4 mmol/L (8-16); CALCIUM 8.5 mg/dL (8.5-10.1); CARBON DIOXIDE 20.7 mmol/L (21.0-32.0); POTASSIUM - SERUM 4.1 mmol/L (3.5-5.1)
[2020-02-02 07:25] LABS: BILIRUBIN - TOTAL 0.22 mg/dL (0.2-1.3); PROTEIN - SERUM 5.7 g/dL (6.4-8.2)
[2020-02-02 08:22] LABS: EOSINOPHILS 4 % (0-7); LYMPHOCYTES 20 % (15-50); MONOCYTES 8 % (2-11); NEUTROPHILS 49 % (40-80); PLATELET ESTIMATE NORMAL
--- NOTE | 2020-02-02 08:47 | NUR ---
[address] SCHNEIDER OF LACTIC ACID CRITICAL LOW ON ABGS
--- NOTE | 2020-02-02 10:51 | NUR ---
Nutrition follow-up: Intubated, sedated wtih propofol @ 9.7 ml/hr Pulmocare @ 30 ml/hr Labs reviewed 25 ml H2O flush q hour added today Wt: 146# RDN following.
--- NOTE | 2020-02-02 12:08 | NUR ---
1200 ALLOWED MOTHER TO SPEAK WITH PATIENT ON THE PHONE PULLED OUT HIS IV
[2020-02-02 15:12] LABS: FUNGUS STAIN Final report (())
[2020-02-02 17:09] LABS: ACID FAST SMEAR Negative (()); AFB SPECIMEN PROCESSING Concentration (())
[2020-02-03] VITALS (24 sets, daily range): BP systolic 88–121; BP diastolic 39–69
[2020-02-03 05:35] LABS: HEMATOCRIT 26.2 % (36.0-48.0); HEMOGLOBIN 8.1 g/dL (12-16); LYMPHOCYTES 18.6 % (15-50); MCH 29.6 pg (26.0-34.0); MCHC 30.9 g/dL (31.0-37.0); MCV 95.6 fL (80.0-100.0); MEAN PLATELET VOLUME 8.9 fL (7.4-10.4); PLATELET COUNT 204 10x3/uL (130-400); RBC 2.74 10x6/uL (4.00-5.40); RDW 14.4 % (11.5-14.5); WBC 8.7 10x3/uL (4.8-10.8)
[2020-02-03 06:12] LABS: ALBUMIN 2.1 g/dL (3.4-5.0); ANION GAP 14.2 mmol/L (8-16); BILIRUBIN - TOTAL 0.22 mg/dL (0.2-1.3); CALCIUM 8.7 mg/dL (8.5-10.1); CARBON DIOXIDE 20.6 mmol/L (21.0-32.0); CREATININE - SERUM 1.1 mg/dL (0.6-1.3); POTASSIUM - SERUM 3.8 mmol/L (3.5-5.1); PROTEIN - SERUM 5.5 g/dL (6.4-8.2)
--- NOTE | 2020-02-03 09:09 | NUR ---
PS TRIAL 03/27
--- NOTE | 2020-02-03 09:30 | NUR ---
BATH GIVEN LINENS CHANGED AND TURNED TO RIGHT SIDE
--- NOTE | 2020-02-03 10:43 | NUR ---
FAILED PS TRIAL. RR INCREASED TO 40
[2020-02-04] VITALS (23 sets, daily range): BP systolic 87–125; BP diastolic 40–70
[2020-02-04 04:18] LABS: BASOPHILS 0.1 % (0-2); EOSINOPHILS 2.2 % (0-7); HEMOGLOBIN 7.8 g/dL (12-16); IMMATURE GRANULOCYTES 5.3 % (0-5); LYMPHOCYTES 16.1 % (15-50); MCH 29.5 pg (26.0-34.0); MCHC 31.2 g/dL (31.0-37.0); MCV 94.7 fL (80.0-100.0); MEAN PLATELET VOLUME 9.8 fL (7.4-10.4); MONOCYTES 3.4 % (2-11); NEUTROPHILS 72.9 % (40-80); PLATELET COUNT 199 10x3/uL (130-400); RBC 2.64 10x6/uL (4.00-5.40); RDW 14.7 % (11.5-14.5); WBC 8.5 10x3/uL (4.8-10.8)
[2020-02-04 04:32] LABS: ALBUMIN 2.1 g/dL (3.4-5.0); ANION GAP 16.7 mmol/L (8-16); BILIRUBIN - TOTAL 0.41 mg/dL (0.2-1.3); CALCIUM 8.6 mg/dL (8.5-10.1); CARBON DIOXIDE 20.2 mmol/L (21.0-32.0); POTASSIUM - SERUM 3.9 mmol/L (3.5-5.1); PROTEIN - SERUM 5.6 g/dL (6.4-8.2)
--- NOTE | 2020-02-04 06:47 | NUR ---
Pt resting in bed and has been turned and repositioned for comfort, oral care was provided regularly. No distress noted, call light in reach, bed in low position.
--- NOTE | 2020-02-04 09:56 | NUR ---
NUTRITION F/U PT REMAINS ON VENT. TOLERATING PULMOCARE AT 40 CC/HR. WILL CONTINUE TO PROVIDE TUBE FEEDS, MONITOR PT PROGRESS. RD FOLLOWING
--- NOTE | 2020-02-04 14:44 | NUR ---
BLOOD TRANSFUSION STARTED. VSS. WILL CONT TO MONITOR.
--- NOTE | 2020-02-04 20:02 | NUR ---
REPORT RECIEVED AND SHIFT ASSESSMENT COMPLETE, PLEASE SEE FLOW SHEETS FOR DETAILS. ORAL CARE AND TURNING PROVIDED. WILL CONTINUE CURRENT PLAN OF CARE.
[2020-02-05] VITALS (24 sets, daily range): BP systolic 87–114; BP diastolic 35–63
--- NOTE | 2020-02-05 01:43 | NUR ---
TEMP 100.4 AT 2300, RECHECK AT 0135 AT 101.6, APAP ADMINISTERED PER ORDERS.
[2020-02-05 04:32] LABS: BASOPHILS 0.1 % (0-2); EOSINOPHILS 1.9 % (0-7); HEMATOCRIT 28.8 % (36.0-48.0); HEMOGLOBIN 9.1 g/dL (12-16); IMMATURE GRANULOCYTES 4.2 % (0-5); LYMPHOCYTES 11.2 % (15-50); MCH 28.9 pg (26.0-34.0); MCHC 31.6 g/dL (31.0-37.0); MEAN PLATELET VOLUME 9.5 fL (7.4-10.4); NEUTROPHILS 78.6 % (40-80); PLATELET COUNT 173 10x3/uL (130-400); RBC 3.15 10x6/uL (4.00-5.40); RDW 15.9 % (11.5-14.5); WBC 7.3 10x3/uL (4.8-10.8)
[2020-02-05 04:35] LABS: MCV 91.4 fL (80.0-100.0)
[2020-02-05 05:01] LABS: ALBUMIN 2.2 g/dL (3.4-5.0); BILIRUBIN - TOTAL 0.38 mg/dL (0.2-1.3); CALCIUM 8.5 mg/dL (8.5-10.1); CARBON DIOXIDE 18.7 mmol/L (21.0-32.0); POTASSIUM - SERUM 3.7 mmol/L (3.5-5.1); PROTEIN - SERUM 5.7 g/dL (6.4-8.2)
--- NOTE | 2020-02-05 07:00 | NUR ---
BEDSIDE REPORT RECEIVED. SHIFT ASSESSMENT COMPLETED PER FLOWSHEET, SEE FLOWSHEET FOR INFORMATION. PT INTUBATED AND SEDATED. TEMP IS 102, TYLENOL GIVEN PER EMAR. WILL CONT TO MONITOR.
--- NOTE | 2020-02-05 10:50 | NUR ---
SPOKE WITH DAMIEN PISANO SISTER AND OBTAINED CONSENT FOR A TRACH, WITNESSED BY LISSA HERNANDEZ. WENT INTO GREAT DETAIL ABOUT TRACH SURGERY. ALL DAMIEN WOULD SAY WAS "SO SHE'LL LIVE RIGHT? SO SHE'LL BE ALIVE?" EXPLAINED TO HER THE QUALITY OF LIFE EXPECTANCE. WILL CONT TO MONITOR.
--- NOTE | 2020-02-05 14:00 | NUR ---
CHG BEDBATH GIVEN. WILL CONT TO MONITOR.
[2020-02-06] VITALS (17 sets, daily range): BP systolic 86–124; BP diastolic 31–74
--- NOTE | 2020-02-06 07:00 | NUR ---
BEDSIDE REPORT RECEIVED. SHIFT ASSESSMENT COMPLETED PER FLOWSHEET, SEE FLOWSHEET FOR INFORMATION. ORAL AND INLINE SUCTIONED, COPIOUS AMOUNTS OF SECRETIONS SUCTIONED, VERY THICK SECRETIONS. VSS. WILL CONT TO MONITOR.
--- NOTE | 2020-02-06 11:40 | NUR ---
GAVE UPDATE TO , HE HAS DECIDED NOT TO DO THE SURGERY DUE TO THE PERSISTENT FEVER. NOTIFIED THE SISTER DAMIEN PISANO OF UPDATE. SPOKE WITH DAMIEN ABOUT PT COONDITION. WILL CONT TO MONITOR.
--- NOTE | 2020-02-06 12:26 | NUR ---
DAMIEN PISANO SISTER TO PT STATED THAT TERMINAL EXTUBATION WAS THE BEST DECISION FOR THE PT. NOTIFIED AND . NEW ORDERS RECEIVED. WILL CONT TO [id number].
--- NOTE | 2020-02-06 13:00 | NUR ---
PT TERMINALLY EXTUBATED PER FAMILY REQUEST. COPIOUS AMOUNTS OF BLOODY SECRETIONS NOTED. SUCTIONED MULTIPLE TIMES. O2 SATURATION DECLINED TO 71% ON 2 LITERS NC. PT BP IS WNL AND HR IS 104. WILL CONT TO MONITOR.
--- NOTE | 2020-02-06 15:00 | NUR ---
ASSUMED CARE OF PATIENT. PATIENT IS NOW COMFORT MEASURES ONLY, DNR. PATIENT SUCTION PRN AT THIS TIME. O2 SAT 61%, MORPHINE NOW INFUSING AT 1MG/HR VIA CEILING CLEANER. ORAL CARE PROVIDED. PATIENT REMAINS IN DROPLET ISOLATION. CALL LIGHT PLACED WITHIN REACH.
--- NOTE | 2020-02-06 15:50 | NUR ---
MEDICATED WITH ATIVAN PATIENT RESP 38-40.
--- NOTE | 2020-02-06 17:14 | NUR ---
ATTEMPTED TO CALL AND UPDATE PATIENTS SISTERS AT PHONE NUMBERS [phone] (JYOTI) AND DAMIEN AT [phone], NO ANSWER AT EITHER NUMBER.
--- NOTE | 2020-02-06 17:19 | NUR ---
PATIENT TO BE TRANSFERRED TO ROOM 2240.
--- NOTE | 2020-02-06 18:00 | NUR ---
PATIENT IN BED WITH IV INTACT. ON COMFORT MEASURES AT THIS TIME. EDEMA NOTED TO STEPHANIE LE AND UE. PATIENT WITH KUSMAULS RESPIRATIONS. GURGGLING NOTED. OK FOR ATROPINE PER DR. ARBOLEDA. SCOPALAMINE PLACED BEHIND LEFT EAR. RUIZ INTACT. WILL CONTINUE TO MONITOR. CALL LIGHT WITHIN REACH.
--- NOTE | 2020-02-06 23:15 | NUR ---
TEMP 102.4 AX O2 61% REPTORY WORKING ON O2. NEW ORDER FROM [employer] FOR TYL. 650MG SUP. Q 4 PRN.
--- NOTE | 2020-02-07 04:43 | NUR ---
PAINT ON COMFORT CARE.. V/S TEMP 102.4 AX B/P 86/31, P 122, R 40, O2 61% ON 5 LETERS. RESP. PLACED NON REBREATHER MASK SATES UP TO 90%, CALL TO SHELL ASSEMBLER ORDER FOR TYLONAL 650 SUPP. Q4 HR. PRN GIVEN X 1. MORPHINE SOLAR DESIGNER/INSTALLER IN PLACE AT 1MG HR CONTIUS. AT 0118 NO BREATHING OR V/S PRESENT . PRONOUNCED AT 0150AM. JYOTI RAMOS CALLED AT [phone]. AT 0153 AND INFORMED. SHE ASK THAT WE CALL THE OTHER SISTER STATED THAT SHE WAS POA. CALLED DAMIEN PISANO [phone] AT 0157 AND INFORMED ASK ABOUT HOME , SHE STATED SHE DID NOT KNOW CONTACT THE [facility] ( [facility]) SUPERVISOR CARTOGRAPHY Marcella BOONE AT 0201. [facility] CALLED AT 0220 AND COULD NOT FIND NAME OF HOME. MARIEL CALLED AT 0236 TALKED WITH [facility] REF# [id number]. DOES NOT MEET CRITERIA REASONS OF ALZHEIMERS &B PARKINSONS. CALL BACK TO DAMIEN PISANO AND INFORMED THAT [facility] DID NOT HAVE A HOME ON CHART THEY COULD SEE. SHE WANTED STAFF TO PICK ONE EDUCATED HER THAT WE COULD NOT DO THAT. GAVE HER A LIST OF NAMES AND SHE STATED USE THE FRIST ONE. CONFREMED THAT SHE WANTED [facility] AND CALLED THEM AT 0230. BODY PICKED UP AT 0330.
--- NOTE | 2020-02-07 08:36 | MORECARE ---
CASE MANAGEMENT DISCHARGE SUMMARY PATIENT: KOFI AWAD UNIT: [id number] ADM DATE: 01/26/20 AGE: 74 : 47 SEX: F ROOM/BED: D.2240 AUTHOR: JESSICA FARAH PHYSICIAN: REFERRING PHYSICIAN: KIRILL PONCE MD DATE OF SERVICE: 02/07/20 Discharge Plan Patient Name: KOFI AWAD Facility: [facility]:[place] : 1945 Planned Disposition: Halfway Facility Anticipated Discharge Date: Discharge Date: 02/07/2020 Expected LOS: Initial Reviewer: [email or web address] Initial Review Date: 01/26/2020 Generated: 02/07/20 9:35 am DCP- Discharge Planning Updated by [email or web address]: Helena Cavazos on 01/27/20 4:[address] PATIENT IS KNOWN TO CASE MANAGEMENT FROM PREVIOUS ADMIT W/ DISCHARGE BACK TO [facility] ON 01/21/2020. PATIENT IS [employer] RESIDENT. REPORTEDLY HER SISTER HAS POA AND LIVES OUT OF TOWN PREVIOUS CONTACT PHONE NUMBERS JYOTI RAMOS- [phone] DAMIEN PISANO - [phone]- POA PER FACILITY PATIENT PRESENTED TO ER W/ FEVER, RESP DISTRESS,HYPOTENSION, HYPOXEMIA AND AGONAL RESP. INTUBATED. VENT/ VASOPRESSORS. TELEPHONE CALL TO [facility] PATIENT WAS A FULL CODE AT FACILITY PER THE STAFF. CM TO FOLLOW FOR DISCHARGE PLANNING. WILL NEED TO SPEAK W/ POA. Last DP export: 01/27/20 4:51 pm Patient Name: KOFI AWAD Page [phone] at 0836 All edits/amendments must be made on the electronic document DICTATION DATE: 02/07/20834 DISABILITY RATER: SAUL 02/07/20834 RPT#: [id number] DC DATE:02/07/20 STATUS: DIS IN [facility] [address] [place] [address] END OF REPORT
--- NOTE | 2020-02-07 15:35 | NUR ---
Per CMS protocol, restraint report logged into data base.
[2020-02-08 10:11] LABS: FUNGUS CULTURE RESULT 1 Candida albicans (()); FUNGUS MYCOLOGY CULTURE Preliminary report (())
== END 2020-02-07 03:30 | DRG 870 ==
LOC: D.ER 03:10 → D.ICU 14:05 → D.MS 02-06 18:00
PROVIDERS: Family Medicine; Internal Medicine Pulmonary Disease; ADMIT Family Medicine; ATTEND Family Medicine
PROC: 5A1955Z Respiratory Ventilation, Greater than 96 Consecutive Hours (ICD-10-PCS; principal; 2020-01-26)
PROC: 0BH17EZ Insertion of Endotracheal Airway into Trachea, Via Natural or Artificial Opening (ICD-10-PCS; 2020-01-26)
PROC: 05H633Z Insertion of Infusion Device into Left Subclavian Vein, Percutaneous Approach (ICD-10-PCS; 2020-01-28)
PROC: 0B9F8ZX Drainage of Right Lower Lung Lobe, Via Natural or Artificial Opening Endoscopic, Diagnostic (ICD-10-PCS; 2020-02-01)
DX: A41.9 Sepsis, unspecified organism (principal); J18.9 Pneumonia, unspecified organism; R65.21 Severe sepsis with septic shock; J96.01 Acute respiratory failure with hypoxia; G21.9 Secondary parkinsonism, unspecified; N17.9 Acute kidney failure, unspecified; N39.0 Urinary tract infection, site not specified; G30.9 Alzheimer's disease, unspecified; F02.80 Dementia in other diseases classified elsewhere, unspecified severity, without behavioral disturbance, psychotic disturbance, mood disturbance, and anxiety; G20 Parkinson's disease; F31.9 Bipolar disorder, unspecified; M19.90 Unspecified osteoarthritis, unspecified site; I12.9 Hypertensive chronic kidney disease with stage 1 through stage 4 chronic kidney disease, or unspecified chronic kidney disease; N18.3 Chronic kidney disease, stage 3 (moderate); D63.1 Anemia in chronic kidney disease; E87.5 Hyperkalemia; K59.09 Other constipation; E55.9 Vitamin D deficiency, unspecified; G62.9 Polyneuropathy, unspecified; D50.9 Iron deficiency anemia, unspecified; K21.9 Gastro-esophageal reflux disease without esophagitis